=== PATIENT | male | born 1950 | race African-American/Black ===

== ENCOUNTER 2018-07-20 10:33 | Observation (INO) | payer MEDICARE ==
[2018-07-20 11:07] LABS: #Eosinphils 0.2 thou/uL (0.0-0.7); #Lymphocytes 1.3 thou/uL (1.20-3.40); #Monocytes 0.5 thou/uL (0.11-0.59); #Neutrophils 4.9 thou/uL (1.40-6.50); %Basophils 0.5 % (0.0-1.0); %Eosinophils 2.9 % (0.0-10.0); %Lymphocytes 18.5 % (21.0-51.0); %Monocytes 6.9 % (0.0-10.0); %Neutrophils 71.3 % (42.0-75.0); Hemoglobin 15.4 g/dL (14.0-18.0); Mean Corpuscular HGB CONC 32.6 g/dL (32.0-36.0); Mean Corpuscular Hemoglobin 31.2 pg (27.0-31.0); Mean Corpuscular Volume 95.6 fL (78.0-98.0); Platelet Count 145 thou/uL (130-400); Red Blood Cell (RBC) Count 4.93 mill/uL (4.70-6.10); White Blood Cell (WBC) Count 6.9 thou/uL (4.8-10.8)
--- NOTE | 2018-07-20 11:26 | CT ---
CT HEAD NONCONTRAST: INDICATIONS: Posttraumatic injury with pain. FINDINGS: The ventricular system is stable in size. There is mild chronic ischemic disease. No evidence of in tracranial hemorrhage, mass effect, or midline shift. There is scattered paranasal sinus mucosal thi ckening. No depressed calvarial fracture. There is a small lucency of the frontal bone, to the left of midline, grossly stable to the 01/21/2012 exam, favoring a benign vascular process. IMPRESSION: No evidence of intracranial hemorrhage or mass effect. POS: [facility]
[2018-07-20 11:33] LABS: ALT (SGPT) 9 U/L (8-55); AST (SGOT) 15 U/L (5-34); Albumin 3.6 g/dL (3.4-4.8); Alkaline Phosphatase 72 U/L (40-150); Anion Gap 23 mmol/L (10-20); BUN (Urea Nitrogen) 66 mg/dL (8.4-25.7); Bilirubin, Total 0.4 mg/dL (0.2-1.2); CK (CPK) 294 U/L (30-200); Calc. Creatinine Clearance 0 mL/min (70-130); Calcium 7.1 mg/dL (7.8-10.44); Carbon Dioxide 18 mmol/L (23-31); Chloride 98 mmol/L (98-107); Estimated GFR-MDRD 5; Glucose 112 mg/dL (80-115); Potassium 5.7 mmol/L (3.5-5.1); Protein, Total 9.6 g/dL (5.8-8.1); Sodium 133 mmol/L (136-145)
--- NOTE | 2018-07-20 11:49 | CT ---
CT CERVICAL SPINE WITHOUT CONTRAST: INDICATIONS: Fall last p.m. with injury to head. COMPARISON: Cervical spine CT from 03/26/2014. TECHNIQUE: Multiple axial tomograms are obtained through the cervical spine with multiplanar reconstruction. FINDINGS: The exam is degraded due to cervical spine hardware artifact. Sagittal images are especially degrade d. There are pedicle screws and rods transfixing the cervical spine bilaterally. Pedicle screws are see n at the C3, C4, C5, C6, C7, T1, and T2 levels. Rods are in place. Anterior plate and screws transfix C4, C5, and C6, with interbody fusion at these levels. There are interbody implants present. The hardware all appears unchanged in position when compared to the prior study. Posterior laminecto my changes are present throughout the cervical spine, to the C7 level. No acute fracture identified. IMPRESSION: 1. Limited examination due to artifact. 2. Postoperative changes are noted with extensive hardware in the cervical spine. 3. No acute fracture identified. POS: [facility]
--- NOTE | 2018-07-20 11:54 | CT ---
CT THORACIC SPINE: INDICATIONS: Fall with pain. FINDINGS: There is posterior metallic fusion, partially imaged at the upper thoracic spine, and partially visua lized ACDF changes at the lower cervical spine. No compression fracture or significant subluxation. Multilevel endplate degenerative change and multilevel endplate irregularities present, indicative o f Schmorl's node formation. No significant retropulsion of bone into the vertebral canal. Incidental note of an exophytic hypodensity from the partially visualized right kidney. Subtle lobul arity of the partially imaged left kidney also seen. Findings are incompletely evaluated. Incidental note of a dystrophic calcification adjacent to the posterior and medial aspect of the sple en. There is atherosclerosis. IMPRESSION: 1. No acute fracture or subluxation of the thoracic spine. There is multilevel degenerative change. 2. Incidental note of cystic structures of each kidney, incompletely evaluated. Consider followup w ith renal ultrasound. POS: [facility]
[2018-07-20] MEDS ORDERED: Senokot S 8.6-50 MG TAB PO PRN (14:25)
[2018-07-20] MEDS ORDERED: Acetaminophen 325 MG TAB PO PRN (14:25)
[2018-07-20] MEDS ORDERED: HumaLOG 300 UNITS/3 ML VIAL SC PRN (14:28)
[2018-07-20] MEDS ORDERED: Dextrose 50% Abboject 50 ML SYRINGE SLOW IVP PRN (14:28)
[2018-07-20] MEDS ORDERED: Dextrose 5% in Water 1,000 ML IV PRN (14:28)
--- NOTE | 2018-07-20 15:01 | HP ---
PRIMARY CARE PROVIDER: Dr. Yoselin Lopez. CHIEF COMPLAINT: Fall. HISTORY OF PRESENT ILLNESS: Mr. Alexander is a pleasant 68-year-old gentleman, who was seen at [facility] on July 20, 2018. He has end-stage renal disease and undergoes hemodialysis, Wednesday, Wednesday, and Wednesday. He reports that he was not feeling well two days ago, which is Wednesday. He did not go for dialysis. He also reports that he sleeps in a wheelchair in a seated position. He reports sliding out of the chair at times and falling to the ground. He had a fall last night as well. He reports falling on his face and states that he was too weak to get up. He was on the floor all night. His sister found him today morning and called 911. The patient currently denies any pain anywhere. He denies any nausea or vomiting. REVIEW OF SYSTEMS: All other systems reviewed and found to be negative. PAST MEDICAL HISTORY: End-stage renal disease, on hemodialysis, suspected chronic obstructive pulmonary disease, diabetes mellitus type 2 with end-stage renal disease, chronic back pain, myocardial infarction, cervical spondylosis with radiculopathy, hypertension. PAST SURGICAL HISTORY: Spinal surgery, cervical spine fixation, subtotal parathyroidectomy, status post left upper extremity AV fistula placement. ALLERGIES: CODEINE. CURRENT MEDICATIONS: These will need to be clarified, the patient does not recall the names of his current medications. FAMILY HISTORY: Significant for hypertension. SOCIAL HISTORY: The patient is a current smoker. 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 He denies alcohol use. PHYSICAL EXAMINATION: GENERAL: On examination, Mr. Alexander is awake and alert, not in acute distress. VITAL SIGNS: Blood pressure is 146/89, pulse 90, respiratory rate 16, and oxygen saturation 97% on room air. He is afebrile. EYES: No scleral icterus, no conjunctival pallor. ENT: Moist mucosal membranes. No oropharyngeal erythema or exudates. NECK: Supple, nontender, trachea is midline. RESPIRATORY: Accessory muscles of breathing are not active. Chest wall movements are symmetric bilaterally. LUNGS: Lung examination reveals few bibasilar crackles. CARDIOVASCULAR: S1 and S2 are heard, regular. Peripheral pulses palpable. No carotid bruit. No pericardial rub. ABDOMEN: Soft, nontender, bowel sounds heard, no hepatomegaly, no splenomegaly. NEUROLOGIC: Cranial nerves 2 through 12 intact, deep tendon reflexes 2+. MUSCULOSKELETAL: Power is 5/5 in all four extremities. SKIN: He has bilateral lower extremity edema. LYMPHATIC: No cervical lymphadenopathy. PSYCHIATRIC: Normal mood, normal affect, the patient is oriented to person, place, and time. LABORATORY DATA AND DIAGNOSTIC DATA: Mr. Alexander is labs and investigations were reviewed. I reviewed his electrocardiogram, which shows sinus tachycardia, no ST changes to suggest an acute coronary syndrome. I also reviewed a noncontrast CT scan of the brain, which did not show any evidence of intracranial bleed. He also had cervical spine CT, which did not show any acute fracture. He has postoperative changes with extensive hardware in the cervical spine. CT scan of the thoracic spine did not show any acute fracture or subluxation of the thoracic spine. He has multilevel degenerative change. Incidental note was made of cystic structures of each kidney. He has an unremarkable CBC, decreased sodium of 133, elevated potassium of 5.7, elevated anion gap of 23, elevated blood urea nitrogen of 66, elevated creatinine of 13.06, elevated CK of 294, and normal albumin. ASSESSMENT AND PLAN: Mr. Alexander is a pleasant 68-year-old gentleman, who was seen at [facility] on July 20, 2018. His problem list includes: 1. End-stage renal disease, on dialysis: The patient has a history of end-stage renal disease and was on hemodialysis Wednesday, Wednesday, and Wednesday. Unfortunately, he missed hemodialysis two days ago and has a significant biochemical abnormalities. He also appears to be in some degree of volume overload, judging by his chest crackles. He will be admitted to the hospital for further management including emergent hemodialysis. Nephrology Service has already been contacted by emergency room physician. 2. Fall: Mr. Alexander reports frequent falls. We will request physiotherapy evaluation. 3. Diabetes mellitus type 2: We will start Accu-Cheks and insulin sliding scale. 4. Hypertension: We will resume the patient's home medications once clarified, monitor vital signs, and titrate antihypertensives as needed. 5. Tobacco abuse: The patient has been counseled regarding tobacco cessation. We will start him on nicotine replacement therapy. 6. Coronary artery disease: Appears to be stable. Many thanks for allowing me to participate in your patient's care. Please feel free to contact me with any questions or concerns. LEVEL OF RISK: High. LEVEL OF COMPLEXITY: High. Job ID: [id number]
[2018-07-20] MEDS: Heparin 5,000 UNITS/ML VIAL SC SCH ×2 (15:30→20:04)
[2018-07-20 17:33] VITALS: BMI 41.3
[2018-07-21 05:06] LABS: #Eosinphils 0.2 thou/uL (0.0-0.7); #Lymphocytes 1.2 thou/uL (1.20-3.40); #Monocytes 0.4 thou/uL (0.11-0.59); #Neutrophils 4.4 thou/uL (1.40-6.50); %Basophils 0.5 % (0.0-1.0); %Eosinophils 3.7 % (0.0-10.0); %Monocytes 6.3 % (0.0-10.0); %Neutrophils 70.5 % (42.0-75.0); Hemoglobin 13.9 g/dL (14.0-18.0); Mean Corpuscular HGB CONC 32.9 g/dL (32.0-36.0); Mean Corpuscular Hemoglobin 31.3 pg (27.0-31.0); Mean Corpuscular Volume 95.2 fL (78.0-98.0); Mean Platelet Volume 9.3 fL (7.4-10.4); Platelet Count 136 thou/uL (130-400); RBC Distribution Width 12.8 % (11.5-14.5); Red Blood Cell (RBC) Count 4.44 mill/uL (4.70-6.10); White Blood Cell (WBC) Count 6.2 thou/uL (4.8-10.8)
[2018-07-21 05:35] LABS: Anion Gap 17 mmol/L (10-20); BUN (Urea Nitrogen) 30 mg/dL (8.4-25.7); Calc. Creatinine Clearance 15 mL/min (70-130); Calcium 7.2 mg/dL (7.8-10.44); Carbon Dioxide 24 mmol/L (23-31); Chloride 97 mmol/L (98-107); Estimated GFR-MDRD 8; Glucose 133 mg/dL (80-115); Potassium 4.3 mmol/L (3.5-5.1); Sodium 134 mmol/L (136-145)
--- NOTE | 2018-07-21 08:02 | RAD ---
CHEST 1 VIEW: HISTORY: Cough. COMPARISON: 11/20/2015. FINDINGS: Cardiac silhouette is magnified by projection. Pulmonary vasculature remains upper limits of normal. Mediastinum is midline with aortic calcification. No lobar consolidation or evidence of pneumothor ax. Left subclavian stent and postoperative changes of the cervicothoracic spine are again demonstra teofilo. IMPRESSION: 1. Mild pulmonary vascular congestion appears chronic. 2. Atherosclerosis. POS: [facility]
[2018-07-21] MEDS ORDERED: Nicotine 21 MG PATCH TD SCH (09:00)
[2018-07-21] MEDS: Heparin 5,000 UNITS/ML VIAL SC SCH ×2 (09:01→15:53)
[2018-07-21 12:17] VITALS: TEMP 98.2
[2018-07-21 15:38] VITALS: BP 125/60
--- NOTE | 2018-07-21 17:00 | DIS ---
DATE OF ADMISSION: 07/20/2018 DATE OF DISCHARGE: 07/21/2018 PRIMARY CARE PROVIDER: Yoselin Lopez MD DISCHARGE DIAGNOSES: 1. End-stage renal disease, on dialysis. 2. Missed dialysis session. 3. Probable volume overload. 4. Recurrent falls. CONDITION: Condition of the patient on the day of discharge: Stable. I assessed Mr. Alexander on the day of discharge. He denies any chest pain or shortness of breath. He reports feeling better. Vital signs are stable. S1 and S2 are heard, regular. Lungs are clear to auscultation bilaterally. HOSPITAL COURSE: Mr. Alexander is a pleasant 68-year-old gentleman, who was admitted to [facility] on July 20, 2018, for falls and missed dialysis session. Please refer to my history and physical note dated July 20, 2018, for further details. He underwent emergent hemodialysis by Nephrology Service. He improved clinically. He also has a history of recurrent falls. He was evaluated by Physical Therapy Service. He is being discharged home with home health with PT, OT, and Nursing. [facility] has been contacted for the same. DISCHARGE MEDICATIONS: 1. Amoxicillin 500 mg three times a day. 2. Aspirin 81 mg daily. 3. Tums 1000 mg at bedtime. 4. [place] p.r.n. 5. Metoprolol tartrate 12.5 mg 2 times a day. 6. Minoxidil 10 mg daily. 7. Lyrica 75 mg daily as needed. 8. Nicoderm CQ 21 mg daily. Please note that the above medications were as described by the patient to be his pre-admission home medications except for the nicotine patch. DISCHARGE DESTINATION: Home. Many thanks for allowing me to participate in your patient's care. Please feel free to contact me with any questions or concerns. Job ID: [id number]
--- NOTE | 2018-07-23 20:52 | EKG ---
Test Reason : FALL Blood Pressure : / mmHG Vent. Rate : 102 BPM Atrial Rate : 102 BPM P-R Int : 150 ms QRS Dur : 088 ms QT Int : 394 ms P-R-T Axes : 010 -41 063 degrees QTc Int : 513 ms Sinus tachycardia with occasional Premature ventricular complexes Left axis deviation Low voltage QRS Abnormal ECG Confirmed by CHRIS ANDERSON, OLVIN Hernandez ([id number]), medical transcription editor CAESAR LENTZ ([id number]) on 07/23/2018 8:52:38 PM Referred By: Confirmed By:OLVIN PEREZ MD
== END 2018-07-21 17:23 | disposition home or self-care (01) ==
LOC: ERS 10:33 → ERHOLD 12:13 → 2SW 17:09
PROVIDERS: ADMIT Internal Medicine; ATTEND Internal Medicine
DX: I12.0 Hypertensive chronic kidney disease with stage 5 chronic kidney disease or end stage renal disease (principal); E11.22 Type 2 diabetes mellitus with diabetic chronic kidney disease; N18.6 End stage renal disease; G89.29 Other chronic pain; M54.9 Dorsalgia, unspecified; I25.2 Old myocardial infarction; F17.210 Nicotine dependence, cigarettes, uncomplicated; F11.11 Opioid abuse, in remission; I25.10 Atherosclerotic heart disease of native coronary artery without angina pectoris; Z91.81 History of falling; Z99.2 Dependence on renal dialysis; Z88.5 Allergy status to narcotic agent; Z79.82 Long term (current) use of aspirin; Z79.899 Other long term (current) drug therapy; Z98.1 Arthrodesis status; W19.XXXA Unspecified fall, initial encounter
CPT/HCPCS: 70450; 71045; 72125; 72128; 80048; 80053; 82550; 82962 ×2; 83605; 85025 ×2; 93005; 94640; 97530; 99285; G0378; 36415; 36416; 96360; J1644; J7620

== ENCOUNTER 2019-05-08 12:32 | Inpatient (IN) | payer MEDICARE ==
--- NOTE | 2019-05-08 13:31 | RAD ---
Portable frontal chest radiograph: 05/08/2019 COMPARISON: 07/21/2018 HISTORY: Weakness FINDINGS: There is extensive postoperative hardware at the cervicothoracic junction. There is extensi ve vascular stent material in the supraclavicular region on the left. The cardiac silhouette is enlarged which may signify magnification and/or cardiomegaly. There is pulmonary vascular congestion, worsened. There is increased linear interstitial density in both lung bases, new. IMPRESSION: Pulmonary vascular congestion with increased linear density in both lung bases may signif y mild pulmonary edema or volume loss. PA and lateral imaging of the chest suggested.
[2019-05-08 13:33] LABS: INR-International Normal Ratio 1.2; PTT 35.9 SEC (22.9-36.1); Prothrombin Time 14.7 SEC (12.0-14.7)
[2019-05-08 13:34] LABS: Hemoglobin 12.6 g/dL (14.0-18.0); Mean Corpuscular HGB CONC 33.9 g/dL (32.0-36.0); Mean Corpuscular Hemoglobin 31.9 pg (27.0-31.0); Mean Platelet Volume 8.9 fL (7.4-10.4); Platelet Count 140 thou/uL (130-400); RBC Distribution Width 13.4 % (11.5-14.5); Red Blood Cell (RBC) Count 3.95 mill/uL (4.70-6.10); White Blood Cell (WBC) Count 16.1 thou/uL (4.8-10.8)
[2019-05-08] MEDS ORDERED: Acetaminophen 500 MG TAB ONE (13:35)
[2019-05-08 13:55] LABS: ALT (SGPT) 8 U/L (8-55); AST (SGOT) 15 U/L (5-34); Albumin 3.6 g/dL (3.4-4.8); Alkaline Phosphatase 77 U/L (40-110); Anion Gap 22 mmol/L (10-20); BUN (Urea Nitrogen) 54 mg/dL (8.4-25.7); Bilirubin, Total 0.5 mg/dL (0.2-1.2); CK (CPK) 177 U/L (30-200); Calc. Creatinine Clearance 0 mL/min (70-130); Calcium 7.7 mg/dL (7.8-10.44); Carbon Dioxide 17 mmol/L (23-31); Chloride 100 mmol/L (98-107); Estimated GFR-MDRD 7; Globulin 5.7 g/dL (2.4-3.5); Glucose 153 mg/dL (80-115); Potassium 5.5 mmol/L (3.5-5.1); Protein, Total 9.3 g/dL (5.8-8.1); Sodium 133 mmol/L (136-145)
[2019-05-08] MEDS ORDERED: Sodium Chloride 0.9% 100 ML ONE (14:05)
[2019-05-08] MEDS ORDERED: cefTRIAXone\\ROCEPHIN 2 GM VIAL ONE (14:05)
[2019-05-08] MEDS ORDERED: Azithromycin 500 MG VIAL ONE (14:05)
[2019-05-08 14:09] LABS: Band 13 % (5-11); Lymphocytes 2 % (21-51); Monocytes 1 % (0-10); Neutrophil 83 % (42-75); Reactive Lymphocytes 1 % (0-10)
[2019-05-08 14:10] LABS: MDiff Complete? YES; Polychromasia SLIGHT = 2-3 cells (100X) (0-2/hpf)
[2019-05-08] MEDS ORDERED: Dextrose 50% Abboject 50 ML SYRINGE SLOW IVP PRN (15:22)
[2019-05-08] MEDS ORDERED: Dextrose 5% in Water 1,000 ML IV PRN (15:22)
[2019-05-08 17:04] LABS: CKMB 1.8 ng/mL (0-6.6)
[2019-05-08 19:39] LABS: CO2 Tension 43.1 mmHg (35.0-45.0); Calcium, Ionized 0.99 mmol/L (1.12-1.30); Carboxyhemoglobin (COHb) 2.4 gm% (0.0-3.0); Hemoglobin (Hb) 12.7 g/dL (14.0-18.0); Potassium - ABG Lab 4.31 mmol/L (3.70-5.30)
[2019-05-08 19:40] LABS: ALV-art Gradient 30.855 (0-20); Puncture Site R RADIAL
[2019-05-08] MEDS: Famotidine 20 MG TAB PO SCH (20:45)
[2019-05-08] MEDS: Heparin 5,000 UNITS/ML VIAL SC SCH (20:45)
[2019-05-08] MEDS: Metoprolol Tartrate 25 MG TAB PO SCH (20:45)
[2019-05-08 20:58] LABS: CKMB 2.2 ng/mL (0-6.6)
--- NOTE | 2019-05-08 21:38 | HP ---
CHIEF COMPLAINT: Weakness. HISTORY OF PRESENT ILLNESS: This patient is a 68-year-old male with a history of end-stage renal disease, on dialysis. The patient was last admitted here in June 2018, at which time, he apparently had fallen out of his wheelchair, and was too weak to get up. Apparently that same scenario played out again today. Apparently, it was a witnessed slide out of his recliner onto the ground gently with his back resting up against the recliner. He was unable to get up because he was too weak and fire department was called in order to give lift assistance. They noted the patient to be febrile, tachycardic and generally weak. He was subsequently brought to the emergency department. He denies any cough or sputum production (the patient did cough some during my interview with him). He denies any abdominal pain, chest pain, diarrhea, or constipation. Says he has been eating. Says he was supposed to get dialysis today, but missed that. He actually denies any significant shortness of breath. REVIEW OF SYSTEMS: All other systems reviewed. All pertinent positives and negatives noted in the history of present illness. PAST MEDICAL HISTORY: End-stage renal disease, on hemodialysis, COPD, diabetes mellitus, chronic back pain, history of an WI, history of cervical spondylosis with radiculopathy and hypertension. PAST SURGICAL HISTORY: Cervical spinal fixation with rods and screws. History of a subtotal parathyroidectomy and left upper extremity AV fistula placement. ALLERGIES: CODEINE. CURRENT MEDICATIONS: 1. Levemir 20 units t.i.d. 2. Metoprolol 25 mg b.i.d. 3. Bellamy 5/325 q.6 hours p.r.n. pain. PHYSICAL EXAMINATION: VITAL SIGNS: Initially, BP 131/74, pulse 117, respirations 36, temperature is 101.8, O2 saturation 96% on room air. GENERAL APPEARANCE: The patient is age appropriate. He is sleeping. He does awaken with stimulus, but tends to go back to sleep fairly easily. He is otherwise conversant. HEENT: He has very muddy sclera, some opacity of the irises. He has no OP lesions. Very long tongue with generally compromised airway from large tongue and a thick neck. NECK: Supple and symmetric. HEART: Regular rate and rhythm without murmurs, gallops, or rubs. LUNGS: Very diminished throughout with minimal scattered rales. No rhonchi. No wheezes. ABDOMEN: Morbidly obese, soft, nontender, and nondistended. Positive bowel sounds. No masses. No organomegaly. EXTREMITIES: No cyanosis. He does have chronic stasis dermatitis with some superficial open lesions with some possible excoriations in these areas as well. NEUROLOGIC: The patient has normal cognition when awake. Normally functioning cranial nerves. Moves extremities spontaneously. Has no evidence of focal deficits. PSYCHIATRIC: Again, he is somnolent, but easily awaken and otherwise appropriate with normal affect and behavior. LABORATORY DATA: White count 16.1, hemoglobin 12.6, platelets 140, neutrophils 83%, bands 13%, lymphocytes 2%. INR 1.2. PTT 35.9. Sodium 133, potassium 5.5, chloride 100, CO2 is 27, BUN 54, creatinine is 9.75, glucose 153, calcium is 7.7. Lactic acid 1.9, bilirubin 0.5, AST 15, ALT 18, and alkaline phosphatase 77. Troponin 0.062. BNP is 344.3, protein 9.3, albumin 3.6. Chest x-ray, pulmonary vascular congestion with increased linear density in both lung bases, which may signify mild pulmonary edema with volume loss. EKG shows a sinus tachycardia with some left axis deviation. ED COURSE: The patient received 1 L of normal saline, ceftriaxone 2 g IV piggyback and azithromycin 500 mg IV piggyback as well as Tylenol 1 g. IMPRESSION AND PLAN: 1. Sepsis secondary to pneumonia. The patient has received a liter of fluids in the emergency department. He appears to have some volume overload on his chest x-ray. Therefore, further aggressive fluid resuscitation is likely contraindicated. 2. Pneumonia. He has received Rocephin and azithromycin for community-acquired pneumonia. We will continue with those while the patient is here in the hospital. We will give p.r.n. nebulizer treatments at this time. We will also check an ABG. His CO2 on his venous chemistries is not bad. He seems to be saturating okay, but he is a little bit obtunded. We want to make sure that there is nothing more going on with that. We will continue with supplemental oxygen as needed. 3. Ongoing tobacco abuse. Can provide nicotine patch if he should need one going forward. 4. End-stage renal disease, on dialysis. Dr. Pan indicated he would talk to Dr. Mota as the patient would need dialysis today especially after getting some fluid resuscitation given his potassium and the fact that it is his usual dialysis day. 5. Diabetes mellitus, Accu-Cheks sliding scale insulin. 6. Hypertension. Continue with metoprolol. 7. Indeterminate troponin, likely secondary to his end-stage renal disease. We will go ahead and check a couple more. Job ID: [id number]
[2019-05-09] MEDS: Metoprolol Tartrate 25 MG TAB PO SCH ×2 (05:51→20:05)
[2019-05-09 05:55] LABS: #Lymphocytes 0.6 thou/uL (1.20-3.40); #Monocytes 0.5 thou/uL (0.11-0.59); #Neutrophils 12.9 thou/uL (1.40-6.50); %Basophils 0.1 % (0.0-1.0); %Eosinophils 0.3 % (0.0-10.0); %Lymphocytes 4.5 % (21.0-51.0); %Monocytes 3.4 % (0.0-10.0); %Neutrophils 91.8 % (42.0-75.0); Hemoglobin 12.1 g/dL (14.0-18.0); Mean Corpuscular HGB CONC 33.3 g/dL (32.0-36.0); Mean Corpuscular Hemoglobin 32.2 pg (27.0-31.0); Mean Corpuscular Volume 96.9 fL (78.0-98.0); Mean Platelet Volume 8.2 fL (7.4-10.4); Platelet Count 124 thou/uL (130-400); RBC Distribution Width 13.6 % (11.5-14.5); Red Blood Cell (RBC) Count 3.75 mill/uL (4.70-6.10); White Blood Cell (WBC) Count 14.1 thou/uL (4.8-10.8)
[2019-05-09 06:11] LABS: Anion Gap 14 mmol/L (10-20); BUN (Urea Nitrogen) 29 mg/dL (8.4-25.7); Calc. Creatinine Clearance 20 mL/min (70-130); Calcium 7.5 mg/dL (7.8-10.44); Carbon Dioxide 26 mmol/L (23-31); Chloride 98 mmol/L (98-107); Estimated GFR-MDRD 11; Glucose 98 mg/dL (80-115); Potassium 4.6 mmol/L (3.5-5.1); Sodium 133 mmol/L (136-145)
[2019-05-09] MEDS: Famotidine 20 MG TAB PO SCH (09:09)
[2019-05-09] MEDS: Heparin 5,000 UNITS/ML VIAL SC SCH (09:21)
[2019-05-09] MEDS ORDERED: Heparin 10,000 UNITS/ 10 ML VIAL ONE (11:11)
[2019-05-09] MEDS ORDERED: cefTRIAXone\\ROCEPHIN 1 GM in Sodium Chloride 0.9% 100 ML IVPB SCH (14:00)
[2019-05-09] MEDS ORDERED: Vancomycin HCl 1 GM in Premix Bag 1 BAG IVPB SCH ×2 (14:15→14:45)
[2019-05-09] MEDS ORDERED: Vancomycin HCl 1.25 GM in Sodium Chloride 0.9% 250 ML 250 ML IVPB SCH (14:45)
[2019-05-09] MEDS ORDERED: Vancomycin HCl 750 MG in Sodium Chloride 0.9% 250 ML 250 ML IVPB SCH (14:45)
[2019-05-09] MEDS ORDERED: Vancomycin Sliding Scale 1 EACH FS ONE (14:45)
[2019-05-09] MEDS ORDERED: Vancomycin HCl 1.5 GM in Sodium Chloride 0.9% 250 ML 300 ML IVPB SCH (14:45)
[2019-05-09] MEDS ORDERED: HOLD VANCOMYCIN FOR LEVEL >20 FS SCH (14:45)
[2019-05-09] MEDS ORDERED: Vancomycin HCl 500 MG in Sodium Chloride 0.9% 100 ML IVPB SCH (15:00)
[2019-05-09] MEDS ORDERED: Cefepime 1 GM in Sodium Chloride 0.9% 100 ML IVPB SCH (15:00)
[2019-05-09] MEDS ORDERED: Azithromycin 500 MG in Sodium Chloride 0.9% 250 ML 250 ML IVPB SCH (15:00)
--- NOTE | 2019-05-09 15:50 | CT ---
CT CHEST WITHOUT CONTRAST CLINICAL INDICATION: Cough and pneumonia. Abnormal chest x-ray. Sepsis. COMPARISON: CTA chest on 11/23/2015. FINDINGS: Aorta: Limited evaluation due to lack of intravenous contrast. Vascular calcifications are seen in th e thoracic aorta. The thoracic aorta is normal in caliber. Lungs: There is no evidence of a pleural effusion. There is atelectasis present in the lower lung zon es bilaterally. No discrete pulmonary nodule or mass is identified. Mediastinum: Vascular calcifications are seen in the coronary arteries. Lack of intravenous contrast limits evaluation of the mediastinal structures, no definite enlarged lymph nodes are appreciated. The heart is at the upper limits of normal in size. Thyroid gland: Grossly normal nonenhanced CT appearance where visualized. Osseous structures: There are postsurgical changes of the cervicothoracic junction with bipedicular s crews and posterior rods transfixing these levels. Laminectomy defects are imaged involving the lower cervical spine. Degenerative changes are seen in the spine. There are lucencies seen in a few i nferior endplates of the lower thoracic spine which may be related to prominent Schmorl's nodes. Chest wall: There are vascular stents seen in the region of the cephalic and subclavian veins. Upper abdomen: Multiple hypodense and hyperdense renal cystic lesions are seen in each visualized kid nahed with prominent vascular calcifications in the abdominal aorta as well as involving the renal arteries and visualized mesenteric vessels. IMPRESSION: 1. No acute findings. 2. Additional incidental findings as described above.
[2019-05-09] MEDS ORDERED: Sodium Chloride 0.9% 250 ML IV SCH (16:30)
--- NOTE | 2019-05-09 17:49 | PRG ---
DATE OF SERVICE: 05/09/2019 SUBJECTIVE: A 68-year-old male with end-stage renal disease on hemodialysis, hypertension, and diabetes mellitus type 2, presented to the emergency room with generalized weakness. He was unable to get dialysis yesterday due to significant weakness. His temperature in the emergency room was 101.8 with respirations of 36, pulse rate of 117 with a blood pressure of 131/74. He received ceftriaxone with azithromycin for possible pneumonia. At this time, the patient feels the same. He denies any nausea, vomiting, diarrhea, abdominal discomfort, back pain, or focal neurologic deficit. No skin rash reported. REVIEW OF SYSTEMS: As discussed above. No cough, shortness of breath, or wheezing reported. PHYSICAL EXAMINATION: VITAL SIGNS: Temperature 100.1 with pulse rate of 120, respirations of 25, blood pressure 114/47 with O2 saturation 95% on room air. GENERAL: A 68-year-old male, in no apparent distress. Denies any pain. HEENT: Head, atraumatic and normocephalic. Sclerae anicteric. NECK: Supple. No JVD. No carotid bruit. LUNGS: Clear to auscultation bilaterally with scattered rales and rhonchi at bases. No accessory muscle use. HEART: S1 and S2 present, tachycardic. No rubs or gallops. ABDOMEN: Soft. Bowel sounds present. EXTREMITIES: Edema in bilateral lower extremity. No calf tenderness. NEUROLOGIC: Grossly nonfocal. PSYCHIATRIC: Alert, awake, and oriented x3. Normal affect. LABORATORY FINDINGS: WBC 16.1 yesterday and 14.1 today. He had 13% bandemia yesterday. Hemoglobin 12.1. ABGs in the emergency room showed pH of 7.4 with O2 saturation of 93.7. Troponin of 0.107. Sodium of 133, potassium 4.6, chloride 98, BUN 29, creatinine 6.33. Blood culture 1 of 2 is positive for Streptococcus. CT scan of the chest without contrast was negative for acute findings. IMPRESSION: 1. Severe sepsis with Streptococcus bacteremia. Source is unclear. CT chest was negative for pneumonia. 2. Volume overload due to missed hemodialysis/acute on chronic diastolic heart failure. 3. Type 2 myocardial infarction. 4. Chronic anemia secondary to renal insufficiency. 5. Hyperkalemia with metabolic acidosis secondary to missed hemodialysis. 6. Generalized weakness, multifactorial. 7. Diabetes mellitus type 2, diet controlled. 8. Chronic back pain. 9. Coronary artery disease, status post LA in the past. 10. Hypertension with hypertensive heart disease. 11. Thrombocytopenia. 12. Morbid obesity with a BMI of 41.8. 13. Hyponatremia. 14. Hypocalcemia. PLAN: We will discontinue azithromycin. We will start him on cefepime along with vancomycin. Infectious Disease consultation. Due to thrombocytopenia, we will hold subcu heparin. Physical Therapy and Occupational Therapy have been consulted. We will reduce metoprolol dose to 12.5 twice a day due to blood pressure on the lower side. Monitor vancomycin level. Recheck labs in a.m. Continue telemetry monitoring. We will obtain echocardiogram. Dialysis per Dr. Mota. Plan of care was discussed with the patient in detail. He stated understanding. Job ID: [id number]
[2019-05-09] MEDS: Artificial Tears 18 DROP/0.9 ML EA EYE SCH ×2 (19:12→20:04)
[2019-05-10 05:44] LABS: #Eosinphils 0.2 thou/uL (0.0-0.7); #Lymphocytes 0.9 thou/uL (1.20-3.40); #Monocytes 0.5 thou/uL (0.11-0.59); #Neutrophils 9.1 thou/uL (1.40-6.50); %Basophils 0.1 % (0.0-1.0); %Eosinophils 1.6 % (0.0-10.0); %Lymphocytes 8.2 % (21.0-51.0); %Monocytes 4.5 % (0.0-10.0); %Neutrophils 85.6 % (42.0-75.0); Hemoglobin 11.7 g/dL (14.0-18.0); Mean Corpuscular Hemoglobin 31.7 pg (27.0-31.0); Platelet Count 124 thou/uL (130-400); RBC Distribution Width 13.6 % (11.5-14.5); Red Blood Cell (RBC) Count 3.68 mill/uL (4.70-6.10); White Blood Cell (WBC) Count 10.7 thou/uL (4.8-10.8)
[2019-05-10 06:06] LABS: ALT (SGPT) Less than 7 U/L (8-55); AST (SGOT) 19 U/L (5-34); Albumin 3.2 g/dL (3.4-4.8); Alkaline Phosphatase 65 U/L (40-110); Anion Gap 17 mmol/L (10-20); BUN (Urea Nitrogen) 43 mg/dL (8.4-25.7); Bilirubin, Total 0.4 mg/dL (0.2-1.2); Calc. Creatinine Clearance 16 mL/min (70-130); Calcium 7.4 mg/dL (7.8-10.44); Carbon Dioxide 21 mmol/L (23-31); Chloride 98 mmol/L (98-107); Estimated GFR-MDRD 8; Globulin 5.5 g/dL (2.4-3.5); Glucose 108 mg/dL (80-115); Potassium 4.6 mmol/L (3.5-5.1); Protein, Total 8.7 g/dL (5.8-8.1); Sodium 131 mmol/L (136-145)
[2019-05-10] MEDS: Famotidine 20 MG TAB PO SCH (09:00)
[2019-05-10] MEDS: Aspirin 81 mg Enteric Coated Tablet PO SCH (09:00)
[2019-05-10] MEDS: Artificial Tears 18 DROP/0.9 ML EA EYE SCH ×3 (09:00→21:19)
[2019-05-10] MEDS: Metoprolol Tartrate 25 MG TAB PO SCH ×2 (09:00→20:42)
[2019-05-10 13:43] LABS: Vancomycin, Random 19.9 ug/mL (See Comment)
--- NOTE | 2019-05-10 13:56 | PQF ---
ANA EPNNY MALIK MD [id number] CLINICAL DOCUMENTATION IMPROVEMENT CLARIFICATION FORM: ICD-10 Updated PLEASE DO AN ADDENDUM TO THE PROGRESS NOTE WITH ANY DOCUMENTATION UPDATES OR ADDITIONS AND CARRY THROUGH TO DC SUMMARY. THANK YOU. DATE: 05/10/19 ATTN: Dr. Farias Please exercise your independent, professional judgment in responding to the clarification form. Clinical indicators are provided on the bottom of this form for your review Please check appropriate box(es): [ x ] Sepsis due to: Beta-hemolytic Streptococcus bacteremia [ ] Sepsis due to CAP(Community acquired pneumonia [ ] Sepsis due to pneumonia(please specify organism) [ ] Other diagnosis [ ] Unable to determine In addition, please specify: Present on Admission (POA): [ x ] Yes [ ] No [ ] Unable to determine For continuity of documentation, please document condition throughout progress notes and discharge summary. Thank You. CLINICAL INDICATORS - SIGNS / SYMPTOMS / LABS / RESULTS AND LOCATION IN 05/08 VS Pulse 120 Respiratory rate >20/min--> RR 25 per 05/08 VS "Metabolic acidosis" per 05/09 Ladha 05/09 Ladha: " thrombocytopenia" 05/09 lab: plt 124 WBC count 16.1 05/08 lab Positive blood cultures--> 05/08 microlab: Beta-hemolytic Streptococcus RISK FACTORS / RESULTS AND LOCATION IN Infection/Bacteremia--> 04/28 H&P: "sepsis secondary to pneumonia" TREATMENTS / RESULTS AND LOCATION IN 05/08 Telemetry orders Daily CBC 05/08 orders Blood cultures 05/08 orders ID Consult 05/09 per orders IV antibiotics - broad spectrum--> 05/08: Rocephin 2G IV, Azithromycin 500MG IV x1 to Cefepime 1gm (05/09); Vancomycin 2gm(05/09) to Cefepime 0.5 gm IV 05/10 IV Fluids--> ED: 1 L NS bolus 05/08 per orders (This form is maintained as a part of the permanent medical record) 2014 [employer] All Rights Reserved Samantha Regalado RN, BSN, CCDS [email or web address] [facility]
[2019-05-10] MEDS ORDERED: Cefepime 0.5 GM, Admixture Fee 1 EACH in Sodium Chloride 0.9% 100 ML IVPB SCH (15:00)
[2019-05-10] MEDS ORDERED: Nitroglycerin 0.4 MG TAB (25 Tab Bottle) PO PRN (19:06)
--- NOTE | 2019-05-10 19:21 | CON ---
DATE OF CONSULTATION: 05/10/2019 REASON FOR CONSULTATION: Bacteremia. HISTORY OF PRESENT ILLNESS: A 68-year-old who has a history of type 2 diabetes; end-stage renal disease, on hemodialysis with an AV fistula, was recently admitted actually a few months ago for a missed dialysis session and volume overload, and now, he comes in because of weakness, he had to miss his dialysis appointment on the day of admission because of feeling unwell. Initial findings included a temperature 101.8. He was tachypneic and tachycardic. Blood pressure 130/74. He had coarse breath sounds. There was some abdominal distention and chronic venous stasis changes in the lower extremities. Initial laboratory data; white cell count 16,000, hemoglobin 12.6, platelets 140, with 82% neutrophils. INR 1.2. Sodium 133, creatinine 9.75, carbon dioxide 17. Liver profile normal. Calcium 7.7, albumin 3.6, total protein 9.3. Previous total protein levels have been elevated all the way back to 2011. 1/2 sets of blood cultures has yielded beta-hemolytic Streptococcus. The patient has been treated with cefepime and vancomycin, and currently he is being dialyzed. He is awake. He is oriented. Denies headaches. 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 No neck pain. No back pain. No dyspnea or chest pain. No abdominal pain. He does not have any urine output. No diarrhea. The patient has noticed pain and swelling of the left groin region. Physical exam findings are discussed below. No neurological symptoms. No pain in lower extremities outside the left groin region. PAST MEDICAL HISTORY: Obesity, type 2 diabetes, end-stage renal disease, coronary artery disease with prior myocardial infarction, hypertension, stasis dermatitis in lower extremities. PAST SURGICAL HISTORY: Includes spinal cervical fusion, parathyroidectomy, AV fistula placement. ALLERGIES: CODEINE. MEDICATIONS: Medications have been discussed above. In addition to the antimicrobials. He is on, 1. Inhalers. 2. Aspirin. 3. Pepcid. 4. Metoprolol b.i.d. PHYSICAL EXAMINATION: VITAL SIGNS: T-max 100.1, he has been afebrile since. Blood pressure 119/64, pulse 96, respirations 18, O2 saturation 93. SKIN: This area of stasis dermatitis in both lower extremities. He also has an area of lymphedema in the left groin proximal left thigh which is tender to palpation. There are changes of peau d'orange. Peripheral IV access. No lymphadenopathy. HEENT: Ocular movements are conjugate. Dense cataract, right eye. Left intraocular media are patent. Pupils are equal, miotic. Oral cavity with no significant findings. NECK: Supple. LUNGS: Symmetric. Clear breath sounds. HEART: S1 and S2 without murmurs. No S3 or S4. ABDOMEN: Protuberant, but not tender. No ascites. No bladder distention. No organomegaly. EXTREMITIES: No joint inflammatory activity. There is an area of focal lymphedema with moderate tenderness on palpation, which is something new. His pulses are diminished in dorsalis pedis, 1+ in popliteals. Changes of stasis dermatitis in lower extremities, but no edema. He is able to move extremities on command. There is quite a bit of onychodystrophy/onychomycosis and pretty much all the toenails. He moves his extremities otherwise symmetric early. NEUROLOGIC: He is oriented. Follows commands. LABORATORY DATA: White cell count is down to 10.7, hemoglobin 11.7, platelets 124. Sodium 133, creatinine 9.75. IMAGING DATA: 1. There is CT of chest, which showed no acute findings. Cystic lesions in the kidneys noted. ASSESSMENT: 1. Type 2 diabetes. 2. End-stage renal disease, on hemodialysis. 3. Fever, general malaise, and beta-hemolytic streptococcal bacteremia. 4. Lymphedema, left groin, focal lymphedema with cellulitis. DISCUSSION: The most likely scenario is cellulitis at the left groin area of lymphedema. This is unusual because it is very limited to the proximal thigh. We will transition to Rocephin daily. Discontinue remainder antimicrobials. The type of organism is either group A, B, C or G Streptococcus, which are typical skin organisms. There is no evidence of intraabdominal or respiratory tract involvement and no evidence of bone or joint involvement at this point in time. We will image the pelvis and see if there are changes that would suggest an abscess formation in the left side. This to be done with contrast tomorrow. Job ID: [id number]
[2019-05-10] MEDS: cefTRIAXone\\ROCEPHIN 1 GM in Sodium Chloride 0.9% 100 ML IVPB SCH (19:29)
--- NOTE | 2019-05-10 19:45 | PDOC.HOSPP ---
- Subjective Encounter Date: 05/10/19 Encounter Time: 13:00 Subjective: Patient seen and examined during dialysis. No CP/SOB/cough/fever. Feels better. No N/V. No new complaints. No overnight events - Objective Vital Signs & Weight: Vital Signs (12 hours) Temp Pulse Resp BP Pulse Ox 05/10/19 18:50 99.1 F 106 H 22 H 120/56 L 95 05/10/19 12:00 97.9 F 96 18 119/64 93 L 05/10/19 10:46 97 20 05/10/19 07:55 98.7 F 118 H 13 115/53 L 97 Weight Weight 282 lb 13.649 oz I&O: 05/09/19 05/10/19 05/11/19 06:59 06:59 06:59 Intake Total 150 1880 Balance 150 1880 Result Diagrams: 05/10/19 05:08 05/10/19 05:08 Additional Labs: Accuchecks 05/10/19 05/10/19 05/09/19 10:31 05:59 20:11 POC Glucose 168 H 105 160 H EKG Reviewed by me: Yes (Tele SR) Hospitalist ROS - Review of Systems Respiratory: denies: cough, dry, shortness of breath, hemoptysis, SOB with excertion, pleuritic pain, sputum, wheezing, other Cardiovascular: denies: chest pain, palpitations, orthopnea, paroxysmal noc. dyspnea, edema, light headedness, other Gastrointestinal: denies: nausea, vomiting, abdominal pain, diarrhea, constipation, melena, hematochezia, other - Medication Medications: Active Medications Generic Name Dose Route Start Last Admin Trade Name Freq PRN Reason Stop Dose Admin Albuterol/Ipratropium 3 ml 05/09/19 14:30 05/10/19 18:44 Duoneb NEB Not Given [id number] JOSE LUIS Artificial Tears 0 drop 05/09/19 15:00 05/10/19 15:00 Tears Naturale EA EYE Not Given TID JOSE LUIS Aspirin 81 mg 05/10/19 09:00 05/10/19 09:00 Ecotrin PO 81 mg DAILY JOSE LUIS Administration Famotidine 20 mg 05/10/19 09:00 05/10/19 09:00 Pepcid PO 20 mg DAILY JOSE LUIS Administration Ceftriaxone Sodium 1 gm/ 100 mls @ 200 mls/hr 05/10/19 18:30 05/10/19 19:29 Sodium Chloride IVPB 100 mls Q24HR JOSE LUIS Administration - Exam General Appearance: NAD Heart: RRR, no gallops Respiratory: CTAB, no rales, no ronchi Gastrointestinal: soft, non-tender, normal bowel sounds Extremities: no cyanosis, 1+ LE edema Hosp A/P - Plan PT/OT, DVT proph w/heparin 1. Severe sepsis with Beta hemolytic Streptococcus bacteremia/Cellulitis. 2. Volume overload due to missed hemodialysis/acute on chronic diastolic heart failure. 3. Type 2 myocardial infarction. 4. Chronic anemia secondary to renal insufficiency. 5. Hyperkalemia with metabolic acidosis secondary to missed hemodialysis. 6. Generalized weakness, multifactorial. 7. Diabetes mellitus type 2, diet controlled. 8. Chronic back pain. 9. Coronary artery disease, status post [place] in the past. 10. Hypertension with hypertensive heart disease. 11. Thrombocytopenia. 12. Morbid obesity with a BMI of 41.8. 13. Hyponatremia. 14. Hypocalcemia. PLAN: Cefepime changed to Ceftriaxone CT pelvis pending Cont other meds s/p dialysis today AM labs Update @1900: New onset Afib - HR in 100s. Will increase Metoprolol to 25 BID. Consult Cardiology in AM. Echo pending.
[2019-05-10] MEDS: Heparin 5,000 UNITS/ML VIAL SC SCH (20:41)
[2019-05-11 05:23] LABS: #Eosinphils 0.2 thou/uL (0.0-0.7); #Lymphocytes 0.7 thou/uL (1.20-3.40); #Monocytes 0.3 thou/uL (0.11-0.59); #Neutrophils 6.6 thou/uL (1.40-6.50); %Basophils 0.2 % (0.0-1.0); %Lymphocytes 9.1 % (21.0-51.0); %Neutrophils 84.8 % (42.0-75.0); Hemoglobin 11.6 g/dL (14.0-18.0); Mean Corpuscular HGB CONC 33.7 g/dL (32.0-36.0); Mean Corpuscular Hemoglobin 32.1 pg (27.0-31.0); Mean Corpuscular Volume 95.3 fL (78.0-98.0); Mean Platelet Volume 8.5 fL (7.4-10.4); Platelet Count 141 thou/uL (130-400); RBC Distribution Width 13.4 % (11.5-14.5); Red Blood Cell (RBC) Count 3.62 mill/uL (4.70-6.10); White Blood Cell (WBC) Count 7.8 thou/uL (4.8-10.8)
[2019-05-11 05:50] LABS: ALT (SGPT) 11 U/L (8-55); AST (SGOT) 27 U/L (5-34); Albumin 3.1 g/dL (3.4-4.8); Alkaline Phosphatase 72 U/L (40-110); Anion Gap 16 mmol/L (10-20); BUN (Urea Nitrogen) 27 mg/dL (8.4-25.7); Bilirubin, Total 0.5 mg/dL (0.2-1.2); Calc. Creatinine Clearance 22 mL/min (70-130); Calcium 7.6 mg/dL (7.8-10.44); Carbon Dioxide 24 mmol/L (23-31); Chloride 100 mmol/L (98-107); Estimated GFR-MDRD 12; Globulin 5.6 g/dL (2.4-3.5); Glucose 130 mg/dL (80-115); Potassium 4.5 mmol/L (3.5-5.1); Protein, Total 8.7 g/dL (5.8-8.1); Sodium 135 mmol/L (136-145)
--- NOTE | 2019-05-11 09:55 | ULT ---
ULTRASOUND WITH DOPPLER DUPLEX VENOUS LOWER EXTREMITY BILATERAL: Date: 05/11/19 CPT: 28676 ICD-10-PCS: B54D INDICATION: Edema. TECHNIQUE: Color flow Doppler, spectral waveform analysis of pulsed Doppler, and bansal-scale imaging with ammy geraldo and augmentation, were used to evaluate the bilateral common femoral, femoral, popliteal, railroad yard worker ior tibial, and superficial femoral, veins; and the proximal portions of the profunda femoral and gre ater saphenous, veins. FINDINGS: There is lack of complete compressibility of the femoral vein in the right lower extremity, distally, although it is difficult to reliably visualize intraluminal contents due to decreased acoustic penet ration of this region. A mild degree of increased echogenicity does layer peripherally and therefore may be related to sequelae from chronic thrombus. There is also incomplete compressibility involving the left femoral vein. Incidental note of enlarged lymph nodes of the left inguinal region. IMPRESSION: 1. Bilateral partially occlusive thrombus involving the femoral veins. 2. Incidental note of left inguinal adenopathy. Correlate clinically. POS: OFF
[2019-05-11] MEDS ORDERED: Heparin 10,000 UNITS/ 10 ML VIAL SLOW IVP SCH (10:15)
[2019-05-11 10:59] LABS: Hemoglobin 11.3 g/dL (14.0-18.0); Platelet Count 143 thou/uL (130-400)
[2019-05-11] MEDS: Aspirin 325 mg Enteric Coated Tablet PO SCH (11:19)
[2019-05-11] MEDS: Aspirin 81 mg Enteric Coated Tablet PO SCH ×2 (11:20→11:22)
[2019-05-11] MEDS: Famotidine 20 MG TAB PO SCH (11:20)
[2019-05-11] MEDS: Metoprolol Tartrate 25 MG TAB PO SCH ×2 (11:20→20:33)
[2019-05-11] MEDS: Artificial Tears 18 DROP/0.9 ML EA EYE SCH ×3 (11:20→20:33)
[2019-05-11] MEDS: Heparin 5,000 UNITS/ML VIAL SC SCH (11:21)
[2019-05-11] MEDS: Heparin 25,000 units/D5W 500 ML IVPB SCH (11:41)
--- NOTE | 2019-05-11 15:41 | CT ---
CT PELVIS WITH CONTRAST: DATE: 05/11/2019. TIME: 9:00 AM. INDICATION: Bacteremia with tender mass in the left inguinal region with lymphedema. COMPARISON: CT lumbar spine dated January 05, 2012. FINDING: There is a mildly prominent lymph node with the left inguinal region measuring 2.1 cm. Additional mil dly prominent shotty appearing lymph nodes within the left inguinal region. There is a mildly prominent left external iliac lymph node measuring 1 cm. No definite drainable fluid collection or la rge soft tissue mass is evident. There is heterotopic ossification seen involving the iliopsoas musculature atrophy bilaterally. There are periarticular erosions involving both femurs. Endplate ero sive change involving L4-5 and L5-S1 appear similar to the comparison CT examination of the lumbar spine. No acute fracture is evident. No free fluid is evident within the pelvis. There are vascular c alcifications involving the vas deferens. There is a suggestion of some mild skin thickening reticulation overlying the left thigh proximally which may reflect adjacent left thigh cellulitis. R ecommend correlation with clinical exam. IMPRESSION: 1. Mildly prominent left inguinal lymphadenopathy. Possible left thigh cellulitis. Recommend correlat ion with clinical exam 2. Periarticular erosive change involving both hips is suspicious for underlying inflammatory arthrit is. There is degenerative change with endplate lucencies of the lower lumbar spine that appear similar to the prior examination. Findings may related to a renal osteodystrophy or possibly amyloid deposition. Transcribed Date/Time: 05/11/2019 3:58 PM
[2019-05-11 16:48] LABS: PTT 142.5 SEC (22.9-36.1)
--- NOTE | 2019-05-11 16:49 | PRG ---
DATE OF SERVICE: 05/11/2019 SUBJECTIVE: Mr. Alexander denies any chest pain. No shortness of breath or abdominal pain. Moderate pain in the left groin at the site of focal lymphedema with cellulitis. OBJECTIVE: VITAL SIGNS: His T-max is 98.6, blood pressure 170/74, pulse 101, respirations 26. GENERAL: Awake, alert. LUNGS: Symmetric, clear breath sounds. HEART: S1 and S2, regular rate. ABDOMEN: Soft: Left groin now with lymphedematous changes with tenderness, Peau-d'orange changes. LABORATORY DATA: White cell count down to 7.8, hemoglobin 11.6. Blood culture with Streptococcus dysgalactiae, which is group C Streptococcus. Pelvis CT showed findings consistent with cellulitis with a little area of lymphadenitis as well. Venogram was done with evidence of occlusive thrombus involving the femoral veins. ASSESSMENT AND DISCUSSION: Type 2 diabetes; end-stage renal disease, on hemodialysis; fever; beta-hemolytic strep bacteremia; lymphedema with cellulitis, left groin; now he has also deep vein thrombosis in the femoral veins, which is probably is chronic and bilateral. Continue Rocephin, eventual transition to Keflex, anticoagulation. Job ID: [id number]
--- NOTE | 2019-05-11 19:26 | CON ---
DATE OF CONSULTATION: 05/11/2019 REASON FOR CONSULTATION: AFib with RVR. HISTORY OF PRESENT ILLNESS: Mr. Alexander is a pleasant 68-year-old gentleman who comes to the hospital for weakness. He has end-stage renal disease and is on hemodialysis. He was feeling extremely weak to the point where he could not even sit on his wheelchair. He was brought in and found to be septic with cellulitis on his thigh as well. He was admitted, placed on IV antibiotics. On telemetry monitoring, an EKG showed AFib with RVR, so he was put in telemetry and Cardiology is being consulted for this. PAST MEDICAL HISTORY: 1. End-stage renal disease, on hemodialysis. 2. COPD. 3. Type 2 diabetes. 4. Chronic back pain. 5. History of [place] in the past. 6. Cervical spondylosis with radiculopathy. 7. Hypertension. PAST SURGICAL HISTORY: 1. Cervical spine fixation with rods and screws. 2. Subtotal parathyroidectomy. 3. Left upper extremity AV fistula placement. OUTPATIENT MEDICATIONS: Include; 1. Levemir 20 units t.i.d. 2. Metoprolol 25 mg b.i.d. 3. [place] p.r.n. for pain. ALLERGIES: CODEINE. FAMILY HISTORY: Noncontributory. REVIEW OF SYSTEMS: A 12-point review of systems was done and was all negative unless stated in the history of present illness. PHYSICAL EXAMINATION: VITAL SIGNS: Temperature 98.8, pulse 98, respiratory rate 19, saturating 92% on room air, blood pressure 155/73. GENERAL: Awake, alert, oriented x3, in no distress. HEENT: Normocephalic and atraumatic. NECK: Supple. LUNGS: Clear. CARDIOVASCULAR: S1 and S2. No S3 or S4. There is a grade 3/6 systolic murmur, likely referred sounds from fistula. ABDOMEN: Soft. Positive bowel sounds. EXTREMITIES: No edema. Left upper extremity fistula. SKIN: Warm and dry. LABORATORY DATA: Laboratory work was reviewed. White count was 16 on admission, down to 7, hemoglobin 11.6, hematocrit of 34, and platelet count 141. ABG was reviewed. Chemistries were reviewed. BUN and creatinine are high. GFR of 12. Normal electrolytes. Calcium was 7.6. CRP was 15. BNP on admission at 344. Troponin was 0.06, 0.10, and 0.15, indeterminate range. Albumin of 3.6. EKGs were reviewed. Telemetry was reviewed. ASSESSMENT: 1. Atrial fibrillation with rapid ventricular rate. Back in sinus rhythm. Likely, paroxysmal atrial fibrillation. 2. Lower extremity deep vein thrombosis. 3. End-stage renal disease, on hemodialysis. 4. Cellulitis with bacteremia. PLAN: 1. Full anticoagulation for both his DVTs as well as his risk of stroke from his atrial fibrillation. 2. Agree with beta patrick just for now. Most likely, his heart was ramped up given his acute infection. 3. Continue other medications. 4. Continue antibiotics per Primary Team. Thank you for letting us to participate in the care of your patient. We will follow. Job ID: [id number]
[2019-05-11] MEDS: cefTRIAXone\\ROCEPHIN 1 GM in Sodium Chloride 0.9% 100 ML IVPB SCH (19:37)
--- NOTE | 2019-05-11 20:59 | PDOC.HOSPP ---
- Subjective Encounter Date: 05/11/19 Encounter Time: 13:30 Subjective: Patient seen and examined for Sepsis. No new complaints. No fever. No new complaints. No overnight events - Objective Vital Signs & Weight: Vital Signs (12 hours) Temp Pulse Resp BP Pulse Ox 05/11/19 18:29 96 16 94 L 05/11/19 17:03 98.8 F 98 19 155/73 H 92 L 05/11/19 12:00 98.2 F 101 H 26 H 171/74 H 05/11/19 10:39 108 H 20 95 Weight Admit Weight 282 lb 13.649 oz Weight 282 lb 13.649 oz I&O: 05/10/19 05/11/19 05/12/19 06:59 06:59 06:59 Intake Total 1880 1160 Output Total 2500 Balance 1880 -1340 Result Diagrams: 05/11/19 10:53 05/11/19 04:55 Additional Labs: Accuchecks 05/11/19 05/11/19 05/11/19 16:35 10:45 05:52 POC Glucose 132 H 115 H 116 H 05/10/19 20:36 POC Glucose 151 H Radiology Reviewed by me: Yes (Doppler - DVT, CT pelvis - cellulitis) EKG Reviewed by me: Yes (Tele SR) Hospitalist ROS - Review of Systems Respiratory: denies: cough, dry, shortness of breath, hemoptysis, SOB with excertion, pleuritic pain, sputum, wheezing, other Cardiovascular: denies: chest pain, palpitations, orthopnea, paroxysmal noc. dyspnea, edema, light headedness, other - Medication Medications: Active Medications Generic Name Dose Route Start Last Admin Trade Name Freq PRN Reason Stop Dose Admin Albuterol/Ipratropium 3 ml 05/09/19 14:30 05/11/19 18:29 Duoneb NEB 3 ml [id number] JOSE LUIS Administration Artificial Tears 0 drop 05/09/19 15:00 05/11/19 20:33 Tears Naturale EA EYE Not Given TID JOSE LUIS Aspirin 81 mg 05/10/19 09:00 05/11/19 11:22 Ecotrin PO Not Given DAILY JOSE LUIS Aspirin 325 mg 05/11/19 09:00 05/11/19 11:19 Ecotrin PO 325 mg DAILY JOSE LUIS Administration Famotidine 20 mg 05/10/19 09:00 05/11/19 11:20 Pepcid PO 20 mg DAILY JOSE LUIS Administration Ceftriaxone Sodium 1 gm/ 100 mls @ 200 mls/hr 05/10/19 18:30 05/11/19 19:37 Sodium Chloride IVPB 100 mls Q24HR JOSE LUIS Administration Heparin Sodium/Dextrose 500 mls @ 0 mls/hr 05/11/19 10:15 05/11/19 11:41 Heparin 25,000 Units/D5w 500 Ml IVPB 500 mls INF JOSE LUIS Administration Protocol Per Protocol Metoprolol Tartrate 25 mg 05/10/19 21:00 05/11/19 20:33 Lopressor PO 25 mg BID JOSE LUIS Administration - Exam General Appearance: NAD Heart: RRR, no gallops, no rubs, normal peripheral pulses Respiratory: CTAB, no wheezes, no rales, normal chest expansion, rhonchi Gastrointestinal: soft, non-tender, non-distended, normal bowel sounds Extremities: no cyanosis, no clubbing Neurological: no new deficit Psychiatric: normal affect, A&O x 3 Hosp A/P - Plan DVT proph w/heparin 1. Severe sepsis with Beta hemolytic Streptococcus bacteremia/Cellulitis. 2. Volume overload due to missed hemodialysis/acute on chronic diastolic heart failure. 3. Par Afib - new onset 4. Chronic anemia secondary to renal insufficiency. 5. B/L LE DVT - prob chronic 6. Generalized weakness, multifactorial. 7. Diabetes mellitus type 2, diet controlled. 8. Chronic back pain. 9. Coronary artery disease, status post [place] in the past. 10. Hypertension with hypertensive heart disease. 11. Thrombocytopenia. 12. Morbid obesity with a BMI of 41.8. 13. Hyponatremia. 14. Hypocalcemia. 15. Type 2 myocardial infarction. 16. Hyperkalemia with metabolic acidosis secondary to missed hemodialysis. 17. Swallow dys PLAN: Start Heparin drip - Patient understands the risk associated with anticoag Start Warfarin later today Cont Ceftriaxone CT pelvis - Cellulitis Plan d/w Dr Mota - Dr Mota agreed to follow Warfarin as outpt Cont Metoprolol AM labs Cont other meds
[2019-05-11] MEDS ORDERED: Warfarin Sodium 5 MG TAB PO SCH (21:15)
[2019-05-12] MEDS: Temazepam 15 MG CAP PO PRN (03:45)
[2019-05-12 04:23] LABS: Hemoglobin 12.3 g/dL (14.0-18.0); Platelet Count 150 thou/uL (130-400)
[2019-05-12] MEDS: Heparin 25,000 units/D5W 500 ML IVPB SCH ×2 (04:23→22:38)
[2019-05-12 04:28] LABS: INR-International Normal Ratio 1.2
[2019-05-12 04:31] LABS: PTT 119.9 SEC (22.9-36.1)
[2019-05-12] MEDS: Aspirin 81 mg Enteric Coated Tablet PO SCH ×2 (10:14→13:09)
[2019-05-12] MEDS ORDERED: Heparin 1,000 UNITS/ML VIAL ONE (11:11)
[2019-05-12] MEDS: Metoprolol Tartrate 25 MG TAB PO SCH ×2 (12:27→21:30)
[2019-05-12] MEDS: Artificial Tears 18 DROP/0.9 ML EA EYE SCH ×3 (12:27→21:30)
[2019-05-12] MEDS: Famotidine 20 MG TAB PO SCH (13:07)
[2019-05-12] MEDS: Aspirin 325 mg Enteric Coated Tablet PO SCH (13:27)
--- NOTE | 2019-05-12 13:38 | PDOC.CPN ---
- Subjective Date: 05/12/19 Time: 13:37 Interval history: He is dong well. Tolerated dialysis earlier today well. - Review of Systems General: denies: fever/chills, weight/appetite/sleep changes, night sweats, fatigue Respiratory: denies: cough, congestion, shortness of breath, exercise intolerance Cardiovascular: denies: chest pain, palpitation, edema, paroxysmal nocturnal dyspnea, orthopnea Gastrointestinal: denies: nausea, vomiting, diarrhea, constipation, abd pain, GI bleeding Musculoskeletal: denies: pain, tenderness, stiffness, swelling, arthritis/ arthralgias Neurological: denies: numbness, syncope, seizure, weakness - Objective Allergies/Adverse Reactions: Allergies Allergy/AdvReac Type Severity Reaction Status Date / Time codeine Allergy Intermediate Verified 05/09/19 07:26 Visit Medications: Current Medications Acetaminophen (Tylenol) 650 mg PO Q4H PRN PRN Reason: Headache/Fever/Mild Pain (1-3) Albuterol/Ipratropium (Duoneb) 3 ml NEB [id number] PRN PRN Reason: SOB &/or Wheezing Albuterol/Ipratropium (Duoneb) 3 ml NEB [id number] [facility] Last Admin: 05/12/19 09:53 Dose: Not Given Artificial Tears (Tears Naturale) 0 drop EA EYE TID [facility] Last Admin: 05/12/19 12:27 Dose: Not Given Aspirin (Ecotrin) 81 mg PO DAILY [facility] Last Admin: 05/12/19 13:09 Dose: 81 mg Dextrose/Water (Dextrose 50%) 25 gm SLOW IVP PRN PRN PRN Reason: Hypoglycemia Famotidine (Pepcid) 20 mg PO DAILY [facility] Last Admin: 05/12/19 13:07 Dose: 20 mg Glucagon (Glucagon) 1 mg IM PRN PRN PRN Reason: Hypoglycemia Heparin Sodium (Porcine) (Heparin 1,000 Units/Ml (10 Ml)) 0 units SLOW IVP ASDIR [facility]; Protocol Dextrose/Water (D5w) 1,000 mls @ 0 mls/hr IV .Q0M PRN PRN Reason: Hypoglycemia Ceftriaxone Sodium 1 gm/ (Sodium Chloride) 100 mls @ 200 mls/hr IVPB Q24HR [facility] Last Admin: 05/11/19 19:37 Dose: 100 mls Heparin Sodium/Dextrose (Heparin 25,000 Units/D5w 500 Ml) 500 mls @ 0 mls/hr IVPB INF JOSE LUIS; Protocol Last Admin: 05/12/19 04:23 Dose: 500 mls Insulin Human Lispro (Humalog) 0 units SC .MILD SLIDING SCALE PRN PRN Reason: Mild Correctional Scale Metoprolol Tartrate (Lopressor) 25 mg PO BID [facility] Last Admin: 05/12/19 12:27 Dose: Not Given Miscellaneous Medication (Pharmacy To Dose) 1 each IVPB PRN PRN PRN Reason: Pharmacy to dose Miscellaneous Medication (Pharmacy To Dose) 1 each PO .WARFARIN [facility] Nitroglycerin (Nitrostat) 0.4 mg PO Q5MIN PRN PRN Reason: Chest Pain Hold Vancomycin For (Level >20) 0 each FS .AT DIALYSIS [facility] Sodium Chloride (Flush - Normal Saline) 10 ml IVF PRN PRN PRN Reason: Saline Flush Temazepam (Restoril) 15 mg PO HS PRN PRN Reason: Insomnia Last Admin: 05/12/19 03:45 Dose: 15 mg Warfarin Sodium (Coumadin) 5 mg PO 1700 [facility] Vital Signs & Weight: Vital Signs Temp Pulse Resp BP Pulse Ox 05/12/19 06:42 99 05/12/19 06:40 99 16 99 05/12/19 05:01 94 L 05/12/19 04:00 98.8 F 126 H 22 H 131/75 92 L Admit Weight 282 lb 13.649 oz Weight 282 lb 13.649 oz - Physical Exam General: alert & oriented x3 HEENT: mucus membranes moist Neck: supple neck Cardiac: regular rate and rhythm Lungs: normal breath sounds Neuro: grossly intact Abdomen: active bowel sounds Skin: clear Musculoskeletal: no pain - Labs Result Diagrams: 05/12/19 03:42 05/11/19 04:55 Troponin/CKMB CK-MB (CK-2) 2.2 ng/mL (0-6.6) 05/08/19 20:06 Troponin I 0.153 ng/mL (< 0.028) H 05/08/19 20:06 - Telemetry Sinus rhythms and dysrhythmias: sinus rhythm - Assessment/Plan Assessment/Plan: 1. Afib RVR, back in sinus 2. DVT 3. ESRD on HD 4. Cellulitis with bacteremia PLAN: - Continue BB and Full anticoagulation for DVT and stroke prophylaxis. - Agree with switch to Warfarin bridge.
[2019-05-12] MEDS: Warfarin Sodium 5 MG TAB PO SCH (16:52)
[2019-05-12] MEDS: cefTRIAXone\\ROCEPHIN 1 GM in Sodium Chloride 0.9% 100 ML IVPB SCH (17:25)
--- NOTE | 2019-05-12 23:49 | PDOC.HOSPP ---
- Subjective Encounter Date: 05/12/19 Encounter Time: 09:45 Subjective: Patient seen and examined during dialysis. No CP or SOB. No fever. Feeling better. No bleeding. No new complaints. No overnight events - Objective Vital Signs & Weight: Vital Signs (12 hours) Temp Pulse Pulse Pulse Resp BP Pulse Ox 05/12/19 21:44 100 16 98 05/12/19 18:25 99 20 95 05/12/19 16:00 160/75 H 05/12/19 14:19 94 100 05/12/19 13:55 104 H 20 88 L 05/12/19 12:35 98.9 F 103 H 20 150/60 H 94 L Weight Admit Weight 282 lb 13.649 oz Weight 282 lb 13.649 oz I&O: 05/11/19 05/12/19 05/13/19 06:59 06:59 06:59 Intake Total 6281 342 6579 Output Total 2500 Balance -[phone] Result Diagrams: 05/12/19 03:42 05/11/19 04:55 Additional Labs: Accuchecks 05/12/19 05/12/19 05/12/19 16:40 12:50 05:57 POC Glucose 152 H 104 129 H 05/11/19 20:23 POC Glucose 146 H EKG Reviewed by me: Yes (Tele SR) Hospitalist ROS - Review of Systems Respiratory: denies: cough, dry, shortness of breath, hemoptysis, SOB with excertion, pleuritic pain, sputum, wheezing, other Cardiovascular: denies: chest pain, palpitations, orthopnea, paroxysmal noc. dyspnea, edema, light headedness, other - Medication Medications: Active Medications Generic Name Dose Route Start Last Admin Trade Name Freq PRN Reason Stop Dose Admin Albuterol/Ipratropium 3 ml 05/09/19 14:30 05/12/19 21:44 Duoneb NEB 3 ml [id number] JOSE LUIS Administration Artificial Tears 0 drop 05/09/19 15:00 05/12/19 21:30 Tears Naturale EA EYE Not Given TID JOSE LUIS Aspirin 81 mg 05/10/19 09:00 05/12/19 13:09 Ecotrin PO 81 mg DAILY JOSE LUIS Administration Famotidine 20 mg 05/10/19 09:00 05/12/19 13:07 Pepcid PO 20 mg DAILY JOSE LUIS Administration Ceftriaxone Sodium 1 gm/ 100 mls @ 200 mls/hr 05/10/19 18:30 05/12/19 17:25 Sodium Chloride IVPB 100 mls Q24HR JOSE LUIS Administration Heparin Sodium/Dextrose 500 mls @ 0 mls/hr 05/11/19 10:15 05/12/19 22:38 Heparin 25,000 Units/D5w 500 Ml IVPB 500 mls INF JOSE LUIS Administration Protocol Per Protocol Metoprolol Tartrate 25 mg 05/10/19 21:00 05/12/19 21:30 Lopressor PO 25 mg BID JOSE LUIS Administration Temazepam 15 mg 05/12/19 01:23 05/12/19 03:45 Restoril PO 15 mg HS PRN Administration Insomnia Warfarin Sodium 5 mg 05/12/19 17:00 05/12/19 16:52 Coumadin PO 5 mg 1700 JOSE LUIS Administration - Exam General Appearance: NAD Neck: supple, no JVD Heart: RRR, no gallops Respiratory: CTAB, no rales, no ronchi Gastrointestinal: soft, non-tender, normal bowel sounds Hosp A/P - Plan DVT proph w/SCDs 1. Severe sepsis with Beta hemolytic Streptococcus bacteremia/Cellulitis. 2. Volume overload due to missed hemodialysis/acute on chronic diastolic heart failure. 3. Par Afib - new onset 4. Chronic anemia secondary to renal insufficiency. 5. B/L LE DVT - prob chronic 6. Generalized weakness, multifactorial. 7. Diabetes mellitus type 2, diet controlled. 8. Chronic back pain. 9. Coronary artery disease, status post [place] in the past. 10. Hypertension with hypertensive heart disease. 11. Thrombocytopenia. 12. Morbid obesity with a BMI of 41.8. 13. Hyponatremia. 14. Hypocalcemia. 15. Type 2 myocardial infarction. 16. Hyperkalemia with metabolic acidosis secondary to missed hemodialysis. 17. Swallow dys PLAN: Cont Heparin drip with Warfarin DC Heparin drip when INR is therapeutic Cont Ceftriaxone for Cellulitis/bacteremia Dr Nando Mota agreed to follow Warfarin as outpt Cont Metoprolol 25 mg BID AM labs Cont other meds
[2019-05-13 05:02] LABS: INR-International Normal Ratio 1.3; Prothrombin Time 16.2 SEC (12.0-14.7)
[2019-05-13 05:03] LABS: PTT 95.3 SEC (22.9-36.1)
[2019-05-13 05:12] LABS: Anion Gap 15 mmol/L (10-20); BUN (Urea Nitrogen) 20 mg/dL (8.4-25.7); Calc. Creatinine Clearance 23 mL/min (70-130); Calcium 7.4 mg/dL (7.8-10.44); Carbon Dioxide 29 mmol/L (23-31); Chloride 97 mmol/L (98-107); Estimated GFR-MDRD 13; Glucose 107 mg/dL (80-115); Potassium 3.9 mmol/L (3.5-5.1); Sodium 137 mmol/L (136-145)
[2019-05-13] MEDS: Famotidine 20 MG TAB PO SCH (08:59)
[2019-05-13] MEDS: Aspirin 81 mg Enteric Coated Tablet PO SCH (08:59)
[2019-05-13] MEDS: Metoprolol Tartrate 25 MG TAB PO SCH ×2 (08:59→20:08)
[2019-05-13] MEDS: Artificial Tears 18 DROP/0.9 ML EA EYE SCH ×3 (11:17→20:08)
--- NOTE | 2019-05-13 11:48 | PRG ---
DATE OF SERVICE: 05/13/2019 SUBJECTIVE: The patient is seen and examined at bedside. He feels significantly better. He has some complaints about lower abdomen. His appetite is fair. He is able to ambulate with a walker. OBJECTIVE: VITAL SIGNS: Blood pressure is 144/64, pulse is 96, temperature is 99.1, respirations 16, O2 saturation is 96% on room air. HEENT: His head is atraumatic and normocephalic. Eyes are PERRLA. Sclerae are nonicteric. Conjunctivae are pinkish. Oral mucosa is moist. NECK: Supple. LUNGS: Clear. HEART: S1 and S2 normal. No S3. No S4. ABDOMEN: Obese, soft, nontender. EXTREMITIES: 1+ peripheral edema similar bilaterally on both lower extremities. Left groin area, skin looks good. There is no erythema. NEUROLOGIC: He follows my commands. He moves his all 4 extremities. There are no any motor or sensory deficits. LABORATORY DATA: Showed PT of 16.2, INR 1.3, APTT 95.3. Sodium of 137, potassium 3.9, chloride 97, CO2 of 29, BUN 20, creatinine of 5.46, glucose 115, calcium 7.4. IMPRESSION: 1. Severe sepsis with beta-hemolytic Streptococcus bacteremia/cellulitis. 2. Paroxysmal atrial fibrillation, now in sinus rhythm, started on warfarin and continued to be on heparin at this point. 3. Chronic anemia secondary to renal insufficiency. 4. Bilateral lower extremity deep vein thrombosis, most likely chronic. 5. Diabetes mellitus, type 2. 6. Coronary artery disease, status post [place] in the past. 7. History of thrombocytopenia. 8. Hypertension. 9. End-stage renal disease, on hemodialysis 3 times a week. PLAN: Plan is to continue his 5 mg of warfarin daily. INR is up to 1.3. We will continue heparin drip. We will continue his IV Rocephin for his beta-hemolytic strep infection. We will continue his beta patrick and aspirin. We are awaiting for rehabilitation center to approve him. If it happens over the weekend, he will be transferred there to complete his INR adjustments with warfarin and heparin, and get physical therapy for his generalized deconditioning. Job ID: [id number]
[2019-05-13] MEDS: Warfarin Sodium 5 MG TAB PO SCH (15:46)
[2019-05-13] MEDS: Acetaminophen 325 MG TAB PO PRN ×2 (15:46→20:08)
[2019-05-13] MEDS: cefTRIAXone\\ROCEPHIN 1 GM in Sodium Chloride 0.9% 100 ML IVPB SCH (18:19)
[2019-05-13] MEDS: HYDROcodone/Acetaminophen 10/325 mg Tablet PO PRN (21:51)
[2019-05-14] MEDS: Temazepam 15 MG CAP PO PRN (01:12)
[2019-05-14 04:33] LABS: Platelet Count 167 thou/uL (130-400)
[2019-05-14 04:41] LABS: INR-International Normal Ratio 1.7; Prothrombin Time 19.5 SEC (12.0-14.7)
[2019-05-14 04:54] LABS: PTT 207.3 SEC (22.9-36.1)
[2019-05-14 06:46] LABS: INR-International Normal Ratio 1.6; PTT 54.6 SEC (22.9-36.1); Prothrombin Time 19.4 SEC (12.0-14.7)
[2019-05-14] MEDS: Aspirin 81 mg Enteric Coated Tablet PO SCH (08:56)
[2019-05-14] MEDS: Famotidine 20 MG TAB PO SCH (08:56)
[2019-05-14] MEDS: Artificial Tears 18 DROP/0.9 ML EA EYE SCH ×3 (08:56→21:18)
[2019-05-14] MEDS: Metoprolol Tartrate 25 MG TAB PO SCH ×2 (08:56→21:18)
[2019-05-14] MEDS: Heparin 25,000 units/D5W 500 ML IVPB SCH (08:57)
--- NOTE | 2019-05-14 10:58 | PRG ---
DATE OF SERVICE: 05/14/2019 SUBJECTIVE: The patient is seen and examined at the bedside. His is present in the room during my visit. He wants to go home. She noticed that he is on and off confused, but this fluctuates. His appetite is fair. OBJECTIVE: VITAL SIGNS: Blood pressure is 166/83, pulse is 83, temperature is 98.1, respirations 18, O2 saturation is 96% on 1.5 L by nasal cannula. HEENT: His head is atraumatic and normocephalic. Conjunctivae are pinkish. Oral mucosa is moist. NECK: Obese and supple. LUNGS: Breath sounds diminished at both bases. HEART: S1 and S2 normal. No S3. No S4. ABDOMEN: Soft, nontender, and obese. EXTREMITIES: 1+ peripheral edema similar bilateral on both lower extremities. NEUROLOGIC: He follows my commands. He knows where he is. He knows the year, but he does not know the time and the day. He is able to move his all 4 extremities. There is no any motor deficits. LABORATORY DATA: Labs showed hemoglobin of 10.0, hematocrit 29.8, and platelet count 167. INR 1.6, PT of 19.4, and APTT 54.6. Glycemia is ranging from 139 to 149. IMPRESSION: 1. Severe sepsis with beta-hemolytic Streptococcus bacteremia/cellulitis, improved. 2. Paroxysmal atrial fibrillation, now in sinus rhythm, started on warfarin and on heparin drip. INR is 1.6 today. We will continue Coumadin 5 mg daily. 3. Chronic anemia secondary to renal insufficiency. 4. Bilateral lower extremity deep vein thrombosis, most likely chronic. He is on heparin and warfarin at this point. 5. Diabetes mellitus type 2, relatively well controlled. 6. Coronary artery disease, status post myocardial infarction in the past. 7. History of thrombocytopenia. 8. Hypertension. 9. End-stage renal disease, on hemodialysis 3 times a week. PLAN: Plan is to continue his 5 mg of warfarin daily. His INR is 1.6 today. We will continue his heparin drip until INR is above 2. We will continue his IV Rocephin for his beta-hemolytic strep infection. He will continue on rest of the regimen. We will get a counter caser to arrange [facility] facility for PT and OT. Job ID: [id number]
[2019-05-14] MEDS: Acetaminophen 325 MG TAB PO PRN ×2 (13:14→21:23)
[2019-05-14 15:31] LABS: PTT 123.7 SEC (22.9-36.1)
[2019-05-14] MEDS: Warfarin Sodium 5 MG TAB PO SCH (17:58)
[2019-05-14] MEDS: cefTRIAXone\\ROCEPHIN 1 GM in Sodium Chloride 0.9% 100 ML IVPB SCH (17:58)
[2019-05-14] MEDS ORDERED: Mag-Al 1200 mg/1200 mg/30 ML UDCUP PO PRN (23:34)
[2019-05-14] MEDS ORDERED: Bisacodyl 5 MG TAB PO PRN (23:34)
[2019-05-15] MEDS ORDERED: Ketorolac Tromethamine 30 MG/ML VIAL IVP SCH (00:45)
[2019-05-15 06:25] LABS: INR-International Normal Ratio 2.8; Prothrombin Time 29.3 SEC (12.0-14.7)
[2019-05-15 11:41] LABS: Prothrombin Time 30.8 SEC (12.0-14.7)
[2019-05-15] MEDS: Aspirin 81 mg Enteric Coated Tablet PO SCH (13:47)
[2019-05-15] MEDS: Famotidine 20 MG TAB PO SCH (13:48)
[2019-05-15] MEDS: Metoprolol Tartrate 25 MG TAB PO SCH ×2 (13:48→21:09)
[2019-05-15] MEDS: Artificial Tears 18 DROP/0.9 ML EA EYE SCH ×3 (13:48→22:07)
[2019-05-15] MEDS: Polyethylene Glycol 3350 17 GM Packet PO SCH ×2 (13:49→21:09)
[2019-05-15] MEDS: Ketorolac Tromethamine 30 MG/ML VIAL IVP PRN ×2 (15:44→22:06)
--- NOTE | 2019-05-15 17:59 | PDOC.CPN ---
- Subjective Date: 05/15/19 Time: 17:57 Interval history: No new issues. No chest pain. Tolerating Dialysis. - Review of Systems General: denies: fever/chills, weight/appetite/sleep changes, night sweats, fatigue Respiratory: denies: cough, congestion, shortness of breath, exercise intolerance Cardiovascular: denies: chest pain, palpitation, edema, paroxysmal nocturnal dyspnea, orthopnea Gastrointestinal: denies: nausea, vomiting, diarrhea, constipation, abd pain, GI bleeding Musculoskeletal: denies: pain, tenderness, stiffness, swelling, arthritis/ arthralgias Neurological: denies: numbness, syncope, seizure, weakness - Objective Allergies/Adverse Reactions: Allergies Allergy/AdvReac Type Severity Reaction Status Date / Time codeine Allergy Intermediate Verified 05/09/19 07:26 Visit Medications: Current Medications Acetaminophen (Tylenol) 650 mg PO Q4H PRN PRN Reason: Headache/Fever/Mild Pain (1-3) Last Admin: 05/14/19 21:23 Dose: 650 mg Hydrocodone Bitart/Acetaminophen ([place] 10/325) 1 tab PO Q8H PRN PRN Reason: Moderate Pain (4-6) Last Admin: 05/13/19 21:51 Dose: 1 tab Al Hydroxide/Mg Hydroxide (Maalox) 30 ml PO Q6H PRN PRN Reason: GI Cramping Last Admin: 05/15/19 00:46 Dose: 30 ml Albuterol/Ipratropium (Duoneb) 3 ml NEB [id number] PRN PRN Reason: SOB &/or Wheezing Albuterol/Ipratropium (Duoneb) 3 ml NEB [id number] [facility] Last Admin: 05/15/19 14:38 Dose: 3 ml Artificial Tears (Tears Naturale) 0 drop EA EYE TID [facility] Last Admin: 05/15/19 14:26 Dose: Not Given Aspirin (Ecotrin) 81 mg PO DAILY [facility] Last Admin: 05/15/19 13:47 Dose: 81 mg Bisacodyl (Dulcolax) 10 mg PO DAILYPRN PRN PRN Reason: Constipation Last Admin: 05/15/19 00:47 Dose: 10 mg Dextrose/Water (Dextrose 50%) 25 gm SLOW IVP PRN PRN PRN Reason: Hypoglycemia Famotidine (Pepcid) 20 mg PO DAILY [facility] Last Admin: 05/15/19 13:48 Dose: 20 mg Glucagon (Glucagon) 1 mg IM PRN PRN PRN Reason: Hypoglycemia Dextrose/Water (D5w) 1,000 mls @ 0 mls/hr IV .Q0M PRN PRN Reason: Hypoglycemia Ceftriaxone Sodium 1 gm/ (Sodium Chloride) 100 mls @ 200 mls/hr IVPB Q24HR [facility] Last Admin: 05/14/19 17:58 Dose: 100 mls Insulin Human Lispro (Humalog) 0 units SC .MILD SLIDING SCALE PRN PRN Reason: Mild Correctional Scale Ketorolac Tromethamine (Toradol) 15 mg IVP Q6H PRN PRN Reason: Pain Stop: 05/20/19 06:46 Last Admin: 05/15/19 15:44 Dose: 15 mg Metoprolol Tartrate (Lopressor) 25 mg PO BID [facility] Last Admin: 05/15/19 13:48 Dose: 25 mg Miscellaneous Medication (Pharmacy To Dose) 1 each IVPB PRN PRN PRN Reason: Pharmacy to dose Miscellaneous Medication (Pharmacy To Dose) 1 each PO .WARFARIN [facility] Nitroglycerin (Nitrostat) 0.4 mg PO Q5MIN PRN PRN Reason: Chest Pain Hold Vancomycin For (Level >20) 0 each FS .AT DIALYSIS [facility] Polyethylene Glycol (Miralax) 17 gm PO BID [facility] Last Admin: 05/15/19 13:49 Dose: 17 gm Sodium Chloride (Flush - Normal Saline) 10 ml IVF PRN PRN PRN Reason: Saline Flush Temazepam (Restoril) 15 mg PO HS PRN PRN Reason: Insomnia Last Admin: 05/14/19 01:12 Dose: 15 mg Warfarin Sodium (Coumadin) 3 mg PO 1700 [facility] Vital Signs & Weight: Vital Signs Temp Pulse Pulse Resp BP BP BP 05/15/19 16:08 97.9 F 111 H 21 H 141/81 H 05/15/19 15:46 111 H 141/81 H 145/69 H 05/15/19 14:38 100 20 05/15/19 11:20 97.6 F 103 H 18 101/53 L 05/15/19 07:20 97.7 F 88 16 149/65 H 05/15/19 07:02 80 20 Pulse Ox 11/18/19 16:08 96 05/15/19 15:46 05/15/19 14:38 05/15/19 11:20 100 05/15/19 07:20 96 05/15/19 07:02 Admit Weight 282 lb 13.649 oz Weight 281 lb 12.012 oz - Physical Exam General: alert & oriented x3 HEENT: mucus membranes moist Neck: supple neck Cardiac: regular rate and rhythm, no murmur Lungs: clear to auscultation Neuro: grossly intact Abdomen: active bowel sounds, soft, non-tender Extremities: no edema Skin: clear Musculoskeletal: no pain - Labs Result Diagrams: 05/14/19 04:20 05/13/19 04:33 Troponin/CKMB CK-MB (CK-2) 2.2 ng/mL (0-6.6) 05/08/19 20:06 Troponin I 0.153 ng/mL (< 0.028) H 05/08/19 20:06 - Telemetry Sinus rhythms and dysrhythmias: sinus rhythm - Assessment/Plan Assessment/Plan: 1. Afib RVR, back in sinus 2. DVT 3. ESRD on HD 4. Cellulitis with bacteremia PLAN: - Coumadin therapeutic now. - Refer to coumadin clinic for OINR's. - Continue BB at current dose. - May transfer to medical floor. - Will sign off. Please call with any questions. - Follow up in the office in 4-6 weeks.
[2019-05-15] MEDS: cefTRIAXone\\ROCEPHIN 1 GM in Sodium Chloride 0.9% 100 ML IVPB SCH (18:15)
[2019-05-15] MEDS: Warfarin Sodium 3 MG TAB PO SCH (18:15)
--- NOTE | 2019-05-15 18:52 | PRG ---
DATE OF SERVICE: 05/15/2019 SUBJECTIVE: The patient seen at bedside, says he feels not in distress. Complains of mild pain in the left groin area. Denies any chest pain. States shortness of breath is better. Denies nausea, vomiting, or diarrhea. However, complains of mild generalized weakness. OBJECTIVE: VITAL SIGNS: Temperature 97.9, pulse 101, respirations 20, oxygen saturation 98%, and blood pressure 141/81. GENERAL: The patient is lying in bed comfortably, not in distress. Conjunctivae normal. Oral mucosa moist. NECK: Supple. No JVD. No lymphadenopathy. CHEST: Normal vesicular breathing. HEART: Sounds normal. ABDOMEN: Soft. Left groin swelling noted. EXTREMITIES: Mild edema of feet positive. LABORATORY DATA: Blood glucose 156. INR 3.0. IMPRESSION: 1. Sepsis with beta-hemolytic Streptococcus bacteremia and cellulitis. Continue ceftriaxone. Will switch to oral medications upon discharge. 2. Paroxysmal atrial fibrillation with atrial fibrillation with rapid ventricular response. Continue beta patrick. Continue to monitor heart rate. Cardiology on board. 3. Bilateral lower extremity deep venous thrombosis. INR is therapeutic. Discontinue heparin. Continue Coumadin. 4. Diabetes mellitus. Currently stable. 5. Coronary artery disease status post myocardial infarction in the past. Currently denies any chest pain. 6. History of thrombocytopenia. 7. End-stage renal disease. Continue hemodialysis. 8. Hypertension. Continue to monitor blood pressure. 9. DVT/GI prophylaxis. PLAN: Discussed with the patient and nursing staff. Job ID: [id number]
[2019-05-16 04:34] LABS: #Eosinphils 0.1 thou/uL (0.0-0.7); #Lymphocytes 0.8 thou/uL (1.20-3.40); #Monocytes 0.5 thou/uL (0.11-0.59); #Neutrophils 5.6 thou/uL (1.40-6.50); %Basophils 0.1 % (0.0-1.0); %Eosinophils 1.2 % (0.0-10.0); %Lymphocytes 10.9 % (21.0-51.0); %Monocytes 7.5 % (0.0-10.0); %Neutrophils 80.3 % (42.0-75.0); Hemoglobin 7.4 g/dL (14.0-18.0); Mean Corpuscular HGB CONC 33.4 g/dL (32.0-36.0); Mean Corpuscular Hemoglobin 31.6 pg (27.0-31.0); Mean Corpuscular Volume 94.6 fL (78.0-98.0); Mean Platelet Volume 7.5 fL (7.4-10.4); Platelet Count 233 thou/uL (130-400); Red Blood Cell (RBC) Count 2.35 mill/uL (4.70-6.10)
[2019-05-16 04:42] LABS: INR-International Normal Ratio 3.4; PTT 60.2 SEC (22.9-36.1); Prothrombin Time 34.4 SEC (12.0-14.7)
[2019-05-16 04:59] LABS: Anion Gap 17 mmol/L (10-20); BUN (Urea Nitrogen) 21 mg/dL (8.4-25.7); Calc. Creatinine Clearance 22 mL/min (70-130); Calcium 7.2 mg/dL (7.8-10.44); Carbon Dioxide 25 mmol/L (23-31); Chloride 97 mmol/L (98-107); Estimated GFR-MDRD 12; Glucose 138 mg/dL (80-115); Potassium 4.4 mmol/L (3.5-5.1); Sodium 135 mmol/L (136-145)
[2019-05-16] MEDS: Acetaminophen 325 MG TAB PO PRN (05:08)
[2019-05-16] MEDS: Ketorolac Tromethamine 30 MG/ML VIAL IVP PRN ×3 (05:08→21:02)
[2019-05-16 09:32] LABS: Iron 66 ug/dL (65-175); Iron Binding Capacity, Total 173 mcg/dL (261-462)
[2019-05-16 09:59] LABS: Ferritin 1031.76 ng/mL (22-322)
[2019-05-16] MEDS: Artificial Tears 18 DROP/0.9 ML EA EYE SCH ×3 (13:45→21:03)
[2019-05-16] MEDS: Aspirin 81 mg Enteric Coated Tablet PO SCH (14:27)
[2019-05-16] MEDS: Metoprolol Tartrate 25 MG TAB PO SCH ×2 (14:27→22:05)
[2019-05-16] MEDS: Famotidine 20 MG TAB PO SCH (14:27)
[2019-05-16] MEDS: Polyethylene Glycol 3350 17 GM Packet PO SCH ×2 (14:28→22:05)
--- NOTE | 2019-05-16 14:52 | PRG ---
DATE OF SERVICE: 05/16/2019 SUBJECTIVE: The patient seen at bedside and complains of left groin area pain. Also complains of mild shortness of breath. Denies left flank pain. Denies any black color stool or bleeding per rectum. Did not have any bowel movement today. Denies any chest pain, headache, or dizziness, but complains of weakness and not feeling good. OBJECTIVE: VITAL SIGNS: Blood pressure 126/77, temperature 97.4, pulse 96, respirations 16, and oxygen saturation 95%. GENERAL: Morbidly obese male, lying in bed comfortably, not in distress. HEENT: Conjunctivae normal. Oral mucosa moist. CHEST: Decreased air entry in bilateral lung redman. HEART: Sounds normal. ABDOMEN: Mildly distended. Bowel sounds audible. Left groin swelling noted. EXTREMITIES: Minimal edema of feet noted. LABORATORY DATA: CBC unremarkable except for hemoglobin 7.4 and platelet 233. INR 3.4. BMP unremarkable except for creatinine 5.71. Blood glucose 151, iron 66, ferritin 1031.6, vitamin B12 of 828, and folate 3.20. Stool occult blood pending. IMPRESSION: 1. Sepsis with beta-hemolytic Streptococcus bacteremia and cellulitis. Continue ceftriaxone. 2. Leukocytosis, improved. We will switch to oral cephalexin on discharge. The patient still has pain and swelling in left groin area. Continue to monitor clinically. 3. Acute on chronic anemia, unclear cause. The patient has a drop in hemoglobin 7.4 today. Anemia profile suggestive of low folic acid level. We will depress it, pending stool for occult blood. If positive, we will get GI evaluation. The patient denies any active bleeding. 4. Paroxysmal atrial fibrillation with rapid ventricular response. Continue beta-blockers. Cardiology evaluation recommended. Recommended no further intervention per cardia. 5. Bilateral lower extremity deep vein thrombosis. INR is 3.4. Hold Coumadin today. The patient may need to start low-dose Coumadin tomorrow, possible 2 mg. 6. Coronary artery disease, status post myocardial infarction in the past. Currently denies any chest pain. 7. History of thrombocytopenia. 8. End-stage renal disease. Continue hemodialysis. 9. Hypertension. Continue monitoring blood pressure. 10. Deep venous thrombosis and gastrointestinal prophylaxis. PLAN: Discussed with the patient and nursing staff. Job ID: [id number]
[2019-05-16] MEDS: cefTRIAXone\\ROCEPHIN 1 GM in Sodium Chloride 0.9% 100 ML IVPB SCH (18:41)
[2019-05-17] MEDS: Ketorolac Tromethamine 30 MG/ML VIAL IVP PRN ×3 (03:01→20:08)
[2019-05-17 04:58] LABS: #Eosinphils 0.1 thou/uL (0.0-0.7); #Lymphocytes 1.2 thou/uL (1.20-3.40); #Monocytes 0.7 thou/uL (0.11-0.59); #Neutrophils 7.4 thou/uL (1.40-6.50); %Basophils 0.5 % (0.0-1.0); %Eosinophils 0.9 % (0.0-10.0); %Lymphocytes 12.5 % (21.0-51.0); %Monocytes 7.5 % (0.0-10.0); %Neutrophils 78.6 % (42.0-75.0); Hemoglobin 6.5 g/dL (14.0-18.0); Mean Corpuscular HGB CONC 33.3 g/dL (32.0-36.0); Mean Corpuscular Hemoglobin 32.1 pg (27.0-31.0); Mean Corpuscular Volume 96.3 fL (78.0-98.0); Mean Platelet Volume 7.5 fL (7.4-10.4); Platelet Count 270 thou/uL (130-400); RBC Distribution Width 13.4 % (11.5-14.5); Red Blood Cell (RBC) Count 2.01 mill/uL (4.70-6.10); White Blood Cell (WBC) Count 9.4 thou/uL (4.8-10.8)
[2019-05-17 05:02] LABS: INR-International Normal Ratio 3.3; Prothrombin Time 33.3 SEC (12.0-14.7)
[2019-05-17 05:22] LABS: Anion Gap 19 mmol/L (10-20); BUN (Urea Nitrogen) 27 mg/dL (8.4-25.7); Calc. Creatinine Clearance 18 mL/min (70-130); Calcium 6.9 mg/dL (7.8-10.44); Carbon Dioxide 25 mmol/L (23-31); Chloride 96 mmol/L (98-107); Estimated GFR-MDRD 9; Glucose 118 mg/dL (80-115); Potassium 4.1 mmol/L (3.5-5.1); Sodium 136 mmol/L (136-145)
[2019-05-17] MEDS ORDERED: Heparin 10,000 UNITS/ 10 ML VIAL ONE (11:22)
[2019-05-17] MEDS: Folic Acid 0.5 MG in Admixture Fee 1 EACH SC SCH (12:25)
[2019-05-17] MEDS: Artificial Tears 18 DROP/0.9 ML EA EYE SCH ×3 (12:25→20:09)
[2019-05-17] MEDS: Polyethylene Glycol 3350 17 GM Packet PO SCH ×2 (15:07→20:08)
[2019-05-17] MEDS: Metoprolol Tartrate 25 MG TAB PO SCH ×2 (15:07→20:09)
[2019-05-17] MEDS: HYDROcodone/Acetaminophen 10/325 mg Tablet PO PRN (15:41)
[2019-05-17] MEDS: Aspirin 81 mg Enteric Coated Tablet PO SCH (15:42)
[2019-05-17] MEDS: Famotidine 20 MG TAB PO SCH (15:42)
[2019-05-17] MEDS: cefTRIAXone\\ROCEPHIN 1 GM in Sodium Chloride 0.9% 100 ML IVPB SCH (17:26)
[2019-05-17] MEDS: Warfarin Sodium 3 MG TAB PO SCH (17:27)
[2019-05-17] MEDS: HumaLOG 300 UNITS/3 ML VIAL SC PRN (17:27)
--- NOTE | 2019-05-17 18:38 | PDOC.HOSPP ---
- Subjective Encounter Date: 05/17/19 Encounter Time: 15:00 Subjective: CC: groin pain Subjective: complains of continued pain in groin area where cellulitis was, denies fevers, chills, chest pain, shortness of breath. - Objective Vital Signs & Weight: Vital Signs (12 hours) Temp Pulse Pulse Resp BP BP Pulse Ox 05/17/19 15:50 97.6 F 109 H 18 161/71 H 97 05/17/19 13:27 92 20 94 L 05/17/19 12:19 97.5 F L 104 H 16 139/61 96 05/17/19 10:50 97.4 F L 99 18 131/50 L 05/17/19 10:30 97.4 F L 98 18 142/58 H 05/17/19 10:15 97.4 F L 106 H 18 107/48 L 05/17/19 10:10 97.4 F L 107 H 18 107/48 L 05/17/19 09:45 97.6 F 102 H 18 120/46 L 05/17/19 09:30 97.6 F 102 H 22 H 111/45 L 05/17/19 08:10 95 05/17/19 07:11 98 20 95 05/17/19 07:10 98.5 F 98 22 H 161/70 H 95 Weight Admit Weight 282 lb 13.649 oz Weight 270 lb 2 oz I&O: 05/16/19 05/17/19 05/18/19 06:59 06:59 06:59 Intake Total 480 0 900 Output Total 0 3250 Balance 480 0 -2350 Result Diagrams: 05/18/19 04:14 05/17/19 03:37 Additional Labs: Accuchecks 05/17/19 05/17/19 05/17/19 16:28 12:22 05:32 POC Glucose 177 H 88 134 H 05/16/19 20:23 POC Glucose 142 H Hospitalist ROS - Medication Medications: Active Medications Generic Name Dose Route Start Last Admin Trade Name Freq PRN Reason Stop Dose Admin Acetaminophen 650 mg 05/08/19 15:12 05/16/19 05:08 Tylenol PO 650 mg Q4H PRN Administration Headache/Fever/Mild Pain (1-3) Hydrocodone Bitart/Acetaminophen 1 tab 05/13/19 21:46 05/17/19 15:41 [place] 10/325 PO 1 tab Q8H PRN Administration Moderate Pain (4-6) Al Hydroxide/Mg Hydroxide 30 ml 05/14/19 23:34 05/15/19 00:46 Maalox PO 30 ml Q6H PRN Administration GI Cramping Albuterol/Ipratropium 3 ml 05/09/19 14:30 05/17/19 13:27 Duoneb NEB 3 ml [id number] JOSE LUIS Administration Artificial Tears 0 drop 05/09/19 15:00 05/17/19 15:42 Tears Naturale EA EYE 20 drop TID JOSE LUIS Administration Aspirin 81 mg 05/10/19 09:00 05/17/19 15:42 Ecotrin PO 81 mg DAILY JOSE LUIS Administration Bisacodyl 10 mg 05/14/19 23:34 05/15/19 00:47 Dulcolax PO 10 mg DAILYPRN PRN Administration Constipation Famotidine 20 mg 05/10/19 09:00 05/17/19 15:42 Pepcid PO 20 mg DAILY JOSE LUIS Administration Ceftriaxone Sodium 1 gm/ 100 mls @ 200 mls/hr 05/10/19 18:30 05/17/19 17:26 Sodium Chloride IVPB 100 mls Q24HR JOSE LUIS Administration Folic Acid 0.5 mg/ 0.1 mls @ 0 mls/hr 05/17/19 09:00 05/17/19 12:25 Miscellaneous Medication SC 0.1 mls DAILY JOSE LUIS Administration Insulin Human Lispro 0 units 05/08/19 15:22 05/17/19 17:27 Humalog SC 2 unit .MILD SLIDING SCALE PRN Administration Mild Correctional Scale Ketorolac Tromethamine 15 mg 05/15/19 06:45 05/17/19 12:23 Toradol IVP 05/20/19 06:46 15 mg Q6H PRN Administration Pain Metoprolol Tartrate 25 mg 05/10/19 21:00 05/17/19 15:07 Lopressor PO Not Given BID JOSE LUIS Polyethylene Glycol 17 gm 05/15/19 09:00 05/17/19 15:07 Miralax PO Not Given BID JOSE LUIS Temazepam 15 mg 05/12/19 01:23 05/14/19 01:12 Restoril PO 15 mg HS PRN Administration Insomnia Warfarin Sodium 3 mg 05/15/19 17:00 05/17/19 17:27 Coumadin PO 3 mg 1700 JOSE LUIS Administration - Exam General Appearance: NAD, awake alert Eye: PERRL, anicteric sclera ENT: normocephalic atraumatic, moist mucosa Neck: supple, no JVD Heart: RRR, no murmur, no gallops Respiratory: CTAB, no wheezes, no rales, no ronchi Gastrointestinal: soft, non-tender, non-distended, normal bowel sounds. negative: tender to palpation (L groin inspected where patinet reports pain, no tenderness/edema/erythema/induration) Gastrointestinal - other findings: L groin inspected where patinet reports pain , no tenderness/edema Extremities: no cyanosis, no clubbing, no edema Skin: no lesions, no rashes Neurological: cranial nerve grossly intact, normal sensation to touch, no weakness, no focal deficits Musculoskeletal: normal tone, normal strength Psychiatric: normal affect, normal behavior, A&O x 3 Hosp A/P - Plan Pateint is a 68 year old male being treated for: # sepsis due to beta hemolytic streptococcus species w/ cellulitis - deescalate to ancef, keflex on d/c # leukocytosis - improved, due to sepsis # acute on chronic anemia - s/p 2u leukoreduced pRBC today, monitor for improvement, consult GI in AM, no bleeding clinically # paroxysmal atrial fibrillation - appreciate cardiology assistance, continue beta blockade # LLE DVT - INR 3.0 today, continue to hold coumadin # coagulopathy - supratherapeutic INR, possible due to coumadin and low vitamin K in hospital, hold coumadin, trend INR # CAD, previous RI - continue current therapy, appreciate cardiology evaluation # history of thrombocytopenia - trend CBC, monitor for bleeding # ESRD - continue HD per nephrology # DVT/GI ppx Disposition - anticipate d/c to rehab/SNF, anemia may provide an impediment to discharge
[2019-05-18] MEDS: HYDROcodone/Acetaminophen 10/325 mg Tablet PO PRN ×2 (00:09→08:37)
[2019-05-18] MEDS: Ketorolac Tromethamine 30 MG/ML VIAL IVP PRN ×2 (02:09→09:47)
[2019-05-18 04:45] LABS: Hemoglobin 8.9 g/dL (14.0-18.0); Platelet Count 284 thou/uL (130-400)
[2019-05-18 04:51] LABS: Prothrombin Time 30.9 SEC (12.0-14.7)
[2019-05-18] MEDS: Artificial Tears 18 DROP/0.9 ML EA EYE SCH ×2 (08:33→16:56)
[2019-05-18] MEDS: Folic Acid 0.5 MG in Admixture Fee 1 EACH SC SCH (08:34)
[2019-05-18] MEDS: Aspirin 81 mg Enteric Coated Tablet PO SCH (08:34)
[2019-05-18] MEDS: Metoprolol Tartrate 25 MG TAB PO SCH ×2 (08:34→20:49)
[2019-05-18] MEDS: Famotidine 20 MG TAB PO SCH (08:34)
[2019-05-18] MEDS: Polyethylene Glycol 3350 17 GM Packet PO SCH ×2 (08:35→20:49)
--- NOTE | 2019-05-18 10:04 | PDOC.HOSPP ---
- Subjective Encounter Date: 05/18/19 Encounter Time: 08:00 Subjective: Chief complaint: groin pain and rash Subjective: patient in bed, loopy and asking random questions (about pets, etc) . Denies bleeding, no chest pain or shortness of breath. updated family at bedside. They report patient is always like this when he has to go on pain medications. discussed with nursing, patient has been getting norco 10s as often as possible as he is complaining on every evaluation about residual rash pain - Objective Vital Signs & Weight: Vital Signs (12 hours) Temp Pulse Resp BP Pulse Ox 05/18/19 07:40 97.5 F L 93 18 151/61 H 97 05/18/19 07:08 91 20 98 05/18/19 03:40 97.2 F L 90 16 138/62 96 05/17/19 22:18 90 20 94 L Weight Admit Weight 282 lb 13.649 oz Weight 263 lb 5 oz I&O: 05/17/19 05/18/19 05/19/19 06:59 06:59 06:59 Intake Total 0 1860 Output Total 0 3250 Balance 0 -1390 Result Diagrams: 05/18/19 04:14 05/18/19 10:50 Additional Labs: Accuchecks 05/18/19 05/17/19 05/17/19 05:47 20:32 16:28 POC Glucose 135 H 155 H 177 H 05/17/19 12:22 POC Glucose 88 Hospitalist ROS - Medication Medications: Active Medications Generic Name Dose Route Start Last Admin Trade Name Freq PRN Reason Stop Dose Admin Acetaminophen 650 mg 05/08/19 15:12 05/16/19 05:08 Tylenol PO 650 mg Q4H PRN Administration Headache/Fever/Mild Pain (1-3) Hydrocodone Bitart/Acetaminophen 1 tab 05/13/19 21:46 05/18/19 08:37 [place] 10/325 PO 1 tab Q8H PRN Administration Moderate Pain (4-6) Al Hydroxide/Mg Hydroxide 30 ml 05/14/19 23:34 05/15/19 00:46 Maalox PO 30 ml Q6H PRN Administration GI Cramping Albuterol/Ipratropium 3 ml 05/09/19 14:30 05/18/19 07:08 Duoneb NEB 3 ml [id number] JOSE LUIS Administration Artificial Tears 0 drop 05/09/19 15:00 05/18/19 08:33 Tears Naturale EA EYE 20 drop TID JOSE LUIS Administration Aspirin 81 mg 05/10/19 09:00 05/18/19 08:34 Ecotrin PO 81 mg DAILY JOSE LUIS Administration Bisacodyl 10 mg 05/14/19 23:34 05/15/19 00:47 Dulcolax PO 10 mg DAILYPRN PRN Administration Constipation Famotidine 20 mg 05/10/19 09:00 05/18/19 08:34 Pepcid PO 20 mg DAILY JOSE LUIS Administration Folic Acid 0.5 mg/ 0.1 mls @ 0 mls/hr 05/17/19 09:00 05/18/19 08:34 Miscellaneous Medication SC 0.1 mls DAILY JOSE LUIS Administration Insulin Human Lispro 0 units 05/08/19 15:22 05/17/19 17:27 Humalog SC 2 unit .MILD SLIDING SCALE PRN Administration Mild Correctional Scale Ketorolac Tromethamine 15 mg 05/15/19 06:45 05/18/19 09:47 Toradol IVP 05/20/19 06:46 15 mg Q6H PRN Administration Pain Metoprolol Tartrate 25 mg 05/10/19 21:00 05/18/19 08:34 Lopressor PO 25 mg BID JOSE LUIS Administration Polyethylene Glycol 17 gm 05/15/19 09:00 05/18/19 08:35 Miralax PO 17 gm BID JOSE LUIS Administration Temazepam 15 mg 05/12/19 01:23 05/14/19 01:12 Restoril PO 15 mg HS PRN Administration Insomnia Warfarin Sodium 3 mg 05/15/19 17:00 05/17/19 17:27 Coumadin PO 3 mg 1700 JOSE LUIS Administration - Exam General Appearance: NAD General - other findings: confused Eye: PERRL, anicteric sclera ENT: normocephalic atraumatic, moist mucosa Neck: supple, symmetric, no JVD Heart: RRR, no murmur, no gallops Respiratory: CTAB, no wheezes, no rales Gastrointestinal: soft, non-tender, non-distended, normal bowel sounds Extremities: no cyanosis, no clubbing, no edema Skin: no lesions, no rashes Neurological: no focal deficits Neurological - other findings: altered mental satus, no focal deficits Musculoskeletal: normal tone, normal strength Psychiatric - other findings: altered mental status Hosp A/P - Plan Pateint is a 68 year old male being treated for: # sepsis due to beta hemolytic streptococcus species w/ cellulitis - deescalate to luis coello on d/c # leukocytosis - improved, due to sepsis # acute on chronic anemia - s/p 2u leukoreduced pRBC on 17 of may, monitor for improvement, no bleeding clinically - appreciate GI evaluation, continue to trend INR off of coumadin and EGD/ colonoscopy when under 1.5 # altered mental status secondary to toxic encephalopathy/medication overuse - worsening, likely due to pain medications, lower to norco 10 q8h PRN, per family this is not the first time this has happened # paroxysmal atrial fibrillation - appreciate cardiology assistance, continue beta blockade # LLE DVT - appreciate pharmacy assistance with coumadin dosing # coagulopathy - supratherapeutic INR, possible due to coumadin and low vitamin K in hospital, hold coumadin, trend INR # CAD, previous [place] - continue current therapy, appreciate cardiology evaluation # history of thrombocytopenia - trend CBC, monitor for bleeding # ESRD - continue HD per nephrology # DVT/GI ppx Disposition - anticipate d/c to rehab/SNF once GI evalutaion complete and anemia stable
[2019-05-18 11:12] LABS: Anion Gap 16 mmol/L (10-20); BUN (Urea Nitrogen) 17 mg/dL (8.4-25.7); Calc. Creatinine Clearance 21 mL/min (70-130); Calcium 7.2 mg/dL (7.8-10.44); Carbon Dioxide 25 mmol/L (23-31); Chloride 100 mmol/L (98-107); Estimated GFR-MDRD 12; Glucose 120 mg/dL (80-115); Potassium 4.5 mmol/L (3.5-5.1); Sodium 136 mmol/L (136-145)
[2019-05-18] MEDS: HYDROcodone/Acetaminophen 5/325 mg Tablet PO PRN (14:54)
[2019-05-18] MEDS: CEFAZOLIN 2 GM in Premix Bag 1 BAG IVPB SCH ×3 (15:32→23:10)
[2019-05-18] MEDS: HumaLOG 300 UNITS/3 ML VIAL SC PRN (17:18)
--- NOTE | 2019-05-18 18:01 | CON ---
DATE OF CONSULTATION: 05/18/2019 REQUESTING PHYSICIAN: Chin Graves MD REASON FOR CONSULTATION: Anemia. HISTORY OF PRESENT ILLNESS: Mason Alexander is a 68-year-old man. He was previously seen by my GI colleague, Dr. Minesh Borjas for screening colonoscopy back in 2009, which was a normal exam. He has a history significant for end-stage renal disease, on dialysis; as well as prior myocardial infarction and ongoing tobacco abuse. He was admitted to the hospital 10 days ago after presenting with weakness and a fall, being found to be septic, initially treated for pneumonia, but being found to have cellulitis of the left groin with streptococcal bacteremia. He has been receiving IV antibiotics. During his hospitalization, he was also found to be in atrial fibrillation with RVR. He was also found to have what appears to be chronic bilateral femoral vein DVTs, so he was started on Coumadin. As his INR increased over the past week, he developed acute decline in hemoglobin level. Looking back, on the , hemoglobin was 12.3 with INR 1.2. On , his hemoglobin was down to 10 with INR 1.6. By the , hemoglobin had declined to 7.4 with INR 3.4, and then yesterday, hemoglobin declined further to 6.5 with INR 3.3. Coumadin has now been held. He received 2 units of RBC transfusion. Hemoglobin is back up to 8.9 with INR 3.0. Notably through all of this, the patient has not had any apparent melena or hematochezia, no hematemesis, no overt blood loss from anywhere. He states that he has kind of a poor appetite, but otherwise he denies any abdominal pain, nausea, vomiting, melena, or hematochezia. FOBT was checked and was actually negative. Folic acid level is low at 3.2 with unrevealing iron studies and normal B12. We are consulted due to the development of acute anemia. REVIEW OF SYSTEMS: Full review of systems including constitutional, head, eyes, ears, nose, throat, GI, , cardiovascular, respiratory, musculoskeletal, neurologic systems is negative except as noted in the HPI. PAST MEDICAL HISTORY: End-stage renal disease, on dialysis; diabetes; myocardial infarction; degenerative joint disease; hypertension; cervical spine surgery; and tobacco abuse. ALLERGIES: CODEINE. OUTPATIENT MEDICATIONS: 1. [place]. 2. Metoprolol. 3. Levemir. INPATIENT MEDICATIONS: 1. Tylenol p.r.n. 2. [place]. 3. Maalox. 4. Aspirin 81 mg daily. 5. Dulcolax p.r.n. 6. IV cefazolin. 7. Pepcid 20 mg p.o. daily. 8. Folic acid 500 mcg daily. 9. Insulin sliding scale. 10. Metoprolol. 11. MiraLAX 17 g b.i.d. 12. Warfarin, discontinued yesterday. FAMILY HISTORY: Noncontributory. SOCIAL HISTORY: He does smoke. PHYSICAL EXAMINATION: VITAL SIGNS: Temperature 97.0, pulse 89, blood pressure 131/72, and 92% oxygen saturation on room air. GENERAL: In no acute distress. HEART: Regular rate and rhythm. LUNGS: Clear to auscultation bilaterally. ABDOMEN: Obese, but nondistended. Bowel sounds present. Soft. Mild tenderness to palpation in the left lower quadrant, but no guarding or rebound tenderness. EXTREMITIES: Trace pretibial edema bilaterally. SKIN: Cellulitis of the left thigh. No other rashes were palpable. EYES: No scleral icterus. Extraocular movements intact. He is blind in the right eye. ENT: Mucous membranes moist. No oral lesions. LYMPH: No submandibular or supraclavicular lymphadenopathy. THYROID: Nontender to palpation. LABORATORY STUDIES: Hemoglobin 8.9. INR 3.0. Platelets 284, WBC 9.4. Sodium 136, potassium 4.5, BUN 17, creatinine 5.74, glucose 120. Folic acid 3.2. Vitamin B12 was 888, ferritin 1031, iron 66, TIBC 173. CRP 15.57. LFTs all normal with total bilirubin 0.5, alkaline phosphatase 72, AST 27, ALT 11, albumin 3.1. FOBT negative. ASSESSMENT AND PLAN: 1. Acute anemia. 2. Supratherapeutic INR. 3. Folic acid deficiency. The patient has developed an acute anemia with 6 point decline in hemoglobin over the course of a week, in the context of starting anticoagulation with warfarin. The association of acute anemia with the onset of anticoagulation is certainly concerning for blood loss anemia. On the other hand, the patient had no reported overt bleeding from anywhere and in fact, FOBT was negative. Occult gastrointestinal bleeding lesion does remain a possibility. It would be reasonable to perform EGD and colonoscopy for further investigation. We would need to wait until the INR is down at the level of 1.5 or less before considering this procedure. I understand warfarin has been held, but reversal agents could be used if not contraindicated from a cardiac or vascular perspective. In the meantime, consider the possibility of intraabdominal or retroperitoneal bleeding, though the patient really is not giving any other symptoms concerning for this. Continue diet for now. We will follow along and wait for INR to drift down to appropriate levels. Can plan for EGD and colonoscopy at that time. Job ID: [id number]
[2019-05-18] MEDS: Artificial Tear Sol 15 ML BOT EA EYE SCH (20:49)
[2019-05-19] MEDS: CEFAZOLIN 2 GM in Premix Bag 1 BAG IVPB SCH (00:14)
[2019-05-19] MEDS: HYDROcodone/Acetaminophen 5/325 mg Tablet PO PRN (02:48)
[2019-05-19] MEDS ORDERED: CEFAZOLIN 2 GM in Premix Bag 1 BAG IVPB SCH (08:00)
[2019-05-19] MEDS: Artificial Tear Sol 15 ML BOT EA EYE SCH ×3 (09:10→21:11)
[2019-05-19] MEDS: Famotidine 20 MG TAB PO SCH (09:10)
[2019-05-19] MEDS: Polyethylene Glycol 3350 17 GM Packet PO SCH ×2 (09:11→21:12)
[2019-05-19] MEDS: Metoprolol Tartrate 25 MG TAB PO SCH ×2 (09:11→21:11)
[2019-05-19 09:45] LABS: #Eosinphils 0.4 thou/uL (0.0-0.7); #Monocytes 0.5 thou/uL (0.11-0.59); #Neutrophils 7.2 thou/uL (1.40-6.50); %Basophils 0.3 % (0.0-1.0); %Eosinophils 4.1 % (0.0-10.0); %Lymphocytes 10.6 % (21.0-51.0); %Monocytes 5.8 % (0.0-10.0); %Neutrophils 79.3 % (42.0-75.0); Hemoglobin 8.7 g/dL (14.0-18.0); Mean Corpuscular HGB CONC 32.6 g/dL (32.0-36.0); Mean Corpuscular Hemoglobin 30.9 pg (27.0-31.0); Mean Corpuscular Volume 94.7 fL (78.0-98.0); Mean Platelet Volume 6.8 fL (7.4-10.4); Platelet Count 287 thou/uL (130-400); RBC Distribution Width 14.7 % (11.5-14.5); Red Blood Cell (RBC) Count 2.81 mill/uL (4.70-6.10); White Blood Cell (WBC) Count 9.1 thou/uL (4.8-10.8)
[2019-05-19 09:55] LABS: INR-International Normal Ratio 2.5; Prothrombin Time 26.5 SEC (12.0-14.7)
[2019-05-19 10:01] LABS: Anion Gap 10 mmol/L (10-20); BUN (Urea Nitrogen) 21 mg/dL (8.4-25.7); Calc. Creatinine Clearance 21 mL/min (70-130); Calcium 7.2 mg/dL (7.8-10.44); Carbon Dioxide 31 mmol/L (23-31); Chloride 100 mmol/L (98-107); Estimated GFR-MDRD 12; Glucose 119 mg/dL (80-115); Potassium 3.7 mmol/L (3.5-5.1); Sodium 137 mmol/L (136-145)
--- NOTE | 2019-05-19 12:03 | PRG ---
DATE OF SERVICE: 05/19/2019 SUBJECTIVE: Mr. Alexander is doing pretty well. He has good appetite, tolerating his diet. He has had no bowel movement since yesterday. Hemoglobin is stable. INR is down to 2.5. He is currently getting dialysis. OBJECTIVE: VITAL SIGNS: Temperature 98.1, pulse 85, blood pressure 164/75, and 95% oxygen saturation on room air. GENERAL: In no acute distress. HEART: Regular rate and rhythm. LUNGS: Clear to auscultation bilaterally. ABDOMEN: Obese, but nondistended. Bowel sounds present. Nontender to palpation. EXTREMITIES: No peripheral edema. LABORATORY STUDIES: Hemoglobin stable at 8.7, WBC 9.1, platelets 287. INR down to 2.5. Sodium 137, potassium 3.7, BUN 21, creatinine 5.80. ASSESSMENT AND PLAN: Anemia, acute over the past week in the context of new anticoagulation with warfarin, without any evidence of overt bleeding. We will stick with the plan to perform EGD/colonoscopy later this admission, once his INR is down to less than 1.5. For now, continue with his normal diet. Please call anytime with questions or concerns. Job ID: [id number]
--- NOTE | 2019-05-19 14:24 | PDOC.HOSPP ---
- Subjective Encounter Date: 05/19/19 Encounter Time: 14:23 Subjective: Chief complaint: groin pain Subjective: seen in HD, complains of groin pain stable from yesterday, AOx2-3, no acute distress. Pending endoscopy once inr 1.5, GI following with us. No melena or red blood per mouth or anus noted by nursing or patient. - Objective Vital Signs & Weight: Vital Signs (12 hours) Temp Pulse Resp BP Pulse Ox 05/19/19 04:00 98.1 F 85 18 164/75 H 95 Weight Admit Weight 282 lb 13.649 oz Weight 263 lb 5 oz I&O: 05/18/19 05/19/19 05/20/19 06:59 06:59 06:59 Intake Total 1860 400 Output Total 3250 360 Balance -1390 40 Result Diagrams: 05/19/19 09:00 05/19/19 09:00 Additional Labs: Accuchecks 05/19/19 05/18/19 05/18/19 04:05 19:31 16:16 POC Glucose 149 H 147 H 176 H Hospitalist ROS - Medication Medications: Active Medications Generic Name Dose Route Start Last Admin Trade Name Freq PRN Reason Stop Dose Admin Acetaminophen 650 mg 05/08/19 15:12 05/16/19 05:08 Tylenol PO 650 mg Q4H PRN Administration Headache/Fever/Mild Pain (1-3) Al Hydroxide/Mg Hydroxide 30 ml 05/14/19 23:34 05/15/19 00:46 Maalox PO 30 ml Q6H PRN Administration GI Cramping Artificial Tears 0 drop 05/18/19 21:00 05/19/19 09:10 Liquitears 15ml Bottle EA EYE Not Given TID JOSE LUIS Aspirin 81 mg 05/10/19 09:00 05/18/19 08:34 Ecotrin PO 81 mg DAILY JOSE LUIS Administration Bisacodyl 10 mg 05/14/19 23:34 05/15/19 00:47 Dulcolax PO 10 mg DAILYPRN PRN Administration Constipation Famotidine 20 mg 05/10/19 09:00 05/19/19 09:10 Pepcid PO Not Given DAILY JOSE LUIS Folic Acid 0.5 mg/ 0.1 mls @ 0 mls/hr 05/17/19 09:00 05/18/19 08:34 Miscellaneous Medication SC 0.1 mls DAILY JOSE LUIS Administration Insulin Human Lispro 0 units 05/08/19 15:22 05/18/19 17:18 Humalog SC 2 unit .MILD SLIDING SCALE PRN Administration Mild Correctional Scale Metoprolol Tartrate 25 mg 05/10/19 21:00 05/19/19 09:11 Lopressor PO Not Given BID JOSE LUIS Polyethylene Glycol 17 gm 05/15/19 09:00 05/19/19 09:11 Miralax PO Not Given BID JOSE LUIS - Exam General Appearance: NAD, awake alert Eye: PERRL, anicteric sclera ENT: normocephalic atraumatic, moist mucosa Neck: supple, symmetric, no JVD Heart: RRR, no murmur, no gallops, no rubs Respiratory: CTAB, no wheezes, no rales, no ronchi Gastrointestinal: soft, non-tender, non-distended, normal bowel sounds Extremities: no cyanosis, no clubbing, no edema Skin: no lesions, no rashes Neurological: cranial nerve grossly intact, normal sensation to touch, no weakness, no focal deficits Musculoskeletal: normal tone, normal strength Psychiatric - other findings: remains a bit confused Hosp A/P - Plan Pateint is a 68 year old male being treated for: # sepsis due to beta hemolytic streptococcus species w/ cellulitis - deescalate to keflex # leukocytosis - improved, due to sepsis # acute on chronic anemia - s/p 2u leukoreduced pRBC on 17 of may, monitor for improvement, no bleeding clinically - appreciate GI evaluation, continue to trend INR off of coumadin and EGD/ colonoscopy when under 1.5 or per GI recommendations # altered mental status secondary to toxic encephalopathy/medication overuse - stable or slightly better today, will reduce norco further from q6 to q8 hours prn, will send for liver enzymes, phosphorus and ammonia tomorrow, no known new infections # paroxysmal atrial fibrillation - appreciate cardiology assistance, continue beta blockade # LLE DVT - appreciate pharmacy assistance with coumadin dosing # coagulopathy - supratherapeutic INR, possible due to coumadin and low vitamin K in hospital, hold coumadin, trend INR # CAD, previous [place] - continue current therapy, appreciate cardiology evaluation # history of thrombocytopenia - trend CBC, monitor for bleeding # ESRD - continue HD per nephrology # DVT/GI ppx Disposition - anticipate d/c to rehab/SNF once GI evalutaion complete and anemia stable
[2019-05-19] MEDS: Cephalexin 250 MG CAP PO SCH ×2 (17:49→21:11)
[2019-05-19] MEDS: Folic Acid 0.5 MG in Admixture Fee 1 EACH SC SCH (18:22)
[2019-05-20] MEDS: Acetaminophen 325 MG TAB PO PRN ×3 (01:23→20:14)
[2019-05-20 04:35] LABS: Hemoglobin 9.5 g/dL (14.0-18.0); Platelet Count 297 thou/uL (130-400)
[2019-05-20 04:38] LABS: #Eosinphils 0.4 thou/uL (0.0-0.7); #Lymphocytes 1.2 thou/uL (1.20-3.40); #Monocytes 0.8 thou/uL (0.11-0.59); #Neutrophils 6.6 thou/uL (1.40-6.50); %Basophils 0.1 % (0.0-1.0); %Eosinophils 4.4 % (0.0-10.0); %Lymphocytes 13.6 % (21.0-51.0); %Monocytes 8.4 % (0.0-10.0); %Neutrophils 73.6 % (42.0-75.0); Hemoglobin 9.5 g/dL (14.0-18.0); Mean Corpuscular HGB CONC 32.2 g/dL (32.0-36.0); Mean Corpuscular Hemoglobin 30.8 pg (27.0-31.0); Mean Corpuscular Volume 95.4 fL (78.0-98.0); Mean Platelet Volume 6.6 fL (7.4-10.4); Platelet Count 301 thou/uL (130-400); RBC Distribution Width 14.8 % (11.5-14.5); Red Blood Cell (RBC) Count 3.09 mill/uL (4.70-6.10)
[2019-05-20 04:54] LABS: INR-International Normal Ratio 2.2; Prothrombin Time 24.1 SEC (12.0-14.7)
[2019-05-20 04:55] LABS: ALT (SGPT) 12 U/L (8-55); AST (SGOT) 57 U/L (5-34); Albumin 3.1 g/dL (3.4-4.8); Alkaline Phosphatase 66 U/L (40-110); Bilirubin, Direct 0.4 mg/dL (0.1-0.3); Bilirubin, Total 0.8 mg/dL (0.2-1.2); Protein, Total 8.6 g/dL (5.8-8.1)
[2019-05-20 04:57] LABS: Anion Gap 13 mmol/L (10-20); BUN (Urea Nitrogen) 16 mg/dL (8.4-25.7); Calc. Creatinine Clearance 24 mL/min (70-130); Calcium 7.5 mg/dL (7.8-10.44); Carbon Dioxide 27 mmol/L (23-31); Chloride 98 mmol/L (98-107); Estimated GFR-MDRD 14; Glucose 141 mg/dL (80-115); Potassium 4.2 mmol/L (3.5-5.1); Sodium 134 mmol/L (136-145)
[2019-05-20] MEDS: Cephalexin 250 MG CAP PO SCH ×4 (08:41→20:14)
[2019-05-20] MEDS: Famotidine 20 MG TAB PO SCH (08:41)
[2019-05-20] MEDS: Metoprolol Tartrate 25 MG TAB PO SCH ×2 (08:41→20:14)
[2019-05-20] MEDS: Folic Acid 0.5 MG in Admixture Fee 1 EACH SC SCH (08:42)
[2019-05-20] MEDS: Polyethylene Glycol 3350 17 GM Packet PO SCH ×2 (08:42→20:14)
[2019-05-20] MEDS: Artificial Tear Sol 15 ML BOT EA EYE SCH ×3 (08:43→20:13)
[2019-05-20] MEDS ORDERED: Lorazepam 2 MG/ML VIAL SLOW IVP PRN (10:10)
[2019-05-20] MEDS ORDERED: Lorazepam 1 MG TAB PO PRN (10:26)
[2019-05-20] MEDS: HYDROcodone/Acetaminophen 5/325 mg Tablet PO PRN ×2 (10:32→15:33)
--- NOTE | 2019-05-20 11:35 | CT ---
Exam: CT brain PROVIDED CLINICAL HISTORY: Altered mental status COMPARISON: 07/20/2018 FINDINGS: The ventricular system is normal in size and morphology. No evidence for intracranial hemorrhage or mass effect. There is a somewhat masslike area of density alteration within the right superior-lateral orbital fat with associated calcification, that may reflect a lacrimal gland mass. T he extracranial soft tissues and osseous structures appear otherwise unremarkable. IMPRESSION: 1. No evidence for intracranial hemorrhage or mass effect. 2. Right orbital mass, incompletely characterized. Correlation with nonemergent orbital MRI is recomm ended.
--- NOTE | 2019-05-20 19:09 | PRG ---
DATE OF SERVICE: 05/20/2019 SUBJECTIVE: This is a 68-year-old male with chronic kidney disease, recent GI bleeding. He has been on warfarin and this has been discontinued. He has had a PT and INR today. The INR is still high at 2.2. The plan is to have an EGD done if the INR drops to around less than 2 or 1.5. The patient has had no stool. Denies abdominal pain, nausea, or vomiting. Apparently, he was confused or combative recently and had a CT scan of the head. This was done today. The CAT scan showed a right orbital mass. There is no intracranial bleed or any mass effect. At the present time, he is awake and comfortable, alert, and communicative. He denies any chest pain, any nausea, vomiting, or abdominal pain. He has had no stool today. LABORATORY DATA: From today, the blood count remains around 9.5 hemoglobin, hematocrit 29.4, WBC 9,000. PT is high at 24.1, INR is 2.2. PHYSICAL EXAMINATION: GENERAL: He is obese, appears comfortable. VITAL SIGNS: Afebrile, pulse is 83, blood pressure 149/82. CARDIOVASCULAR: Within normal limits. LUNGS: Within normal limits. ABDOMEN: Soft. No organomegaly. No tenderness. No masses. PLAN: Repeat PT and INR, and hopefully an EGD can be performed today if it is less than 2. Job ID: [id number]
--- NOTE | 2019-05-20 22:27 | PDOC.HOSPP ---
- Subjective Encounter Date: 05/20/19 Encounter Time: 14:00 Subjective: Patient still on the confused side, per nursing was agitated earlier. No chest pain or shortness of breath. Wants more pain medication for L groin pain which is stable. - CT head ordered for persistent confusion, orbital mass observed, can not get contrast MRI due to ESRD and per radiology noncontrast MRI would not provide much information. Attempted to contact Dr Carpenter of ENT but was unsuccessful. - Objective Vital Signs & Weight: Vital Signs (12 hours) Temp Pulse Resp BP Pulse Ox 05/20/19 20:00 98.3 F 83 19 128/65 96 Weight Admit Weight 282 lb 13.649 oz Weight 253 lb 9 oz I&O: 05/19/19 05/20/19 05/21/19 06:59 06:59 06:59 Intake Total 400 240 Output Total 360 3000 Balance 40 -8700 Result Diagrams: 05/20/19 04:17 05/20/19 04:17 Additional Labs: Accuchecks 05/20/19 05/20/19 05/20/19 19:51 16:04 04:32 POC Glucose 189 H 144 H 144 H 05/19/19 19:47 POC Glucose 131 H Hospitalist ROS - Medication Medications: Active Medications Generic Name Dose Route Start Last Admin Trade Name Freq PRN Reason Stop Dose Admin Acetaminophen 650 mg 05/08/19 15:12 05/20/19 20:14 Tylenol PO 650 mg Q4H PRN Administration Headache/Fever/Mild Pain (1-3) Hydrocodone Bitart/Acetaminophen 1 tab 05/19/19 14:22 05/20/19 15:33 [place] 5/325 PO 1 tab Q8H PRN Administration Severe Pain (7-10) Al Hydroxide/Mg Hydroxide 30 ml 05/14/19 23:34 05/15/19 00:46 Maalox PO 30 ml Q6H PRN Administration GI Cramping Artificial Tears 0 drop 05/18/19 21:00 05/20/19 20:13 Liquitears 15ml Bottle EA EYE 1 drop TID JOSE LUIS Administration Aspirin 81 mg 05/10/19 09:00 05/18/19 08:34 Ecotrin PO 81 mg DAILY JOSE LUIS Administration Bisacodyl 10 mg 05/14/19 23:34 05/15/19 00:47 Dulcolax PO 10 mg DAILYPRN PRN Administration Constipation Cephalexin 250 mg 05/19/19 17:00 05/20/19 20:14 Keflex PO 250 mg QID JOSE LUIS Administration Famotidine 20 mg 05/10/19 09:00 05/20/19 08:41 Pepcid PO 20 mg DAILY JOSE LUIS Administration Folic Acid 0.5 mg/ 0.1 mls @ 0 mls/hr 05/17/19 09:00 05/20/19 08:42 Miscellaneous Medication SC 0.1 mls DAILY JOSE LUIS Administration Insulin Human Lispro 0 units 05/08/19 15:22 05/18/19 17:18 Humalog SC 2 unit .MILD SLIDING SCALE PRN Administration Mild Correctional Scale Metoprolol Tartrate 25 mg 05/10/19 21:00 05/20/19 20:14 Lopressor PO 25 mg BID JOSE LUIS Administration Polyethylene Glycol 17 gm 05/15/19 09:00 05/20/19 20:14 Miralax PO Not Given BID JOSE LUIS - Exam General Appearance: NAD, awake alert Eye: PERRL, anicteric sclera ENT: normocephalic atraumatic, no oropharyngeal lesions, moist mucosa Neck: supple, symmetric, no JVD, no thyromegaly, no lymphadenopathy, no carotid bruit Heart: RRR, no murmur, no gallops, no rubs, normal peripheral pulses Respiratory: CTAB, no wheezes, no rales, no ronchi, normal chest expansion, no tachypnea, normal percussion Gastrointestinal: soft, non-tender, non-distended, normal bowel sounds, no palpable masses, no hepatomegaly, no splenomegaly, no bruit Extremities: no cyanosis, no clubbing, no edema Skin: normal turgor, no lesions, no rashes Neurological: cranial nerve grossly intact, normal sensation to touch, no weakness, no focal deficits, no new deficit Musculoskeletal: normal tone, normal strength, no muscle wasting Psychiatric: normal affect, normal behavior, A&O x 3 Hosp A/P - Plan Pateint is a 68 year old male being treated for: # sepsis due to beta hemolytic streptococcus species w/ cellulitis - deescalated to keflex # leukocytosis - improved, due to sepsis # acute on chronic anemia - s/p 2u leukoreduced pRBC on 17 of may, monitor for improvement, no bleeding clinically - appreciate GI evaluation, continue to trend INR off of coumadin and EGD/ colonoscopy when under 1.5 or per GI recommendations # orbital mass on head CT - CT head ordered for persistent confusion, orbital mass observed, can not get contrast MRI due to ESRD and per radiology noncontrast MRI would not provide much information. Attempted to contact Dr Carpenter of ENT to discuss CT but was unsuccessful. - will place ENT consult # altered mental status secondary to toxic encephalopathy/medication overuse - stable or slightly better today, will reduce norco further from q6 to q8 hours prn, will send for liver enzymes, phosphorus and ammonia tomorrow, no known new infections # paroxysmal atrial fibrillation - appreciate cardiology assistance, continue beta blockade # LLE DVT - appreciate pharmacy assistance with coumadin dosing # coagulopathy - supratherapeutic INR, possible due to coumadin and low vitamin K in hospital, hold coumadin, trend INR # CAD, previous [place] - continue current therapy, appreciate cardiology evaluation # history of thrombocytopenia - trend CBC, monitor for bleeding # ESRD - continue HD per nephrology # DVT/GI ppx Disposition - anticipate d/c to rehab/SNF once GI evalutaion complete and anemia stable
[2019-05-21] MEDS: Metoprolol Tartrate 25 MG TAB PO SCH ×2 (06:00→20:27)
[2019-05-21] MEDS: Cephalexin 250 MG CAP PO SCH ×4 (08:17→20:27)
[2019-05-21] MEDS: Folic Acid 0.5 MG in Admixture Fee 1 EACH SC SCH (08:17)
[2019-05-21] MEDS: HYDROcodone/Acetaminophen 5/325 mg Tablet PO PRN (08:18)
[2019-05-21] MEDS: Artificial Tear Sol 15 ML BOT EA EYE SCH ×3 (08:24→20:26)
[2019-05-21] MEDS: Polyethylene Glycol 3350 17 GM Packet PO SCH ×2 (08:26→20:27)
[2019-05-21] MEDS: Famotidine 20 MG TAB PO SCH (08:26)
[2019-05-21 09:26] LABS: #Eosinphils 0.4 thou/uL (0.0-0.7); #Lymphocytes 1.2 thou/uL (1.20-3.40); #Monocytes 0.6 thou/uL (0.11-0.59); #Neutrophils 6.4 thou/uL (1.40-6.50); %Basophils 0.1 % (0.0-1.0); %Eosinophils 4.8 % (0.0-10.0); %Lymphocytes 13.4 % (21.0-51.0); %Monocytes 7.2 % (0.0-10.0); %Neutrophils 74.5 % (42.0-75.0); Hemoglobin 9.7 g/dL (14.0-18.0); Mean Corpuscular HGB CONC 33.2 g/dL (32.0-36.0); Mean Corpuscular Hemoglobin 31.6 pg (27.0-31.0); Mean Corpuscular Volume 95.2 fL (78.0-98.0); Mean Platelet Volume 6.4 fL (7.4-10.4); Platelet Count 297 thou/uL (130-400); RBC Distribution Width 14.3 % (11.5-14.5); Red Blood Cell (RBC) Count 3.07 mill/uL (4.70-6.10); White Blood Cell (WBC) Count 8.6 thou/uL (4.8-10.8)
[2019-05-21 09:33] LABS: INR-International Normal Ratio 1.8
[2019-05-21 09:40] LABS: Anion Gap 13 mmol/L (10-20); BUN (Urea Nitrogen) 30 mg/dL (8.4-25.7); Calc. Creatinine Clearance 16 mL/min (70-130); Calcium 7.1 mg/dL (7.8-10.44); Carbon Dioxide 27 mmol/L (23-31); Chloride 97 mmol/L (98-107); Estimated GFR-MDRD 9; Glucose 119 mg/dL (80-115); Magnesium 2.1 mg/dL (1.6-2.6); Potassium 4.3 mmol/L (3.5-5.1); Sodium 133 mmol/L (136-145)
[2019-05-21] MEDS ORDERED: PROPOFOL 200 MG/20 ML VIAL ONE (09:40)
[2019-05-21] MEDS ORDERED: Lidocaine 1% PF 5 ML VIAL ONE (09:40)
[2019-05-21] MEDS ORDERED: EPINEPHrine 1 MG/10 ML Abboject SYRINGE ONE (09:40)
[2019-05-21 09:41] LABS: ALT (SGPT) Less than 7 U/L (8-55); AST (SGOT) 51 U/L (5-34); Albumin 3.1 g/dL (3.4-4.8); Alkaline Phosphatase 67 U/L (40-110); Bilirubin, Direct 0.4 mg/dL (0.1-0.3); Bilirubin, Total 0.7 mg/dL (0.2-1.2); Phosphorus 3.5 mg/dL (2.3-4.7); Protein, Total 8.9 g/dL (5.8-8.1)
[2019-05-21] MEDS ORDERED: Ondansetron HCl/PF 4 MG/2 ML Vial IVP PRN (11:51)
[2019-05-21] MEDS ORDERED: Midazolam HCl 2 mg/2 ml Vial ONE (12:35)
--- NOTE | 2019-05-21 14:34 | OP ---
DATE OF PROCEDURE: 05/21/2019 PROCEDURES PERFORMED: 1. Esophagogastroduodenoscopy with injection of epinephrine 1:10,000 solution. 2. Esophagogastroduodenoscopy with hemoclip placement. PREOPERATIVE DIAGNOSIS: Gastrointestinal bleeding. POSTOPERATIVE DIAGNOSES: 1. Esophagitis, distal esophagus, grade 2. No ulceration or erosions seen. 2. Normal stomach. 3. Ulcer in the duodenal bulb with a visible vessel with oozing of blood. 4. Another small ulcer around the duodenal sweep with no bleeding. DESCRIPTION OF PROCEDURE: The patient was placed on his left lateral position and was given sedation by Anesthesia Department. Again Pentax video gastroscope under direct vision passed down the oropharynx past the GE junction into the stomach and subsequently into his duodenum. The esophageal mucosa appears normal throughout. However, in the distal esophagus, he had mucosal edema, friability, and erythema. The findings are indicative of esophagitis grade 2. The fundus, cardia, gastric body, gastric antrum; no lesion seen. The scope was advanced into the duodenal bulb. The patient's ulceration with a visible vessel with oozing of blood. He was on warfarin and previously PT was prolonged . The area was injected with epinephrine 1:10,000 solution about a total of 90 mL. Following that, there were 2 hemoclips placed. The scope was withdrawn back and biopsy was obtained from the gastric antrum. The stomach was decompressed and scope was removed. RECOMMENDATION: 1. Clear liquid diet for today. 2. Follow up H and H. 3. Advance diet to renal diet tomorrow hopefully if he has no recurrence of bleeding. Job ID: [id number]
--- NOTE | 2019-05-21 15:31 | PDOC.HOSPP ---
- Subjective Subjective: Seen and examined. Back from EGD, with intervention required - see full report for details. Patient denies pain. Breathing well. No confusion and his mentation is at his baseline. All questions answered in detail. Patient with no acute complaints. - Objective Vital Signs & Weight: Vital Signs (12 hours) Temp Pulse Resp BP Pulse Ox 05/21/19 13:42 86 18 158/68 H 98 05/21/19 07:51 97.9 F 80 16 166/73 H 98 05/21/19 07:20 96 Weight Admit Weight 282 lb 13.649 oz Weight 255 lb 2 oz I&O: 05/20/19 05/21/19 05/22/19 06:59 06:59 06:59 Intake Total 240 360 Output Total 3000 Balance -2760 360 Result Diagrams: 05/21/19 09:12 05/21/19 09:12 Additional Labs: Accuchecks 05/21/19 05/21/19 05/20/19 11:22 04:42 19:51 POC Glucose 118 H 127 H 189 H 05/20/19 16:04 POC Glucose 144 H Radiology Reviewed by me: Yes Hospitalist ROS - Review of Systems All other systems reviewed; all pertinent +/- noted in HPI/Subj - Medication Medications: Active Medications Generic Name Dose Route Start Last Admin Trade Name Freq PRN Reason Stop Dose Admin Acetaminophen 650 mg 05/08/19 15:12 05/20/19 20:14 Tylenol PO 650 mg Q4H PRN Administration Headache/Fever/Mild Pain (1-3) Hydrocodone Bitart/Acetaminophen 1 tab 05/19/19 14:22 05/21/19 08:18 [place] 5/325 PO 1 tab Q8H PRN Administration Severe Pain (7-10) Al Hydroxide/Mg Hydroxide 30 ml 05/14/19 23:34 05/15/19 00:46 Maalox PO 30 ml Q6H PRN Administration GI Cramping Artificial Tears 0 drop 05/18/19 21:00 05/21/19 15:18 Liquitears 15ml Bottle EA EYE 1 drop TID JOSE LUIS Administration Aspirin 81 mg 05/10/19 09:00 05/18/19 08:34 Ecotrin PO 81 mg DAILY JOSE LUIS Administration Bisacodyl 10 mg 05/14/19 23:34 05/15/19 00:47 Dulcolax PO 10 mg DAILYPRN PRN Administration Constipation Cephalexin 250 mg 05/19/19 17:00 05/21/19 15:26 Keflex PO Not Given QID JOSE LUIS Famotidine 20 mg 05/10/19 09:00 05/21/19 08:26 Pepcid PO Not Given DAILY JOSE LUIS Folic Acid 0.5 mg/ 0.1 mls @ 0 mls/hr 05/17/19 09:00 05/21/19 08:17 Miscellaneous Medication SC 0.1 mls DAILY JOSE LUIS Administration Insulin Human Lispro 0 units 05/08/19 15:22 05/18/19 17:18 Humalog SC 2 unit .MILD SLIDING SCALE PRN Administration Mild Correctional Scale Metoprolol Tartrate 25 mg 05/10/19 21:00 05/21/19 06:00 Lopressor PO 25 mg BID JOSE LUIS Administration Polyethylene Glycol 17 gm 05/15/19 09:00 05/21/19 08:26 Miralax PO Not Given BID JOSE LUIS - Exam General Appearance: NAD Eye: anicteric sclera ENT: normocephalic atraumatic, moist mucosa Neck: supple, symmetric, no lymphadenopathy Heart: no murmur, no gallops, no rubs Respiratory: CTAB, no wheezes, no rales, no ronchi Gastrointestinal: soft, non-tender, no guarding, no rigidity Extremities: no edema Skin: no lesions, no rashes Neurological: cranial nerve grossly intact, normal sensation to touch Musculoskeletal: generalized weakness Psychiatric: normal affect, normal behavior, oriented to person, oriented to place Hosp A/P (1) GI bleeding Code(s): K92.2 - GASTROINTESTINAL HEMORRHAGE, UNSPECIFIED Status: Acute (2) Diabetes 1.5, managed as type 2 Code(s): E13.9 - OTHER SPECIFIED DIABETES MELLITUS WITHOUT COMPLICATIONS Status: Chronic (3) ESRD (end stage renal disease) on dialysis Code(s): N18.6 - END STAGE RENAL DISEASE; Z99.2 - DEPENDENCE ON RENAL DIALYSIS Status: Chronic (4) Hypertension Code(s): I10 - ESSENTIAL (PRIMARY) HYPERTENSION Status: Chronic (5) Tobacco abuse Code(s): Z72.0 - TOBACCO USE Status: Chronic - Plan Plan: medical unit gastroenterology consultation, recommendations appreciated nephrology consultation, recommendations appreciated status post EGD with hemo clip placement times two - please see full report for details transfuse two units of packed red blood cells for hemoglobin less than 7.0 No anticoagulation, NSAID, Anti-platelet with GI bleeding hemodialysis per nephrology blood pressure control blood sugar control continue other home medications as able DVT prophylaxis
--- NOTE | 2019-05-21 20:09 | PRG ---
DATE OF SERVICE: 05/21/2019 POST-PROCEDURE VISIT TIME OF VISIT: 7:30 p.m. SUBJECTIVE: This is a 68-year-old male with chronic kidney disease, had an episode of bleeding couple of days ago. He was on warfarin and an EGD could not be done. He has been pretty stable. No abdominal pain. No nausea or vomiting. Has no rectal bleeding. He underwent EGD today and was found to have bleeding ulcer in the duodenum. He underwent injection of epinephrine and also a hemoclipping. He was kept on clear liquid diet Risk of bleeding because of large blood vessel. Has done well after he came back from endoscopy room. He has had no abdominal pain, no nausea, no vomiting. He has normal stool. RECOMMENDATIONS: 1. Continue PPI. 2. If he does well, advance to a renal diet tomorrow. Job ID: [id number]
[2019-05-21] MEDS: Acetaminophen 325 MG TAB PO PRN (20:27)
[2019-05-22] MEDS: Acetaminophen 325 MG TAB PO PRN ×3 (01:35→20:57)
[2019-05-22 07:13] LABS: Hemoglobin 9.5 g/dL (14.0-18.0); Platelet Count 272 thou/uL (130-400)
[2019-05-22 07:44] LABS: ALT (SGPT) Less than 7 U/L (8-55); AST (SGOT) 49 U/L (5-34); Alkaline Phosphatase 66 U/L (40-110); Bilirubin, Direct 0.4 mg/dL (0.1-0.3); Bilirubin, Total 0.7 mg/dL (0.2-1.2); Magnesium 2.1 mg/dL (1.6-2.6); Phosphorus 4.6 mg/dL (2.3-4.7); Protein, Total 8.4 g/dL (5.8-8.1)
[2019-05-22] MEDS: Cephalexin 250 MG CAP PO SCH ×4 (10:31→20:55)
[2019-05-22] MEDS: Metoprolol Tartrate 25 MG TAB PO SCH ×2 (10:31→20:56)
[2019-05-22] MEDS: Polyethylene Glycol 3350 17 GM Packet PO SCH ×2 (10:31→20:57)
[2019-05-22] MEDS: Artificial Tear Sol 15 ML BOT EA EYE SCH ×3 (10:32→20:58)
--- NOTE | 2019-05-22 12:52 | PDOC.HOSPP ---
- Subjective Encounter Date: 05/22/19 Encounter Time: 12:35 Subjective: f/u for GI bleed due to duodenal ulcer in context of chronic Coumadin tx. s/p EGD with Epi injection/Hemoclip. Completed HD this am. No new complaints. - Objective Vital Signs & Weight: Vital Signs (12 hours) Temp Pulse Resp BP Pulse Ox 05/22/19 08:00 97.6 F 95 20 136/79 94 L Weight Admit Weight 282 lb 13.649 oz Weight 258 lb 3 oz I&O: 05/21/19 05/22/19 05/23/19 06:59 06:59 06:59 Intake Total 360 1720 Balance 360 1720 Result Diagrams: 05/22/19 06:15 05/21/19 09:12 Additional Labs: Accuchecks 05/22/19 05/21/19 05/21/19 05:01 20:03 16:21 POC Glucose 116 H 114 H 122 H Laboratory Tests 05/16/19 05/17/19 05/18/19 04:24 03:37 04:14 Hgb INR 3.4 3.3 3.0 05/18/19 05/19/19 05/19/19 04:14 09:00 09:00 Hgb 8.9 L 8.7 L INR 2.5 05/20/19 05/20/19 05/20/19 04:17 04:17 04:17 Hgb 9.5 L 9.5 L INR 2.2 05/21/19 05/21/19 09:12 09:12 Hgb 9.7 L INR 1.8 Hospitalist ROS - Medication Medications: Active Medications Generic Name Dose Route Start Last Admin Trade Name Freq PRN Reason Stop Dose Admin Acetaminophen 650 mg 05/08/19 15:12 05/22/19 01:35 Tylenol PO 650 mg Q4H PRN Administration Headache/Fever/Mild Pain (1-3) Hydrocodone Bitart/Acetaminophen 1 tab 05/19/19 14:22 05/21/19 08:18 [place] 5/325 PO 1 tab Q8H PRN Administration Severe Pain (7-10) Al Hydroxide/Mg Hydroxide 30 ml 05/14/19 23:34 05/15/19 00:46 Maalox PO 30 ml Q6H PRN Administration GI Cramping Artificial Tears 0 drop 05/18/19 21:00 05/22/19 10:32 Liquitears 15ml Bottle EA EYE Not Given TID JOSE LUIS Bisacodyl 10 mg 05/14/19 23:34 05/15/19 00:47 Dulcolax PO 10 mg DAILYPRN PRN Administration Constipation Cephalexin 250 mg 05/19/19 17:00 05/22/19 10:31 Keflex PO Not Given QID JOSE LUIS Famotidine 20 mg 05/10/19 09:00 05/21/19 08:26 Pepcid PO Not Given DAILY [facility] Folic Acid 0.5 mg/ 0.1 mls @ 0 mls/hr 05/17/19 09:00 05/21/19 08:17 Miscellaneous Medication SC 0.1 mls DAILY JOSE LUIS Administration Insulin Human Lispro 0 units 05/08/19 15:22 05/18/19 17:18 Humalog SC 2 unit .MILD SLIDING SCALE PRN Administration Mild Correctional Scale Metoprolol Tartrate 25 mg 05/10/19 21:00 05/22/19 10:31 Lopressor PO Not Given BID [facility] Polyethylene Glycol 17 gm 05/15/19 09:00 05/22/19 10:31 Miralax PO Not Given BID JOSE LUIS - Exam General Appearance: NAD, awake alert Eye: PERRL, anicteric sclera ENT: normocephalic atraumatic, no oropharyngeal lesions Neck: supple, symmetric, no JVD, no thyromegaly Heart: RRR, no gallops, no rubs Respiratory: CTAB, no wheezes, no rales, no ronchi Gastrointestinal: soft, non-tender, non-distended, normal bowel sounds, no palpable masses Extremities: no cyanosis, no clubbing Skin: normal turgor, no lesions Neurological: cranial nerve grossly intact, no new deficit Musculoskeletal: normal tone, generalized weakness Psychiatric: normal affect, A&O x 3 Hosp A/P (1) GI bleeding Code(s): K92.2 - GASTROINTESTINAL HEMORRHAGE, UNSPECIFIED Status: Acute Plan: Secondary to duodenal ulcer, s/p 2u PRBC's, H/H stable currently (2) Duodenal ulcer Status: Acute Plan: s/p Epinephrine injection x 2 and hemoclips, hold anticoagulation/NSAIDs (3) Chronic anticoagulation Code(s): Z79.01 - CORRECTIONAL GUARD (CURRENT) USE OF ANTICOAGULANTS Status: Chronic Plan: D/C currently secondary to duodenal ulcer with bleeding (4) Pneumonia Code(s): J18.9 - PNEUMONIA, UNSPECIFIED ORGANISM Status: Acute Qualifiers: Pneumonia type: due to unspecified organism Laterality: right Lung location: lower lobe of lung Qualified Code(s): J18.9 - Pneumonia, unspecified organism Plan: Suspected, resolving (5) ESRD (end stage renal disease) on dialysis Code(s): N18.6 - END STAGE RENAL DISEASE; Z99.2 - DEPENDENCE ON RENAL DIALYSIS Status: Chronic Plan: HD per Renal service, no volume overload currently (6) Hypertension Code(s): I10 - ESSENTIAL (PRIMARY) HYPERTENSION Status: Chronic Qualifiers: Hypertension type: essential hypertension Qualified Code(s): I10 - Essential (primary) hypertension Plan: Continue current BP regimen, serial monitoring (7) Tobacco abuse Code(s): Z72.0 - TOBACCO USE Status: Chronic Plan: Smoking cessation resources - Plan continue antibiotics, PT/OT, medical social worker Stable currently Continue HD per Renal service PT/OT for mobilization Rehab screening pending Hold anticoagulation/NSAIDs due to duodenal ulcer AM lab: BMP, H/H
[2019-05-22] MEDS: Famotidine 20 MG TAB PO SCH (12:57)
[2019-05-22] MEDS: Folic Acid 0.5 MG in Admixture Fee 1 EACH SC SCH (12:58)
--- NOTE | 2019-05-22 13:12 | PRG ---
DATE OF SERVICE: 05/22/2019 SUBJECTIVE: Mr. Alexander is doing fine. No nausea or vomiting. Tolerating his liquid diet. A bit of left-sided abdominal discomfort, which comes and goes. OBJECTIVE: VITAL SIGNS: Temperature 97.6, pulse 95, blood pressure 136/79, and 94% oxygen saturation on room air. GENERAL: No acute distress. HEART: Regular rate and rhythm. LUNGS: Clear to auscultation bilaterally. ABDOMEN: Soft, nontender to palpation. EXTREMITIES: No peripheral edema. LABORATORY STUDIES: Hemoglobin stable at 9.5, WBC 8.6, platelets 272. INR 1.8. LFTs all normal. ASSESSMENT AND PLAN: 1. Duodenal ulcer with visible vessel, now status post EGD with epinephrine injection and hemoclip placement performed yesterday by Dr. Palomino. 2. Anemia, stable. The patient has no evidence of recurrent bleeding since his upper endoscopy yesterday, hemoclip was placed. The patient needs to be started on Protonix 40 mg twice daily, and continue this for at least the next 2 months. Can advance his diet. We will plan to have him follow up in the GI clinic in about a month. GI will sign off, but please call back anytime with questions or concerns. Use caution with anticoagulation going forward. If he needs to be on anticoagulation agent, monitor hemoglobin and hematocrit at least on a weekly basis. Please call back anytime with questions or concerns. Job ID: [id number]
[2019-05-22] MEDS ORDERED: Heparin 10,000 UNITS/ 10 ML VIAL ONE (13:20)
[2019-05-22] MEDS: HumaLOG 300 UNITS/3 ML VIAL SC PRN (16:42)
[2019-05-23] MEDS: Acetaminophen 325 MG TAB PO PRN ×3 (00:35→12:29)
[2019-05-23] MEDS: Famotidine 20 MG TAB PO SCH (08:39)
[2019-05-23] MEDS: Cephalexin 250 MG CAP PO SCH ×2 (08:39→12:21)
[2019-05-23] MEDS: Metoprolol Tartrate 25 MG TAB PO SCH (08:40)
[2019-05-23] MEDS: Polyethylene Glycol 3350 17 GM Packet PO SCH (08:40)
[2019-05-23] MEDS: Artificial Tear Sol 15 ML BOT EA EYE SCH ×2 (08:43→15:16)
[2019-05-23] MEDS: Folic Acid 0.5 MG in Admixture Fee 1 EACH SC SCH (12:21)
[2019-05-23] MEDS: HumaLOG 300 UNITS/3 ML VIAL SC PRN (12:26)
[2019-05-23 13:14] VITALS: BMI 38.4
[2019-05-23 15:15] VITALS: BP 114/60; TEMP 98.2
--- NOTE | 2019-05-23 21:30 | DIS ---
DATE OF ADMISSION: 05/08/2019 DATE OF DISCHARGE: 05/23/2019 REASON FOR HOSPITALIZATION: Sepsis and new onset atrial fibrillation. PROCEDURES PERFORMED AND TREATMENTS RENDERED: The patient was admitted to medical unit with maximum medical therapy. The patient was admitted on 05/08/2019-please see full history and physical in addition to progress notes and consultation notes for full details. The patient was admitted with generalized weakness, was found to have sepsis with a possible pulmonary source. The patient was started on appropriate antibiotics. The patient is an end-stage renal patient, who follows up with Dr. Mota in the outpatient clinic and Dr. Mota was consulted for continuation of hemodialysis while inpatient hospital course was underway. The patient was evaluated by Infectious Disease specialist, Dr. King, on 05/10/2019-please see full consultation and progress notes for details. The patient with bacteremia, had further adjustment of antibiotics appropriately per Infectious Disease specialist. The patient with cellulitis of the left groin area and lymphedema, which responded to maximum medical therapy and antibiotics that were selected by Infectious Disease specialist. The patient had CT scan of the pelvis to rule out an abscess in this area-please see full radiographic image report for details-there is mild prominent left inguinal lymphadenopathy and possible left thigh cellulitis, which clinical recommendation was recommended. This did correspond to the patient's cellulitis in the region though it was effective in ruling out abscess formation. The patient was found to develop atrial fibrillation with rapid ventricular response and Cardiology was consulted on 05/11/2019-please see full consultation and progress notes for details. The patient was started on anticoagulation in addition to rhythm control agents. The patient's atrial fibrillation was paroxysmal and he did have episodes, where he went back into sinus rhythm. The patient also started on beta-patrick therapy for rate control. Unfortunately, with the addition of oral anticoagulation, the patient developed gastrointestinal bleeding. The patient was seen and evaluated by Gastroenterology on 05/18/2019-please see full consultation, progress notes, and operative reports for full details. The patient was recommended endoscopy, which was performed on 05/21/[address] Palomino-please see full operative report for details. Endoscopy with EGD did have positive upper GI bleeding and the patient required local injection of epinephrine in addition to hemoclip placement, x2 hemoclips. Please see full operative report for details. The patient was monitored postoperatively and no further episodes of bleeding were observed. The patient was recommended safe for discharge by all specialists on 05/23/2019. The patient profoundly weakened from his baseline and was recommended rehabilitation unit placement. The patient was accepted in rehabilitation facility on 05/23/2019. The patient is recommended to take all medications as directed, to be re-evaluated by admitting physician at rehabilitation facility. The patient explicitly informed to avoid any oral anticoagulation including anti-platelet therapy, aspirin, or NSAID as these are known to worsen bleeding of the intestinal tract. The patient recommended Protonix 40 mg twice per day for the next 2 months minimum until he is seen by Gastroenterology in the clinic and told otherwise to decrease this medication. The patient is recommended to follow up with Cardiology in the next 1 to 2 weeks. The patient recommend to follow up with primary care physician in 1 to 2 weeks after discharge from rehabilitation facility. The patient is recommended to return to acute care hospital immediately if signs or symptoms return, worsen, or any other new symptoms occur. The patient is recommended to follow up with Nephrology for continuation of hemodialysis while he is in the rehabilitation facility. 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 Greater than 40 minutes spent coordinating care and discharge process for this patient. Job ID: [id number]
== END 2019-05-23 16:00 | DRG 871 ==
LOC: ERS 12:32 → ERHOLD 14:40 → 2NO 18:03 → T4-B 05-18 14:33
PROVIDERS: ADMIT Internal Medicine; ATTEND Internal Medicine
PROC: 5A1D70Z Performance of Urinary Filtration, Intermittent, Less than 6 Hours Per Day (ICD-10-PCS; 2019-05-15)
PROC: 30233N1 Transfusion of Nonautologous Red Blood Cells into Peripheral Vein, Percutaneous Approach (ICD-10-PCS; 2019-05-17)
PROC: 0W3P8ZZ Control Bleeding in Gastrointestinal Tract, Via Natural or Artificial Opening Endoscopic (ICD-10-PCS; principal; 2019-05-21)
DX: A40.8 Other streptococcal sepsis (principal); N18.6 End stage renal disease; J18.9 Pneumonia, unspecified organism; I21.A1 Myocardial infarction type 2; I50.33 Acute on chronic diastolic (congestive) heart failure; G92 Toxic encephalopathy; K26.4 Chronic or unspecified duodenal ulcer with hemorrhage; J44.0 Chronic obstructive pulmonary disease with (acute) lower respiratory infection; I13.2 Hypertensive heart and chronic kidney disease with heart failure and with stage 5 chronic kidney disease, or end stage renal disease; Z68.41 Body mass index [BMI] 40.0-44.9, adult; E87.1 Hypo-osmolality and hyponatremia; E87.2 Acidosis; I82.513 Chronic embolism and thrombosis of femoral vein, bilateral; D68.32 Hemorrhagic disorder due to extrinsic circulating anticoagulants; L03.314 Cellulitis of groin; I25.2 Old myocardial infarction; E11.22 Type 2 diabetes mellitus with diabetic chronic kidney disease; F17.210 Nicotine dependence, cigarettes, uncomplicated; M47.22 Other spondylosis with radiculopathy, cervical region; R65.20 Severe sepsis without septic shock; D63.1 Anemia in chronic kidney disease; I25.10 Atherosclerotic heart disease of native coronary artery without angina pectoris; D69.6 Thrombocytopenia, unspecified; E66.01 Morbid (severe) obesity due to excess calories; E83.51 Hypocalcemia; E87.5 Hyperkalemia; I48.0 Paroxysmal atrial fibrillation; E53.8 Deficiency of other specified B group vitamins; T40.605A Adverse effect of unspecified narcotics, initial encounter; T45.515A Adverse effect of anticoagulants, initial encounter; K20.9 Esophagitis, unspecified; Z99.2 Dependence on renal dialysis; Z88.5 Allergy status to narcotic agent; Z98.1 Arthrodesis status; Z79.4 Long term (current) use of insulin; Z79.899 Other long term (current) drug therapy; I89.0 Lymphedema, not elsewhere classified
CPT/HCPCS: 36415; 36416; 36430; 70450; 71045; 71250; 72193; 80048; 80053; 80076; 80202; 82140; 82274; 82550; 82553; 82607; 82728; 82746; 82805; 83540; 83550; 83605; 83735; 83880; 84100; 84484; 85014; 85018; 85025; 85049; 85610; 85730; 86140; 86850; 86900; 86901; 87040; 87077; 87149; 87186; 88305; 88312; 90935; 93005; 93306; 93970; 94640; 94760; 96361; 96365; 96367; G0257; J0171; J0456; J0690; J0692; J0696; J1644; J1885; J2001; J2250; J2704; J3370; J3490; J7050; J7620; P9016

== ENCOUNTER 2019-06-11 14:39 | Inpatient (IN) | payer MEDICARE ==
[~2019-06-11 14:39] MED LIST: Iopamidol-370 76% 500 ML 1 ML ONE
[2019-06-11 15:29] LABS: INR-International Normal Ratio 1.7; PTT 35.2 SEC (22.9-36.1); Prothrombin Time 19.6 SEC (12.0-14.7)
[2019-06-11 16:05] LABS: CKMB 4.6 ng/mL (0-6.6)
[2019-06-11 16:08] LABS: ALT (SGPT) 12 U/L (8-55); AST (SGOT) 33 U/L (5-34); Albumin 3.1 g/dL (3.4-4.8); Alkaline Phosphatase 99 U/L (40-110); Anion Gap 20 mmol/L (10-20); BUN (Urea Nitrogen) 32 mg/dL (8.4-25.7); Bilirubin, Total 0.6 mg/dL (0.2-1.2); Calc. Creatinine Clearance 0 mL/min (70-130); Calcium 7.3 mg/dL (7.8-10.44); Carbon Dioxide 23 mmol/L (23-31); Chloride 96 mmol/L (98-107); Estimated GFR-MDRD 9; Globulin 5.7 g/dL (2.4-3.5); Glucose 144 mg/dL (80-115); Lipase 30 U/L (8-78); Magnesium 1.9 mg/dL (1.6-2.6); Potassium 4.9 mmol/L (3.5-5.1); Protein, Total 8.8 g/dL (5.8-8.1); Sodium 134 mmol/L (136-145)
--- NOTE | 2019-06-11 16:13 | RAD ---
Exam: Chest one view portable: HISTORY: Hypertension, shortness of breath COMPARISON: 05/08/2019 FINDINGS: Poor inspiration. Extensive fixation of the cervical and upper thoracic spine. Multiple left-sided ve nous vascular stents. Borderline cardiomegaly. No confluent pneumonia, overt edema or pleural effusion. IMPRESSION: No significant acute intrathoracic disease.
--- NOTE | 2019-06-11 16:17 | CT ---
CTA Angio Chest W WO Con 06/11/2019 3:14 PM Indication: History of DVT and hypotension Technique: Multiple CTA images were obtained of the thorax with IV contrast. 3-D rendering: MIP armida nstructed images were created and reviewed. Comparison: CT of the thorax dated May 09, [address] PE examination dated November 23, 2015 Findings: Pulmonary arteries: No central or segmental pulmonary embolus is evident. Heart and Aorta: Normal appearing. Mediastinum:There is a stable mildly prominent subcarinal lymph node measuring 1.6 cm. This is been s table since 2016. Heart size is normal. The origins of the great vessels of the neck are normal appearing. There is endovascular stent seen within the left subclavian vein and in the region of the left cephalic vein. Lungs:There are areas of scattered subsegmental volume loss. No confluent airspace opacity is evident . Pleural space: Clear. Upper Abdomen: There is partial visualization of the exophytic hyperdense and hypodense lesions invo lving the kidneys, incompletely characterized. No acute abnormality is seen. Osseous Structures: No acute osseous abnormality. There is partial visualization of posterior latera l spinal instrumentation spanning T1-T3 that is stable to the prior exam. There is partial visualization of ACDF plate involving C6-C7. Soft tissues:No abnormality. Other findings:None. Impression: No central or segmental pulmonary embolus.
[2019-06-11 16:57] LABS: #Eosinphils 0.4 thou/uL (0.0-0.7); #Lymphocytes 1.4 thou/uL (1.20-3.40); #Monocytes 0.6 thou/uL (0.11-0.59); #Neutrophils 4.6 thou/uL (1.40-6.50); %Basophils 0.1 % (0.0-1.0); %Eosinophils 6.1 % (0.0-10.0); %Lymphocytes 19.6 % (21.0-51.0); %Monocytes 8.2 % (0.0-10.0); Hemoglobin 10.3 g/dL (14.0-18.0); Mean Corpuscular HGB CONC 33.3 g/dL (32.0-36.0); Mean Corpuscular Volume 99.1 fL (78.0-98.0); Mean Platelet Volume 8.2 fL (7.4-10.4); Platelet Count 175 thou/uL (130-400); RBC Distribution Width 14.2 % (11.5-14.5); Red Blood Cell (RBC) Count 3.13 mill/uL (4.70-6.10)
[2019-06-11 17:12] LABS: Troponin I 0.086 ng/mL (< 0.028)
[2019-06-11] MEDS ORDERED: Cefepime 1 GM VIAL ONE (17:20)
[2019-06-11] MEDS ORDERED: Pantoprazole 40 MG VIAL ONE (17:32)
[2019-06-11] MEDS ORDERED: Dextrose 50% Abboject 50 ML SYRINGE SLOW IVP PRN (18:45)
[2019-06-11] MEDS ORDERED: HumaLOG 300 UNITS/3 ML VIAL SC PRN (18:45)
[2019-06-11] MEDS ORDERED: Dextrose 5% in Water 1,000 ML IV PRN (18:45)
[2019-06-11 18:58] LABS: Lactic Acid 2.1 mmol/L (0.5-2.2)
[2019-06-11] MEDS ORDERED: Piperacillin/Tazobactam 0.75 GM in Sodium Chloride 0.9% 100 ML IVPB SCH (19:30)
--- NOTE | 2019-06-11 19:54 | CT ---
CT of the orbits with IV contrast INDICATION: Concern for ocular abscess COMPARISON: Prior CT of the brain dated May 20, 2019, July 20, 2018 and January 21, 2012. FINDINGS: There is a 1.3 x 1.4 cm curvilinear hyperdensity seen along the right posterior superior la teral aspect of the right globe, subjacent to the right lacrimal gland that was present on comparison CTs of brain dated 05/20/2019 and July 20, 2018. This was not present on the comparison CT dated January 21, 2012. There is an additional 3.8 cm radiodensity seen involving the right superolateral aspect of the right sclera on image 22 series 5. Smaller additional radiodensity measur ing 1.9 mm seen involving the right inferior lateral scleral on image 16 of series 5. The postseptal fat is well-maintained. The visualized extraocular muscles and optic nerve appear within n ormal limits. The cachil dehe lenses are in place. The globes appear intact. Just intracranial contents appear within normal limits. Paranasal sinuses are clear. IMPRESSION: Stable curvilinear extraocular hyperdensity situated along the right superior posterior l ateral aspect of the right globe suspicious for an ophthalmologic prosthesis. This possibly could be related to the right lacrimal gland or possibly to the right globe for retinal detachment. This pr osthetic component has been placed since June 2018. This was not present in December of 2011. Recommend correlation patient's surgical history. Additional radiodensities are seen within the right aspect of the sclera, also suspicious for prior surgery. No acute infection is grossly evident involving the orbits. Findings discussed with Dr. Herrera at 7:45 PM on June 11, 2019.
--- NOTE | 2019-06-11 20:31 | HP ---
CHIEF COMPLAINT: Generalized weakness and fall. HISTORY OF PRESENT ILLNESS: The patient is a 68-year-old male who presents to the hospital after multiple complaints of fall and not feeling well. The patient is a dialysis patient, goes dialysis Wednesday, Wednesday, and Wednesday. Had dialysis on Wednesday. The patient states that today he did not eat very much. He just had a cup of coffee and also had a soda pop and kept falling at home. The patient is actually wheelchair bound and has minimal activity. He also complained of some generalized weakness. At this time, his sister called EMS and he was found to have a blood pressure in the 80s/40s. At this time, he was brought into the hospital for further evaluation. The patient denies any fevers or chills, any nausea, vomiting, or diarrhea. He denies any chest tightness either. The patient states that he has been compliant with his medications. Upon reviewing his chart, his last discharge was on 05/23/2019, and at this time, he was found to have some bacteremia and also was seen by Infectious Disease. The patient also developed atrial fibrillation and at this time, Cardiology was consulted. He also was evaluated by GI and underwent an EGD, which indicated upper GI bleed and the patient had undergone a local injection with epinephrine and also had hemoclips x2. At this time, I believe that is why his anticoagulation for atrial fibrillation was not started. PAST MEDICAL HISTORY: 1. He has a history of end-stage renal disease, on dialysis Wednesday, Wednesday, Wednesday. He has had a history of GI bleed. 2. He has had atrial fibrillation, paroxysmal. 3. Obesity. 4. Diabetes. 5. Chronic back pain. 6. MO. 7. Hypertension. PAST SURGICAL HISTORY: He has had spine surgery. He has had subtotal parathyroidectomy. He also had an AV fistula in his left arm. ALLERGIES: HE IS ALLERGIC TO CODEINE. MEDICATIONS: He is on: 1. Levemir. 2. Metoprolol. 3. Crockett and aspirin. I do not see any Protonix on his medication, however this I believe is not very accurate. REVIEW OF SYSTEMS: All negative except for the ones mentioned above in the HPI. FAMILY HISTORY: No history of heart disease, however, has a disease of hypertension. 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 He is currently a smoker, about a few cigarettes a day and denies any alcohol use. PHYSICAL EXAMINATION: VITAL SIGNS: Temperature 99.0, blood pressure 96/49, pulse of 108, 64 MAP, 96% on room air. GENERAL: He is awake, alert, and oriented x3. Does not appear in any distress. HEENT: Normocephalic, atraumatic. No lymphadenopathy noted. Pupils equally reactive to light. CV: S1 and S2 present. Irregularly irregular. LUNGS: Clear to auscultation. No rhonchi or wheezes noted. ABDOMEN: Obese. Bowel sounds are present x2. EXTREMITIES: He has significant lower extremity dryness with +1 extremity edema. SKIN: Lower extremity is very, very dry. He does have a small scab in his 3rd toe. Also, he has some small scabs in his abdomen area. NEUROLOGICAL: No focal deficits noted. RECTAL: Rectal tone is stable. The patient was complaining of rectal pain and appeared to be just stool when I did a rectal exam on him. LABORATORY RESULTS: His lactic acid is 2.1. His WBCs of 7.0, hemoglobin of 10.3, hematocrit of 31.0. Troponins 0.086. He has no left shift. He did have a CTA to rule out PE, which was negative for PE. His sodium was 134, potassium of 4.9, BUN of 32, creatinine 7.14, magnesium of 1.9. Initially, lactic acid was 3.5. ASSESSMENT AND PLAN: The patient is a very pleasant 68-year-old male who presents to the hospital with generalized weakness. 1. Sepsis, unclear etiology at this point. He does not really have elevated white count, however he is very hypotensive and he is tachycardic. He has elevated lactic acid, which could be from hypotension. He has had a GI bleed in the past. I will hydrate him. He has received a total of 1 L of IV fluids. I will start him on some gentle hydration at 50 mL/hour. He seems to be responding well to fluids. Also, I will start him on broad-spectrum antibiotics with Zosyn and vancomycin with pharmacy dosing for his renal function. Also, I will check an H and H every 6 hours to make sure that his hemoglobin does not start dropping. We will put him on Protonix twice a day. His chest x-ray was negative. He has no cough. He has no diarrhea. He does not make any urine. He initially was complaining of rectal pain. I did a rectal exam. I do not see any cuts, lesions, or bruises. His stool appeared to be brown. I also looked at his testicle area to see if he had any redness or erythema, nothing was noted and he had no pain upon palpation of his abdomen to state there is any kind of intraabdominal infection. 2. Elevated lactic acidosis, could be from the hypotension. I will hold off on his blood pressure medications and continue some gentle hydration. 3. End-stage renal disease, on dialysis. We will get Nephrology to see him. However, the patient's blood pressure is too low for even dialysis. His last dialysis was on Wednesday and he stated that they removed 2 L. 4. Deep venous thrombosis prophylaxis. We will put the patient on SCDs and also we will continue to monitor this patient. We will hold off on any Lovenox or heparin; however, his platelets are still stable. 5. Elevated troponins. No significant EKG changes. He does not have any chest pain. I will continue to monitor. Job ID: [id number]
[2019-06-11] MEDS ORDERED: Midodrine HCl 5 MG TAB PO SCH (21:00)
[2019-06-11] MEDS ORDERED: Vancomycin HCl 750 MG in Sodium Chloride 0.9% 250 ML 250 ML IVPB SCH (21:00)
[2019-06-11 21:22] LABS: Hemoglobin 10.8 g/dL (14.0-18.0)
[2019-06-11] MEDS: Sodium Chloride 0.9% 1,000 ML IV SCH (21:23)
[2019-06-11] MEDS ORDERED: Sodium Chloride 0.9% (PF) 10 ML VIAL FS PRN (22:09)
[2019-06-11] MEDS ORDERED: DOPamine 400 MG/D5W 250 ML 250 ML IVPB SCH (22:30)
[2019-06-11 22:37] LABS: Troponin I 0.091 ng/mL (< 0.028)
[2019-06-11] MEDS: Piperacillin/Tazobactam 2.25 GM in Sodium Chloride 0.9% 100 ML IVPB SCH (23:11)
[2019-06-11] MEDS: Pantoprazole 40 MG VIAL IVP SCH (23:12)
[2019-06-11] MEDS: Midodrine HCl 5 MG TAB PO SCH (23:12)
[2019-06-12 01:49] LABS: Hemoglobin 9.8 g/dL (14.0-18.0)
[2019-06-12 04:05] LABS: Anion Gap 16 mmol/L (10-20); BUN (Urea Nitrogen) 34 mg/dL (8.4-25.7); Calc. Creatinine Clearance 15 mL/min (70-130); Calcium 6.6 mg/dL (7.8-10.44); Carbon Dioxide 23 mmol/L (23-31); Chloride 98 mmol/L (98-107); Estimated GFR-MDRD 8; Glucose 126 mg/dL (80-115); Potassium 4.7 mmol/L (3.5-5.1); Sodium 132 mmol/L (136-145)
[2019-06-12 04:48] LABS: #Eosinphils 0.4 thou/uL (0.0-0.7); #Lymphocytes 1.3 thou/uL (1.20-3.40); #Monocytes 0.5 thou/uL (0.11-0.59); #Neutrophils 4.1 thou/uL (1.40-6.50); %Basophils 0.1 % (0.0-1.0); %Eosinophils 6.8 % (0.0-10.0); %Lymphocytes 20.9 % (21.0-51.0); %Monocytes 7.2 % (0.0-10.0); %Neutrophils 65.1 % (42.0-75.0); Hemoglobin 9.9 g/dL (14.0-18.0); Mean Corpuscular HGB CONC 34.3 g/dL (32.0-36.0); Mean Corpuscular Hemoglobin 34.1 pg (27.0-31.0); Mean Corpuscular Volume 99.4 fL (78.0-98.0); Mean Platelet Volume 8.1 fL (7.4-10.4); Platelet Count 174 thou/uL (130-400); RBC Distribution Width 14.2 % (11.5-14.5); Red Blood Cell (RBC) Count 2.91 mill/uL (4.70-6.10); White Blood Cell (WBC) Count 6.4 thou/uL (4.8-10.8)
[2019-06-12] MEDS: Midodrine HCl 5 MG TAB PO SCH ×3 (06:27→21:13)
[2019-06-12 08:41] LABS: Vancomycin, Random 12.3 ug/mL (See Comment)
[2019-06-12] MEDS ORDERED: HOLD VANCOMYCIN FOR LEVEL >20 FS SCH (09:00)
[2019-06-12] MEDS ORDERED: Vancomycin HCl 1.5 GM in Sodium Chloride 0.9% 250 ML 300 ML IVPB SCH (09:00)
[2019-06-12] MEDS ORDERED: Vancomycin HCl 1 GM in Premix Bag 1 BAG IVPB SCH (09:00)
[2019-06-12] MEDS ORDERED: Vancomycin HCl 1.25 GM in Sodium Chloride 0.9% 250 ML 250 ML IVPB SCH (09:00)
[2019-06-12] MEDS ORDERED: Vancomycin HCl 750 MG in Sodium Chloride 0.9% 250 ML 250 ML IVPB SCH (09:00)
[2019-06-12] MEDS: Piperacillin/Tazobactam 2.25 GM in Sodium Chloride 0.9% 100 ML IVPB SCH ×2 (09:06→21:13)
[2019-06-12] MEDS: Pantoprazole 40 MG VIAL IVP SCH ×2 (09:07→21:12)
[2019-06-12] MEDS: Acetaminophen 325 MG TAB PO PRN (11:06)
[2019-06-12 12:12] LABS: Hemoglobin 9.9 g/dL (14.0-18.0)
[2019-06-12] MEDS: traMADol HCl 50 MG TAB PO PRN (15:21)
--- NOTE | 2019-06-12 15:28 | PDOC.HOSPP ---
- Subjective Encounter Date: 06/12/19 Encounter Time: 15:25 Subjective: f/u for hypotension, AMS, fall and suspected sepsis. Blood cx neg x 2 and tx with Zosyn/Vanc. Initiated on Midodrine but BP remains low. - Objective Vital Signs & Weight: Vital Signs (12 hours) Temp Pulse Ox 06/12/19 11:13 99.0 F 06/12/19 07:50 94 L 06/12/19 07:17 99.4 F 06/12/19 06:28 96 06/12/19 04:00 100.0 F H Weight Weight 264 lb 1.82 oz Most Recent Monitor Data Heart Rate from ECG 88 NIBP 132/56 NIBP BP-Mean 81 Respiration from ECG 18 SpO2 97 Result Diagrams: 06/12/19 11:59 06/12/19 03:39 Additional Labs: Accuchecks 06/12/19 06/12/19 06/11/19 10:38 05:39 21:37 POC Glucose 94 115 H 147 H 06/11/19 20:08 POC Glucose 127 H Microbiology 06/11/19 15:44 Venous blood - Right Hand Blood Culture - Preliminary Specimen has been received and culture in progress. No Growth to date. 06/11/19 15:23 Venous blood - Right Hand Blood Culture - Preliminary Specimen has been received and culture in progress. No Growth to date. Laboratory Tests 05/16/19 05/17/19 05/18/19 04:24 03:37 04:14 Hgb INR 3.4 3.3 3.0 Lactic Acid Troponin I B-Natriuretic Peptide Random Vancomycin 05/18/19 05/19/19 05/19/19 04:14 09:00 09:00 Hgb 8.9 L 8.7 L INR 2.5 Lactic Acid Troponin I B-Natriuretic Peptide Random Vancomycin 05/20/19 05/20/19 05/20/19 04:17 04:17 04:17 Hgb 9.5 L 9.5 L INR 2.2 Lactic Acid Troponin I B-Natriuretic Peptide Random Vancomycin 05/21/19 05/21/19 06/11/19 09:12 09:12 15:10 Hgb 9.7 L INR 1.8 Lactic Acid Troponin I 0.089 H B-Natriuretic Peptide Random Vancomycin 06/11/19 06/11/19 06/11/19 15:10 15:23 16:44 Hgb 10.3 L INR Lactic Acid 3.5 H Troponin I B-Natriuretic Peptide 86.5 Random Vancomycin 06/11/19 06/11/19 06/11/19 16:45 17:51 21:05 Hgb INR Lactic Acid 2.1 Troponin I 0.086 H 0.070 H B-Natriuretic Peptide Random Vancomycin 06/11/19 06/11/19 06/12/19 21:06 21:56 01:38 Hgb 10.8 L 9.8 L INR Lactic Acid Troponin I 0.091 H B-Natriuretic Peptide Random Vancomycin 06/12/19 06/12/19 03:39 08:18 Hgb 9.9 L INR Lactic Acid Troponin I B-Natriuretic Peptide Random Vancomycin 12.3 Radiology Reviewed by me: Yes (CTA chest - no PE) EKG Reviewed by me: Yes (Tele - SR) Hospitalist ROS - Medication Medications: Active Medications Generic Name Dose Route Start Last Admin Trade Name Freq PRN Reason Stop Dose Admin Acetaminophen 650 mg 06/11/19 18:43 06/12/19 11:06 Tylenol PO 650 mg Q4H PRN Administration Headache/Fever/Mild Pain (1-3) Piperacillin Sod/Tazobactam 100 mls @ 200 mls/hr 06/11/19 21:00 06/12/19 09: 06 Sod 2.25 gm/ Sodium Chloride IVPB 100 mls Q12HR JOSE LUIS Administration Sodium Chloride 1,000 mls @ 50 mls/hr 06/11/19 19:30 06/11/19 21:23 Normal Saline 0.9% IV 1,000 mls .Q20H JOSE LUIS Administration Vancomycin HCl 1 gm/ Device 200 mls @ 200 mls/hr 06/12/19 09:00 06/12/19 15: 21 IVPB 200 mls WILLCALL JOSE LUIS Administration Midodrine 15 mg 06/11/19 22:00 06/12/19 14:25 Proamatine PO 15 mg Q8HR JOSE LUIS Administration Pantoprazole Sodium 40 mg 06/11/19 21:00 06/12/19 09:07 Protonix IVP 40 mg Q12HR JOSE LUIS Administration Sodium Chloride 10 ml 06/11/19 21:00 06/12/19 09:07 Flush - Normal Saline IVF Not Given Q12HR JOSE LUIS Tramadol HCl 50 mg 06/12/19 15:13 06/12/19 15:21 Ultram PO 50 mg Q6H PRN Administration Pain - Exam General - other findings: somnolent, sleepy Eye: PERRL, anicteric sclera ENT: normocephalic atraumatic, no oropharyngeal lesions Neck: supple, symmetric, no JVD, no thyromegaly Heart: RRR, no gallops, no rubs, normal peripheral pulses Respiratory: CTAB, no wheezes, no rales, no ronchi Gastrointestinal: soft, non-tender, non-distended, normal bowel sounds Gastrointestinal - other findings: obese Extremities: no cyanosis, 1+ LE edema Skin: normal turgor, no lesions Musculoskeletal: generalized weakness Psychiatric: somnolent, lethargic Hosp A/P (1) Acute metabolic encephalopathy Code(s): G93.41 - METABOLIC ENCEPHALOPATHY Status: Acute Plan: Multifactorial, continue supportive mgmt, ruling out infectious etiology, serial neuro exams (2) Hypotension Status: Acute Plan: Likely iatrogenic, hold all BP meds, continue Midodrine 15mg TID, serial BP monitoring (3) Anemia Code(s): D64.9 - ANEMIA, UNSPECIFIED Status: Chronic Qualifiers: Anemia type: unspecified type Qualified Code(s): D64.9 - Anemia, unspecified Plan: Stable currently, multifactorial including CKD, serial H/H, continue Protonix (4) ESRD (end stage renal disease) on dialysis Code(s): N18.6 - END STAGE RENAL DISEASE; Z99.2 - DEPENDENCE ON RENAL DIALYSIS Status: Chronic Plan: HD in progress, monitor BP carefully given hypotension - Plan continue antibiotics, PT/OT, social services manager, respiratory therapy, DVT proph w/ SCDs Continue supportive mgmt HD per Renal service Hold all antihypertensives Continue Midodrine CM for SNF options AM lab: H/H
[2019-06-12 16:07] LABS: Hemoglobin 9.9 g/dL (14.0-18.0)
[2019-06-12 19:58] LABS: Hemoglobin 10.8 g/dL (14.0-18.0)
--- NOTE | 2019-06-13 01:51 | CON ---
DATE OF CONSULTATION: 06/12/2019 HISTORY: Mr. Alexander is a 68-year-old male with end-stage renal disease. He was admitted to the hospital yesterday evening and underwent a Code Green. His only complaints are that he does not feel well. He will not be more specific than that. All he would say is "I feel bad." He was transferred to the intermediate care unit for drop in blood pressure. He was only recently in the hospital and was discharged less than a month ago. PAST MEDICAL HISTORY: Remarkable for, 1. Atrial fibrillation. 2. History of diabetes. 3. History of coronary artery disease. 4. History of hypertension. 5. History of spine surgery. 6. History of parathyroidectomy. 7. History of vascular access procedures. 8. History of an EGD on 05/21, where he was found to have distal esophagitis and a duodenal bulb ulcer with visible vessel that was oozing, that was injected. 9. Reported history of COPD. 10. History of cervical spondylosis. 11. History of cervical spine fixation. ALLERGIES: HE IS ALLERGIC TO CODEINE. SOCIAL HISTORY: He is a nonsmoker and nondrinker. FAMILY HISTORY: Negative for lung disease. REVIEW OF SYSTEMS: Twelve-point review of systems otherwise negative, but is remarkable for inactivity. PHYSICAL EXAMINATION: VITAL SIGNS: Blood pressure 123/59, heart rate 92, respiratory rates in the teens, and oximetry is 95%. HEENT: Pupils are equal. Sclerae anicteric. NECK: Supple. No lymphadenopathy. LUNGS: Clear. HEART: Regular rhythm. S1 and S2 are normal. There is a grade 2/6 systolic murmur. ABDOMEN: Soft and nontender. EXTREMITIES: With stasis changes and hyperpigmentation below the knees. NEUROLOGIC: Grossly nonfocal. DIAGNOSTIC DATA: CT pulmonary angiogram was done showing no infiltrates and no evidence of thromboembolic disease. He had an orbital CT done yesterday evening showing a hyperdensity in posterolateral right globe, abnormality is apparently not present in 2011, but was present on the recent CT. IMPRESSION AND PLAN: Hypotension of unclear etiology. Obviously, clinical sepsis is a #1 diagnosis, but his blood cultures are negative. He is not hemodynamically unstable and is in absolutely no distress, but he also does not provide much of history. His hemoglobin is stable and his electrolytes were noncontributory. His antibiotics probably should be de-escalated once this 48 hour cultures are negative. I am not sure I would continue to treat him with midodrine before I would increase his dry weight. I will defer to the assistant professor of physics. This is a 50 minute consult, with greater than 50% of time spent on unit coordinating care. Job ID: [id number] MTDD
[2019-06-13] MEDS: Sodium Chloride 0.9% 1,000 ML IV SCH ×2 (02:54→15:33)
[2019-06-13] MEDS: traMADol HCl 50 MG TAB PO PRN ×2 (02:54→08:17)
[2019-06-13] MEDS: Midodrine HCl 5 MG TAB PO SCH ×2 (06:01→15:33)
[2019-06-13] MEDS: Piperacillin/Tazobactam 2.25 GM in Sodium Chloride 0.9% 100 ML IVPB SCH ×2 (08:16→20:01)
[2019-06-13] MEDS: Pantoprazole 40 MG VIAL IVP SCH (08:17)
[2019-06-13] MEDS: diphenhydrAMINE 25 MG CAP PO PRN ×2 (15:30→20:01)
--- NOTE | 2019-06-13 15:49 | PDOC.HOSPP ---
- Subjective Encounter Date: 06/13/19 Encounter Time: 15:45 Subjective: f/u for suspected sepsis, hypotension and ESRD with HD. Overall feeling better today and AMS resolved. Previously on Midodrine now d/c. - Objective Vital Signs & Weight: Vital Signs (12 hours) Temp Pulse Ox 06/13/19 15:15 99.2 F 06/13/19 11:05 97.4 F L 06/13/19 07:47 97 06/13/19 07:06 98.0 F Weight Weight 268 lb 6 oz Most Recent Monitor Data Heart Rate from ECG 79 NIBP 130/55 NIBP BP-Mean 80 Respiration from ECG 20 SpO2 99 I&O: 06/12/19 06/13/19 06/14/19 06:59 06:59 06:59 Intake Total 850 Output Total 0 Balance 850 Result Diagrams: 06/12/19 19:46 06/12/19 03:39 Additional Labs: Accuchecks 06/13/19 06/13/19 06/12/19 10:26 05:50 21:06 POC Glucose 142 H 94 113 H 06/12/19 16:53 POC Glucose 84 Microbiology 06/11/19 15:44 Venous blood - Right Hand Blood Culture - Preliminary Specimen has been received and culture in progress. No Growth to date. 06/11/19 15:23 Venous blood - Right Hand Blood Culture - Preliminary Specimen has been received and culture in progress. No Growth to date. Laboratory Tests 05/16/19 05/17/19 05/18/19 04:24 03:37 04:14 Hgb INR 3.4 3.3 3.0 Lactic Acid Troponin I B-Natriuretic Peptide Random Vancomycin 05/18/19 05/19/19 05/19/19 04:14 09:00 09:00 Hgb 8.9 L 8.7 L INR 2.5 Lactic Acid Troponin I B-Natriuretic Peptide Random Vancomycin 05/20/19 05/20/19 05/20/19 04:17 04:17 04:17 Hgb 9.5 L 9.5 L INR 2.2 Lactic Acid Troponin I B-Natriuretic Peptide Random Vancomycin 05/21/19 05/21/19 06/11/19 09:12 09:12 15:10 Hgb 9.7 L INR 1.8 Lactic Acid Troponin I 0.089 H B-Natriuretic Peptide Random Vancomycin 06/11/19 06/11/19 06/11/19 15:10 15:23 16:44 Hgb 10.3 L INR Lactic Acid 3.5 H Troponin I B-Natriuretic Peptide 86.5 Random Vancomycin 06/11/19 06/11/19 06/11/19 16:45 17:51 21:05 Hgb INR Lactic Acid 2.1 Troponin I 0.086 H 0.070 H B-Natriuretic Peptide Random Vancomycin 06/11/19 06/11/19 06/12/19 21:06 21:56 01:38 Hgb 10.8 L 9.8 L INR Lactic Acid Troponin I 0.091 H B-Natriuretic Peptide Random Vancomycin 06/12/19 06/12/19 03:39 08:18 Hgb 9.9 L INR Lactic Acid Troponin I B-Natriuretic Peptide Random Vancomycin 12.3 EKG Reviewed by me: Yes (Tele - SR) Hospitalist ROS - Medication Medications: Active Medications Generic Name Dose Route Start Last Admin Trade Name Freq PRN Reason Stop Dose Admin Acetaminophen 650 mg 06/11/19 18:43 06/12/19 11:06 Tylenol PO 650 mg Q4H PRN Administration Headache/Fever/Mild Pain (1-3) Diphenhydramine HCl 25 mg 06/13/19 15:12 06/13/19 15:30 Benadryl PO 25 mg Q6H PRN Administration Itching & Insomnia Piperacillin Sod/Tazobactam 100 mls @ 200 mls/hr 06/11/19 21:00 06/13/19 08: 16 Sod 2.25 gm/ Sodium Chloride IVPB 100 mls Q12HR JOSE LUIS Administration Sodium Chloride 1,000 mls @ 50 mls/hr 06/11/19 19:30 06/13/19 15:33 Normal Saline 0.9% IV Not Given .Q20H JOSE LUIS Vancomycin HCl 1 gm/ Device 200 mls @ 200 mls/hr 06/12/19 09:00 06/12/19 15: 21 IVPB 200 mls WILLCALL JOSE LUIS Administration Midodrine 15 mg 06/11/19 22:00 06/13/19 15:33 Proamatine PO Not Given Q8HR JOSE LUIS Pantoprazole Sodium 40 mg 06/11/19 21:00 06/13/19 08:17 Protonix IVP 40 mg Q12HR JOSE LUIS Administration Sodium Chloride 10 ml 06/11/19 21:00 06/13/19 08:17 Flush - Normal Saline IVF 10 ml Q12HR JOSE LUIS Administration Tramadol HCl 50 mg 06/12/19 15:13 06/13/19 08:17 Ultram PO 50 mg Q6H PRN Administration Pain - Exam General Appearance: NAD, awake alert Eye: PERRL, anicteric sclera ENT: normocephalic atraumatic, no oropharyngeal lesions Neck: supple, symmetric, no JVD, no thyromegaly Heart: RRR, no murmur, no gallops, no rubs Respiratory: CTAB, no wheezes, no rales, no ronchi Gastrointestinal: soft, non-tender, non-distended, normal bowel sounds, no palpable masses Extremities: no cyanosis, no clubbing, 1+ LE edema Skin: normal turgor Skin - other findings: multiple excoriations, firm nodule on L buttock, no purulence Neurological: cranial nerve grossly intact, no new deficit Musculoskeletal: generalized weakness Psychiatric: normal affect, A&O x 3 Hosp A/P (1) Acute metabolic encephalopathy Code(s): G93.41 - METABOLIC ENCEPHALOPATHY Status: Acute Plan: Likely multifactorial, resolving (2) Hypotension Status: Acute Plan: Multifactorial process now resolved, hold antihypertensives another 24h, Midodrine d/c, Saline lock IVF (3) Anemia Code(s): D64.9 - ANEMIA, UNSPECIFIED Status: Chronic Qualifiers: Anemia type: unspecified type Qualified Code(s): D64.9 - Anemia, unspecified Plan: Stable H/H, serial monitoring (4) ESRD (end stage renal disease) on dialysis Code(s): N18.6 - END STAGE RENAL DISEASE; Z99.2 - DEPENDENCE ON RENAL DIALYSIS Status: Chronic Plan: HD per Renal service - Plan continue antibiotics, PT/OT, social science manager, out of bed/ambulate, DVT proph w/ SCDs Continue supportive mgmt HD per Renal service Hold all antihypertensives another 24h D/C Midodrine CM for SNF options WCT for local care L buttock Transfer to telemetry unit AM lab: H/H, BMP
[2019-06-13] MEDS ORDERED: Midodrine HCl 5 MG TAB PO PRN (16:21)
[2019-06-14] MEDS: traMADol HCl 50 MG TAB PO PRN (02:29)
[2019-06-14] MEDS: diphenhydrAMINE 25 MG CAP PO PRN ×2 (02:29→22:11)
[2019-06-14 03:43] LABS: Hemoglobin 10.7 g/dL (14.0-18.0); Platelet Count 195 thou/uL (130-400)
[2019-06-14 04:03] LABS: Anion Gap 12 mmol/L (10-20); BUN (Urea Nitrogen) 20 mg/dL (8.4-25.7); Calc. Creatinine Clearance 19 mL/min (70-130); Calcium 7.2 mg/dL (7.8-10.44); Carbon Dioxide 27 mmol/L (23-31); Chloride 100 mmol/L (98-107); Estimated GFR-MDRD 11; Glucose 105 mg/dL (80-115); Potassium 4.4 mmol/L (3.5-5.1); Sodium 135 mmol/L (136-145)
[2019-06-14] MEDS: Acetaminophen 325 MG TAB PO PRN (06:35)
--- NOTE | 2019-06-14 07:56 | PRG ---
DATE OF SERVICE: 06/13/2019 SUBJECTIVE/OBJECTIVE: VITAL SIGNS: Mr. Alexander is afebrile. Heart rate is in 80s, blood pressure 136/62, LUNGS: Clear today. HEART: Regular rhythm. ABDOMEN: Soft. He is confused. He does not remember seeing me yesterday. Yesterday all he would say was "I feel bad all over and today very pleasant," actually laughing and smiling, but was very scattered in his questioning. IMPRESSION: 1. Metabolic encephalopathy, negative cultures so far. 2. History of clinical sepsis, 3. Atrial fibrillation. 4. Diabetes. 5. History of coronary artery disease. 6. Hypertension. 7. Recent duodenal bulb ulcer. 8. History of chronic obstructive pulmonary disease with no bronchospasm at this time. PLAN: Continue supportive care. Probably a candidate to move to the Critical Care Unit tomorrow in my opinion. Job ID: [id number] MTDD
[2019-06-14 08:22] LABS: Vancomycin, Random 18.9 ug/mL (See Comment)
[2019-06-14] MEDS: Famotidine 20 MG TAB PO SCH (08:57)
[2019-06-14] MEDS: Piperacillin/Tazobactam 2.25 GM in Sodium Chloride 0.9% 100 ML IVPB SCH ×2 (08:57→21:17)
[2019-06-14 13:16] VITALS: BMI 38.9
--- NOTE | 2019-06-14 15:13 | PQF ---
CLINICAL DOCUMENTATION IMPROVEMENT CLARIFICATION FORM: ICD-10 Updated PLEASE DO AN ADDENDUM TO THE PROGRESS NOTE WITH ANY DOCUMENTATION UPDATES OR ADDITIONS AND CARRY THROUGH TO DC SUMMARY. THANK YOU. DATE: 06/14/19 ATTN: DR. YU Please exercise your independent, professional judgment in responding to the clarification form. Clinical indicators are provided on the bottom of this form for your review Please check appropriate box(s) to clarify if the following diagnosis has been ruled in or ruled out: "SEPSIS" [ ] Ruled in diagnosis [ ] Continue to treat [ ] Resolved [ x ] Ruled out diagnosis [ ] Cannot rule out diagnosis [ ] Other diagnosis [ ] Unable to determine In addition, please specify: Present on Admission (POA): [ ] Yes [ x ] No [ ] Unable to determine For continuity of documentation, please document condition throughout progress notes and discharge summary. Thank You. CLINICAL INDICATORS - SIGNS / SYMPTOMS / LABS / RESULTS AND LOCATION IN MR ER NOTE 06/11: "SEPSIS" BP 90/51 PULSE 115 LACTIC ACID 06/11: 3.5 H&P 06/11: "SEPSIS, UNCLEAR ETIOLOGY AT THIS POINT" RISKS: H/O SEPSIS (PROGRESS NOTE-BENDER 06/13) H/O ESRD (H&P 06/11) H/O COPD (PROGRESS NOTE-BENDER 06/13) H/O DIABETES (H&P 06/11) TREATMENT: IV LEVOPHED (ER) IV FLUIDS (ER) IV VANCOMYCIN (ER-PRESENT) IV CEFEPIME (ER) IV ZOSYN (06/11-PRESENT) PROAMATINE (ORDERED 06/13) BLOOD CULTURES 06/11 IMCU MONITORING (This form is maintained as a part of the permanent medical record) 2014 [email or web address], [employer]. All Rights Reserved [email or web address] Office: [phone] [facility]
--- NOTE | 2019-06-14 19:15 | PDOC.HOSPP ---
- Subjective Encounter Date: 06/14/19 Encounter Time: 19:05 Subjective: f/u for hypotension, encephalopathy and suspected sepsis however all cx negative. Feels ok overall and no new events noted. - Objective Vital Signs & Weight: Vital Signs (12 hours) Temp Pulse Pulse BP BP Pulse Ox 06/14/19 13:50 101 H 91 109/56 L 113/48 L 06/14/19 11:23 97.8 F 06/14/19 08:00 98 06/14/19 07:38 98.6 F Weight Admit Weight 264 lb 1.82 oz Weight 271 lb 8 oz Most Recent Monitor Data Heart Rate from ECG 103 NIBP 154/71 NIBP BP-Mean 98 Respiration from ECG 12 SpO2 95 I&O: 06/13/19 06/14/19 06/15/19 06:59 06:59 06:59 Intake Total 850 470 Output Total 0 Balance 850 470 Result Diagrams: 06/14/19 03:20 06/14/19 03:20 Additional Labs: Accuchecks 06/14/19 06/14/19 06/14/19 16:42 10:40 06:11 POC Glucose 90 108 99 06/13/19 19:52 POC Glucose 110 Microbiology 06/11/19 15:44 Venous blood - Right Hand Blood Culture - Preliminary Specimen has been received and culture in progress. No Growth to date. 06/11/19 15:23 Venous blood - Right Hand Blood Culture - Preliminary Specimen has been received and culture in progress. No Growth to date. Laboratory Tests 05/16/19 05/17/19 05/18/19 04:24 03:37 04:14 Hgb INR 3.4 3.3 3.0 Lactic Acid Troponin I B-Natriuretic Peptide Random Vancomycin 05/18/19 05/19/19 05/19/19 04:14 09:00 09:00 Hgb 8.9 L 8.7 L INR 2.5 Lactic Acid Troponin I B-Natriuretic Peptide Random Vancomycin 05/20/19 05/20/19 05/20/19 04:17 04:17 04:17 Hgb 9.5 L 9.5 L INR 2.2 Lactic Acid Troponin I B-Natriuretic Peptide Random Vancomycin 05/21/19 05/21/19 06/11/19 09:12 09:12 15:10 Hgb 9.7 L INR 1.8 Lactic Acid Troponin I 0.089 H B-Natriuretic Peptide Random Vancomycin 06/11/19 06/11/19 06/11/19 15:10 15:23 16:44 Hgb 10.3 L INR Lactic Acid 3.5 H Troponin I B-Natriuretic Peptide 86.5 Random Vancomycin 06/11/19 06/11/19 06/11/19 16:45 17:51 21:05 Hgb INR Lactic Acid 2.1 Troponin I 0.086 H 0.070 H B-Natriuretic Peptide Random Vancomycin 06/11/19 06/11/19 06/12/19 21:06 21:56 01:38 Hgb 10.8 L 9.8 L INR Lactic Acid Troponin I 0.091 H B-Natriuretic Peptide Random Vancomycin 06/12/19 06/12/19 03:39 08:18 Hgb 9.9 L INR Lactic Acid Troponin I B-Natriuretic Peptide Random Vancomycin 12.3 EKG Reviewed by me: Yes (Tele - SR) Hospitalist ROS - Medication Medications: Active Medications Generic Name Dose Route Start Last Admin Trade Name Freq PRN Reason Stop Dose Admin Acetaminophen 650 mg 06/11/19 18:43 06/14/19 06:35 Tylenol PO 650 mg Q4H PRN Administration Headache/Fever/Mild Pain (1-3) Diphenhydramine HCl 25 mg 06/13/19 15:12 06/14/19 02:29 Benadryl PO 25 mg Q6H PRN Administration Itching & Insomnia Famotidine 20 mg 06/14/19 09:00 06/14/19 08:57 Pepcid PO 20 mg DAILY JOSE LUIS Administration Piperacillin Sod/Tazobactam 100 mls @ 200 mls/hr 06/11/19 21:00 06/14/19 08: 57 Sod 2.25 gm/ Sodium Chloride IVPB 100 mls Q12HR JOSE LUIS Administration Vancomycin HCl 1 gm/ Device 200 mls @ 200 mls/hr 06/12/19 09:00 06/12/19 15: 21 IVPB 200 mls WILLCALL JOSE LUIS Administration Sodium Chloride 10 ml 06/11/19 21:00 06/14/19 08:58 Flush - Normal Saline IVF 10 ml Q12HR JOSE LUIS Administration Tramadol HCl 50 mg 06/12/19 15:13 06/14/19 02:29 Ultram PO 50 mg Q6H PRN Administration Pain - Exam General Appearance: NAD, awake alert Eye: PERRL, anicteric sclera ENT: normocephalic atraumatic, no oropharyngeal lesions Neck: supple, symmetric, no JVD, no thyromegaly Heart: RRR, no murmur, no gallops, no rubs Respiratory: CTAB, no wheezes, no rales, no ronchi Gastrointestinal: soft, non-tender, non-distended, normal bowel sounds Extremities: no cyanosis, no clubbing, 1+ LE edema Skin: normal turgor Skin - other findings: L buttock with 2cm firm nodule without purulence Neurological: cranial nerve grossly intact, no new deficit Musculoskeletal: normal tone, generalized weakness Psychiatric: normal affect, A&O x 3 Hosp A/P (1) Acute metabolic encephalopathy Code(s): G93.41 - METABOLIC ENCEPHALOPATHY Status: Acute Plan: Resolving, likely multifactorial (2) Hypotension Status: Acute Plan: Resolved (3) Anemia Code(s): D64.9 - ANEMIA, UNSPECIFIED Status: Chronic Qualifiers: Anemia type: unspecified type Qualified Code(s): D64.9 - Anemia, unspecified Plan: Stable currently, serial H/H (4) ESRD (end stage renal disease) on dialysis Code(s): N18.6 - END STAGE RENAL DISEASE; Z99.2 - DEPENDENCE ON RENAL DIALYSIS Status: Chronic Plan: HD per Renal service - Plan continue antibiotics, PT/OT, social worker masters, respiratory therapy, out of bed/ ambulate, DVT proph w/SCDs Continue supportive mgmt HD per Renal service Hold all antihypertensives another 24h D/C Midodrine CM for SNF options Consult Gen Surgery for small L buttock nodule Transfer to telemetry unit AM lab: H/H, BMP
[2019-06-15] MEDS: Acetaminophen 325 MG TAB PO PRN ×2 (08:54→20:34)
[2019-06-15] MEDS: Piperacillin/Tazobactam 2.25 GM in Sodium Chloride 0.9% 100 ML IVPB SCH ×2 (08:54→20:34)
[2019-06-15] MEDS: diphenhydrAMINE 25 MG CAP PO PRN ×2 (08:54→20:34)
[2019-06-15] MEDS: Famotidine 20 MG TAB PO SCH (08:54)
[2019-06-15] MEDS ORDERED: Lidocaine 1% w/Epinephrine 1:100K 20 ML VIAL ONE (16:00)
--- NOTE | 2019-06-15 19:21 | PDOC.HOSPP ---
- Subjective Encounter Date: 06/15/19 Encounter Time: 19:00 Subjective: f/u for encephalopathy, hypotension now resolved. Initial concern for sepsis but all cx remain negative. Awaiting SNF options/approval. s/p I&D of L buttock abscess this am. - Objective Vital Signs & Weight: Vital Signs (12 hours) Temp Pulse Pulse BP BP Pulse Ox Pulse Ox 06/15/19 15:59 98.2 F 06/15/19 11:27 98.6 F 06/15/19 08:58 95 95 128/77 161/77 H 97 06/15/19 08:07 98.2 F 06/15/19 07:41 96 Pulse Ox 06/15/19 15:59 06/15/19 11:27 06/15/19 08:58 97 06/15/19 08:07 06/15/19 07:41 Weight Admit Weight 264 lb 1.82 oz Weight 271 lb 8 oz Most Recent Monitor Data Heart Rate from ECG 104 NIBP 169/73 NIBP BP-Mean 105 Respiration from ECG 15 SpO2 96 I&O: 06/14/19 06/15/19 06/16/19 06:59 06:59 06:59 Intake Total 470 Balance 470 Result Diagrams: 06/14/19 03:20 06/14/19 03:20 Additional Labs: Accuchecks 06/15/19 06/15/19 06/15/19 16:46 10:43 06:09 POC Glucose 135 H 102 96 06/14/19 20:00 POC Glucose 124 H Microbiology 06/11/19 15:44 Venous blood - Right Hand Blood Culture - Preliminary Specimen has been received and culture in progress. No Growth to date. 06/11/19 15:23 Venous blood - Right Hand Blood Culture - Preliminary Specimen has been received and culture in progress. No Growth to date. Laboratory Tests 05/16/19 05/17/19 05/18/19 04:24 03:37 04:14 Hgb INR 3.4 3.3 3.0 Lactic Acid Troponin I B-Natriuretic Peptide Random Vancomycin 05/18/19 05/19/19 05/19/19 04:14 09:00 09:00 Hgb 8.9 L 8.7 L INR 2.5 Lactic Acid Troponin I B-Natriuretic Peptide Random Vancomycin 05/20/19 05/20/19 05/20/19 04:17 04:17 04:17 Hgb 9.5 L 9.5 L INR 2.2 Lactic Acid Troponin I B-Natriuretic Peptide Random Vancomycin 05/21/19 05/21/19 06/11/19 09:12 09:12 15:10 Hgb 9.7 L INR 1.8 Lactic Acid Troponin I 0.089 H B-Natriuretic Peptide Random Vancomycin 06/11/19 06/11/19 06/11/19 15:10 15:23 16:44 Hgb 10.3 L INR Lactic Acid 3.5 H Troponin I B-Natriuretic Peptide 86.5 Random Vancomycin 06/11/19 06/11/19 06/11/19 16:45 17:51 21:05 Hgb INR Lactic Acid 2.1 Troponin I 0.086 H 0.070 H B-Natriuretic Peptide Random Vancomycin 06/11/19 06/11/19 06/12/19 21:06 21:56 01:38 Hgb 10.8 L 9.8 L INR Lactic Acid Troponin I 0.091 H B-Natriuretic Peptide Random Vancomycin 06/12/19 06/12/19 03:39 08:18 Hgb 9.9 L INR Lactic Acid Troponin I B-Natriuretic Peptide Random Vancomycin 12.3 EKG Reviewed by me: Yes (Tele - SR) Hospitalist ROS - Medication Medications: Active Medications Generic Name Dose Route Start Last Admin Trade Name Freq PRN Reason Stop Dose Admin Acetaminophen 650 mg 06/11/19 18:43 06/15/19 08:54 Tylenol PO 650 mg Q4H PRN Administration Headache/Fever/Mild Pain (1-3) Diphenhydramine HCl 25 mg 06/13/19 15:12 06/15/19 08:54 Benadryl PO 25 mg Q6H PRN Administration Itching & Insomnia Famotidine 20 mg 06/14/19 09:00 06/15/19 08:54 Pepcid PO 20 mg DAILY JOSE LUIS Administration Piperacillin Sod/Tazobactam 100 mls @ 200 mls/hr 06/11/19 21:00 06/15/19 08: 54 Sod 2.25 gm/ Sodium Chloride IVPB 100 mls Q12HR JOSE LUIS Administration Vancomycin HCl 1 gm/ Device 200 mls @ 200 mls/hr 06/12/19 09:00 06/12/19 15: 21 IVPB 200 mls WILLCALL JOSE LUIS Administration Sodium Chloride 10 ml 06/11/19 21:00 06/15/19 08:54 Flush - Normal Saline IVF 10 ml Q12HR JOSE LUIS Administration Tramadol HCl 50 mg 06/12/19 15:13 06/14/19 02:29 Ultram PO 50 mg Q6H PRN Administration Pain - Exam General Appearance: NAD, awake alert Eye: PERRL, anicteric sclera ENT: normocephalic atraumatic, no oropharyngeal lesions Neck: supple, symmetric, no JVD, no thyromegaly Heart: RRR, no gallops, no rubs, normal peripheral pulses Respiratory: CTAB, no wheezes, no rales, no ronchi Gastrointestinal: soft, non-tender, non-distended, normal bowel sounds Extremities: no cyanosis, 1+ LE edema Skin: normal turgor Neurological: cranial nerve grossly intact, no new deficit Musculoskeletal: normal tone, generalized weakness Psychiatric: normal affect, A&O x 3 Hosp A/P (1) Acute metabolic encephalopathy Code(s): G93.41 - METABOLIC ENCEPHALOPATHY Status: Acute Plan: Multifactorial, improved and resolving (2) Hypotension Status: Acute Plan: Resolved, continue serial BP monitoring (3) Anemia Code(s): D64.9 - ANEMIA, UNSPECIFIED Status: Chronic Qualifiers: Anemia type: unspecified type Qualified Code(s): D64.9 - Anemia, unspecified Plan: Secondary to CKD, stable H/H currently (4) ESRD (end stage renal disease) on dialysis Code(s): N18.6 - END STAGE RENAL DISEASE; Z99.2 - DEPENDENCE ON RENAL DIALYSIS Status: Chronic Plan: HD per Renal service (5) Abscess of buttock, left Code(s): L02.31 - CUTANEOUS ABSCESS OF BUTTOCK Status: Acute Plan: s/p I&D 06/15/19, local [facility], await final cx results, continue Zosyn - Plan continue antibiotics, PT/OT, manager social responsibility, respiratory therapy, DVT proph w/ SCDs Continue supportive mgmt HD per Renal service Hold all antihypertensives another 24h D/C Midodrine CM for SNF options Appreciate Gen Surgery assistance Transfer to telemetry unit
--- NOTE | 2019-06-15 20:33 | CON ---
DATE OF CONSULTATION: HISTORY OF PRESENT ILLNESS: Mr. Alexander is admitted for a sepsis and hypotension. He has improved and recovered and discovered to have a left buttock abscess. I have been asked to see him regarding this. Mr. Alexander has end-stage renal disease with functional left upper arm fistula. I first met him in 2000 where he had placement of a dialysis catheter and subsequent establishment of a left upper arm fistula. In 2011, he had a subtotal parathyroidectomy for secondary hyperparathyroidism that I performed. This admission, his calcium is 7.2, reflecting long-standing control. His left upper arm fistula is still functioning. PHYSICAL EXAMINATION: Exam reveals left buttock abscess and area of induration. ASSESSMENT AND PLAN: Left buttock abscess. We will plan bedside drainage. Job ID: [id number]
[2019-06-16] MEDS: Acetaminophen 325 MG TAB PO PRN (09:22)
[2019-06-16] MEDS: Famotidine 20 MG TAB PO SCH (09:22)
[2019-06-16] MEDS: diphenhydrAMINE 25 MG CAP PO PRN (09:22)
[2019-06-16] MEDS: Piperacillin/Tazobactam 2.25 GM in Sodium Chloride 0.9% 100 ML IVPB SCH (09:23)
--- NOTE | 2019-06-16 09:51 | OP ---
DATE OF PROCEDURE: 06/12/2019 PREOPERATIVE DIAGNOSIS: Left buttock abscess. PROCEDURES PERFORMED: Incision and drainage of left buttock abscess. ANESTHESIA: 1% Xylocaine with epinephrine. DESCRIPTION OF PROCEDURE: The patient at bedside, in the CU. His left buttock was prepared with alcohol and 1% Xylocaine with epinephrine was infiltrated in the skin and subcutaneous tissue and a 4 cm skin incision made unroofing a large abscess, drained copious amounts of purulent foul-smelling material. Loculations were broken down. The patient tolerated the procedure fairly well. Gauze dressings packed. Wound left open for healing by secondary intention. Wound should be dealt with daily washing with soap and water in the bath or shower and applying a saline wet-to-dry dressing. Wound Care will assume care tomorrow. I will see him as needed in this hospitalization course and see him as an outpatient to follow this wound. Job ID: [id number]
[2019-06-16 11:34] LABS: Vancomycin, Random 16.9 ug/mL (See Comment)
[2019-06-16 12:16] VITALS: BP 168/77
[2019-06-16 15:13] VITALS: TEMP 97
--- NOTE | 2019-06-17 03:41 | DIS ---
DATE OF ADMISSION: 06/11/2019 DATE OF DISCHARGE: 06/16/2019 FINAL DIAGNOSES: 1. Possible sepsis. 2. Abscess of the left buttock, status post incision and drainage. 3. End-stage renal disease, on dialysis 3 times a week. 4. Anemia secondary to chronic kidney disease. 5. Acute metabolic encephalopathy, resolved. 6. Hypotension, most likely related to sepsis. CONSULTANTS: 1. Dr. Olvin Liu, Pulmonary/Critical Care. 2. Dr. Fabricio Hudson, General Surgery. PROCEDURE: Incision and drainage of the left buttock abscess. HOSPITAL COURSE: The patient is a 68-year-old male, who was admitted to the hospital with generalized weakness and fall. Apparently, he was brought to the emergency room and was found to have blood pressure of 80/40. He denied any fever, chills, nausea, vomiting, or diarrhea. Denied any chest tightness. Apparently, he was discharged from the hospital on the 23 of May, when he was diagnosed with Streptococcal bacteremia. Also, he developed atrial fibrillation at this time, and Cardiology was consulted and the patient was seen by manufacturing lab technician, who did EGD for upper GI bleed. This was done with injection of epinephrine and hemoclips x2. So, at this time, anticoagulation was not started for his atrial fibrillation because of the bleeding during this emergency room evaluation. Prior to this hospitalization, his lactic acid was 2.1, white count was 7.0, hemoglobin was 10.3, and hematocrit was 31.0. He did not have left shift. A CT angiogram was done to rule out PE and this was negative. His creatinine was up to 7.14. Initially, lactic acid was 3.5. He was treated for possible sepsis with broad-spectrum antibiotics and IV fluids. He was placed on Zosyn and vancomycin. He was seen by Dr. Liu for Critical Care consultation. He recommended to continue antibiotics, but cultures x2 came back negative. Clinically, he improved gradually. Subsequently, he was seen by general surgeon, who incised his left buttock abscess and drained purulent liquid from the left buttock. His vitals improved. We do not have any evidence that the specimen from the left buttock was sent out to the Microbiology, at least nothing is posted yet. As clinically he is doing well and he is approved for detention facility to go there and get physical therapy and occupational therapy, the case was discussed with Dr. King, who saw him during the previous hospitalization and he recommended to start him on Levaquin 500 mg once a day for the next 2 weeks along with metronidazole 250 mg 3 times a day for the next 2 weeks and vancomycin based on random vancomycin level checked during dialysis and treated according to the sliding scale. Also, the patient is going to be on MiraLAX, pantoprazole, metoprolol tartrate, DuoNebs p.r.n. as needed, Benadryl p.r.n. as needed, bisacodyl p.r.n. as needed, artificial tear drops as needed, Tylenol as needed, warfarin 3 mg once a day, Pregabalin, hydrocodone 10/325 mg q.8 hours p.r.n. as needed, and famotidine 20 mg as needed. FOLLOWUP: He is going to follow up with the primary care physician in 1 week. He will get PT and OT in the detention facility, and he will follow up with Dr. Hudson in the next 2 to 3 weeks. We will get his lab, which is going to include BMP and CBC in 1 week and he will get some wound care while in the detention facility for his left buttock. Job ID: [id number]
--- NOTE | 2019-06-17 05:00 | PQF ---
ANA PENNY ZBIGNIEW A MD [id number] [facility]- B01 [id number] CLINICAL DOCUMENTATION CLARIFICATION FORM: POST DISCHARGE Addendum to original discharge summary date: ____ Late entry note date: __ DATE: 06/17/2019 ATTN:LASHONDA PACHECO MD Please exercise your independent, professional judgment in responding to the clarification form. Clinical indicators are provided on the bottom of this form for your review Please check appropriate box(s): Conflicting documentation was noted in the Medical Record, please clarify if patient is being treated/monitored for: [ x ] Sepsis [ ] Sepsis ruled out [ ] Other diagnosis [ ] Unable to determine For continuity of documentation, please document condition throughout progress notes and discharge summary. Thank You. CLINICAL INDICATORS - SIGNS / SYMPTOMS/ LABS - Possible sepsis- DS, 06/16, LASHONDA PACHECO MD - Hypotension, most likely related to sepsis-- DS, 06/16, LASHONDA PACHECO MD - Sepsis- Ruled out diagnosis- Query response, 06/14, David Cuevas DO - Sepsis unclear etiology at this point- -H&P, 06/11, Ana Hollis MD - very hypotensive and he is tachycardic, elevated lactic acid-H&P, 06/11, Ana Hollis MD RISK FACTORS - Acute metabolic encephalopathy- DS, 06/16, LASHONDA PACHECO MD - Abscess of the left buttock- DS, 06/16, LASHONDA PACHECO MD TREATMENT - Vancomycin.IV- AUG, 06/11 - Zosyn.IV-MAR, 06/11 (This form is maintained as a part of the permanent medical record) 2014 [employer]. All Rights Reserved Barbara Chavez [not provided] [not provided] MTDD
== END 2019-06-16 17:58 | DRG 853 ==
LOC: ERS 14:39 → IMCU/EMU 21:31
PROVIDERS: ADMIT Internal Medicine; ATTEND Internal Medicine
PROC: 0J990ZZ Drainage of Buttock Subcutaneous Tissue and Fascia, Open Approach (ICD-10-PCS; principal; 2019-06-12)
DX: A41.9 Sepsis, unspecified organism (principal); G93.41 Metabolic encephalopathy; N18.6 End stage renal disease; L02.31 Cutaneous abscess of buttock; I13.2 Hypertensive heart and chronic kidney disease with heart failure and with stage 5 chronic kidney disease, or end stage renal disease; E87.2 Acidosis; I95.9 Hypotension, unspecified; D63.1 Anemia in chronic kidney disease; F17.210 Nicotine dependence, cigarettes, uncomplicated; G89.29 Other chronic pain; E11.22 Type 2 diabetes mellitus with diabetic chronic kidney disease; J44.9 Chronic obstructive pulmonary disease, unspecified; I25.10 Atherosclerotic heart disease of native coronary artery without angina pectoris; W01.0XXA Fall on same level from slipping, tripping and stumbling without subsequent striking against object, initial encounter; I50.9 Heart failure, unspecified; Z86.718 Personal history of other venous thrombosis and embolism; Z99.2 Dependence on renal dialysis; Z79.01 Long term (current) use of anticoagulants; I25.2 Old myocardial infarction; Z99.3 Dependence on wheelchair
CPT/HCPCS: 36415; 36416; 70481; 71045; 71275; 80048; 80053; 80202; 82553; 83605; 83690; 83735; 83880; 84484; 85014; 85018; 85025; 85049; 85610; 85730; 86850; 86900; 86901; 87040; 93005; 96361; 96365; 96375; C9113; J0692; J2543; J3370; J3490; J7050; Q0163; Q9967

== ENCOUNTER 2019-09-05 11:59 | Emergency (ER) | payer MEDICARE ==
[2019-09-05 12:48] LABS: #Eosinphils 0.2 thou/uL (0.0-0.7); #Lymphocytes 1.5 thou/uL (1.20-3.40); #Monocytes 0.4 thou/uL (0.11-0.59); #Neutrophils 4.8 thou/uL (1.40-6.50); %Basophils 0.3 % (0.0-1.0); %Eosinophils 3.1 % (0.0-10.0); %Lymphocytes 21.9 % (21.0-51.0); %Monocytes 6.3 % (0.0-10.0); %Neutrophils 68.5 % (42.0-75.0); Mean Corpuscular HGB CONC 32.6 g/dL (32.0-36.0); Mean Corpuscular Hemoglobin 31.3 pg (27.0-31.0); Mean Corpuscular Volume 96.2 fL (78.0-98.0); Mean Platelet Volume 8.7 fL (7.4-10.4); Platelet Count 153 thou/uL (130-400); RBC Distribution Width 13.6 % (11.5-14.5); Red Blood Cell (RBC) Count 4.78 mill/uL (4.70-6.10); White Blood Cell (WBC) Count 6.9 thou/uL (4.8-10.8)
[2019-09-05 13:24] LABS: ALT (SGPT) 9 U/L (8-55); AST (SGOT) 18 U/L (5-34); Albumin 3.1 g/dL (3.4-4.8); Alkaline Phosphatase 89 U/L (40-110); Anion Gap 16 mmol/L (10-20); BUN (Urea Nitrogen) 24 mg/dL (8.4-25.7); Bilirubin, Total 0.3 mg/dL (0.2-1.2); Calc. Creatinine Clearance 0 mL/min (70-130); Calcium 7.8 mg/dL (7.8-10.44); Carbon Dioxide 25 mmol/L (23-31); Chloride 97 mmol/L (98-107); Estimated GFR-MDRD 10; Globulin 5.7 g/dL (2.4-3.5); Glucose 161 mg/dL (80-115); Potassium 4.1 mmol/L (3.5-5.1); Protein, Total 8.8 g/dL (5.8-8.1); Sodium 134 mmol/L (136-145)
--- NOTE | 2019-09-05 13:38 | RAD ---
XR Chest 1 View Portable History: Mid low back pain Comparison: Radiograph 2019 Findings: Lungs are clear. No pneumothorax. No effusion. Left subclavian and axillary vascular stent is unchanged. No acute osseous abnormality. Impression: No acute intrathoracic abnormality.
[2019-09-05 13:41] LABS: CKMB 2.2 ng/mL (0-6.6)
== END 2019-09-05 16:07 | disposition home or self-care (01) ==
LOC: ERS 11:59
DX: M54.5 Low back pain (principal); Z76.5 Malingerer [conscious simulation]; I25.2 Old myocardial infarction; E11.9 Type 2 diabetes mellitus without complications; F17.210 Nicotine dependence, cigarettes, uncomplicated; I12.0 Hypertensive chronic kidney disease with stage 5 chronic kidney disease or end stage renal disease; N18.6 End stage renal disease
CPT/HCPCS: 36415; 71045; 80053; 82553; 84484; 85025; 93005

== ENCOUNTER 2019-09-20 12:42 | Emergency (ER) | payer MEDICARE ==
[2019-09-20] MEDS ORDERED: Morphine 4 MG/ML VIAL ONE ×2 (14:21)
--- NOTE | 2019-09-20 14:53 | CT ---
LUMBAR SPINE CT SCAN WITHOUT IV CONTRAST: HISTORY: Low back pain. COMPARISON: 01/05/2012. FINDINGS: There are extensive destructive changes of the L3 and L4 vertebral bodies primarily at the level of t he disks, most marked at L3-L4 level. This does show some progression from the prior 2011 study. Ad ditionally, there are some circumscribed lytic changes within the upper S1 level and in some of the p osterior elements in the periarticular regions. This is nonspecific, but possibilities including namita t of sequelae from amyloid deposition in a patient on dialysis as well as renal osteodystrophy and in fectious processes including diskitis and osteomyelitis. Multilevel disk-osteophytosis and facet arthrosis. No evidence for acute fracture or dislocation. T12-L1 disk level is unremarkable. L1-L2 disk level: Mild disk bulging without significant associated stenosis. L2-L3 disk level: Disk-osteophytosis with moderate canal, lateral recess, and foraminal stenosis. L3-L4 disk: Severe disk bulging with severe central canal, lateral recess, and foraminal stenosis. L4-L5 disk: Severe disk-osteophytosis with central canal, lateral recess, and foraminal stenosis. L5-S1 disk: Generalized bulging with moderate foraminal stenosis. There are numerous cysts noted wi thin the incompletely visualized kidneys concerning for adult polycystic kidney disease. IMPRESSION: 1. No evidence for acute fracture or dislocation. 2. Variable severity canal, lateral recess, and foraminal stenosis at multiple levels. 3. Some progressive peridiskal bony destructive changes most marked at L3-L4 and L4-L5 levels showin g some progression from the prior 2011 study. Other findings as above. POS: RRE
== END 2019-09-20 16:11 | disposition home or self-care (01) ==
LOC: ERS 12:42
DX: M54.5 Low back pain (principal); E11.22 Type 2 diabetes mellitus with diabetic chronic kidney disease; I12.0 Hypertensive chronic kidney disease with stage 5 chronic kidney disease or end stage renal disease; N18.6 End stage renal disease; F17.210 Nicotine dependence, cigarettes, uncomplicated; Z99.2 Dependence on renal dialysis; Z79.899 Other long term (current) drug therapy
CPT/HCPCS: 72131; 96372; J2270

== ENCOUNTER 2019-10-07 15:43 | Inpatient (IN) | payer MEDICARE ==
--- NOTE | 2019-10-07 16:29 | RAD ---
AP PELVIS: 10/07/19 HISTORY: Fall. COMPARISON: Prior pelvic exam from 2011. The bony pelvis appears intact. Hips appear intact. IMPRESSION: No acute fracture identified. POS: AGW
[2019-10-07 16:31] LABS: #Eosinphils 0.2 thou/uL (0.0-0.7); #Lymphocytes 1.4 thou/uL (1.20-3.40); #Monocytes 0.6 thou/uL (0.11-0.59); #Neutrophils 5.4 thou/uL (1.40-6.50); %Basophils 0.2 % (0.0-1.0); %Eosinophils 2.5 % (0.0-10.0); %Lymphocytes 17.8 % (21.0-51.0); %Monocytes 7.3 % (0.0-10.0); %Neutrophils 72.1 % (42.0-75.0); Mean Corpuscular HGB CONC 33.3 g/dL (32.0-36.0); Mean Corpuscular Hemoglobin 31.8 pg (27.0-31.0); Mean Corpuscular Volume 95.3 fL (78.0-98.0); Mean Platelet Volume 8.4 fL (7.4-10.4); Platelet Count 138 thou/uL (130-400); Red Blood Cell (RBC) Count 4.72 mill/uL (4.70-6.10); White Blood Cell (WBC) Count 7.5 thou/uL (4.8-10.8)
[2019-10-07 16:54] LABS: Anion Gap 12 mmol/L (10-20); BUN (Urea Nitrogen) 26 mg/dL (8.4-25.7); Calc. Creatinine Clearance 0 mL/min (70-130); Calcium 8.6 mg/dL (7.8-10.44); Carbon Dioxide 28 mmol/L (23-31); Chloride 95 mmol/L (98-107); Estimated GFR-MDRD 11; Glucose 119 mg/dL (80-115); Potassium 4.3 mmol/L (3.5-5.1); Sodium 131 mmol/L (136-145)
--- NOTE | 2019-10-07 16:56 | CT ---
CT HEAD WITHOUT CONTRAST: 10/07/19 COMPARISON: 05/20/19. HISTORY: Weakness. TECHNIQUE: Axial CT imaging obtained at 5 mm intervals from the vertex through the skull base without contrast. FINDINGS: The visualized paranasal sinuses and mastoid air cells are well aerated. There is no displaced calvar ial fracture, intracranial hemorrhage, midline shift, or mass effect. IMPRESSION: No intracranial hemorrhage or displaced calvarial fracture. POS: MIRELLA
--- NOTE | 2019-10-07 17:14 | CT ---
CT LUMBAR SPINE WITHOUT CONTRAST: 10/07/19 INDICATION: Fall. Back pain. Comparison made to recent CT lumbar spine 09/20/19. That exam revealed destructive changes involving the L3 and L4 vertebrae, most pronounced at L4 with some end plate erosive change at L4-5. Changes at L3, L4 and L5 are stable. The other lumbar vertebra e maintain height. There are lytic lesions seen throughout the visualized vertebrae consistent with metastatic involvement. Moderate central canal stenosis at L2-3. Severe central canal stenosis at L3-4 again noted. Severe central canal stenosis at L4-5 again noted. IMPRESSION: Evidence of osseous metastatic disease. Destructive changes at L3, L4, and L5 most pronounced involvi ng the L4 vertebrae. There is severe central canal stenosis as noted above. The lumbar spine findings have not changed when compared to 09/20/19. POS: AGW
[2019-10-07] MEDS ORDERED: Acetaminophen 325 MG TAB PO PRN (21:03)
[2019-10-07 21:44] VITALS: BMI 38.4
[2019-10-07] MEDS: Morphine 2 MG/ML SYRINGE SLOW IVP PRN (21:56)
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
[2019-10-08] MEDS ORDERED: Bisacodyl 5 MG TAB PO PRN (00:04)
[2019-10-08] MEDS ORDERED: Mag-Al 1200 mg/1200 mg/30 ML UDCUP PO PRN (00:04)
[2019-10-08] MEDS ORDERED: Calcium Carbonate 500 MG ChewTAB PO PRN (00:04)
[2019-10-08] MEDS ORDERED: diphenhydrAMINE 25 MG CAP PO PRN (00:04)
[2019-10-08] MEDS ORDERED: Polyethylene Glycol 3350 17 GM Packet PO PRN (00:04)
[2019-10-08] MEDS ORDERED: Famotidine 20 MG TAB PO PRN (00:04)
[2019-10-08] MEDS ORDERED: Artificial Tears 18 DROP/0.9 ML EA EYE PRN (00:04)
[2019-10-08 05:53] LABS: #Eosinphils 0.2 thou/uL (0.0-0.7); #Lymphocytes 1.2 thou/uL (1.20-3.40); #Monocytes 0.5 thou/uL (0.11-0.59); #Neutrophils 4.8 thou/uL (1.40-6.50); %Basophils 0.3 % (0.0-1.0); %Eosinophils 3.2 % (0.0-10.0); %Lymphocytes 17.5 % (21.0-51.0); %Monocytes 7.6 % (0.0-10.0); %Neutrophils 71.4 % (42.0-75.0); Hemoglobin 14.6 g/dL (14.0-18.0); Mean Corpuscular HGB CONC 33.1 g/dL (32.0-36.0); Mean Corpuscular Hemoglobin 31.4 pg (27.0-31.0); Mean Corpuscular Volume 94.9 fL (78.0-98.0); Mean Platelet Volume 8.9 fL (7.4-10.4); Platelet Count 140 thou/uL (130-400); RBC Distribution Width 12.9 % (11.5-14.5); Red Blood Cell (RBC) Count 4.64 mill/uL (4.70-6.10); White Blood Cell (WBC) Count 6.7 thou/uL (4.8-10.8)
[2019-10-08 06:06] LABS: Anion Gap 16 mmol/L (10-20); BUN (Urea Nitrogen) 31 mg/dL (8.4-25.7); Calc. Creatinine Clearance 17 mL/min (70-130); Carbon Dioxide 27 mmol/L (23-31); Chloride 96 mmol/L (98-107); Estimated GFR-MDRD 10; Glucose 97 mg/dL (80-115); Potassium 4.6 mmol/L (3.5-5.1); Sodium 134 mmol/L (136-145)
[2019-10-08] MEDS: Pregabalin 75 MG CAP PO SCH (09:15)
[2019-10-08] MEDS: Metoprolol Tartrate 25 MG TAB PO SCH ×2 (09:16→19:38)
[2019-10-08] MEDS: Enoxaparin Sodium 30 MG/0.3 ML SYRINGE SC SCH (09:16)
--- NOTE | 2019-10-08 14:37 | PDOC.HOSPP ---
- Subjective Encounter Date: 10/08/19 Subjective: Doing ok. Says his butt hurts. No other complaints. - Objective Vital Signs & Weight: Vital Signs (12 hours) Temp Pulse Resp BP BP Pulse Ox 10/08/19 11:16 98.7 F 86 16 138/76 94 L 10/08/19 07:30 98.3 F 98 16 155/85 H 94 L 10/08/19 03:35 98.6 F 91 18 141/72 H 95 Weight Weight 260 lb Result Diagrams: 10/08/19 04:50 10/08/19 04:50 Hospitalist ROS - Medication Medications: Active Medications Generic Name Dose Route Start Last Admin Trade Name Freq PRN Reason Stop Dose Admin Enoxaparin Sodium 30 mg 10/08/19 09:00 10/08/19 09:16 Lovenox SC 30 mg 0900 JOSE LUIS Administration Metoprolol Tartrate 25 mg 10/08/19 09:00 10/08/19 09:16 Lopressor PO 25 mg BID JOSE LUIS Administration Morphine Sulfate 2 mg 10/07/19 21:18 10/07/19 21:56 Morphine SLOW IVP 2 mg Q4H PRN Administration Moderate to Severe Pain (6-10) Pregabalin 75 mg 10/08/19 09:00 10/08/19 09:15 Lyrica PO 75 mg DAILY JOSE LUIS Administration - Exam General Appearance: NAD, awake alert Heart: RRR, no murmur, no gallops, no rubs, normal peripheral pulses Respiratory: CTAB, no wheezes, no rales, no ronchi, normal chest expansion, no tachypnea, normal percussion Gastrointestinal: soft, non-tender, non-distended, normal bowel sounds, no palpable masses, no hepatomegaly, no splenomegaly, no bruit Extremities: no cyanosis, no clubbing, no edema Extremities - other findings: Some chronic dermatitis of LE's. 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 PT eval pending. Continue pain management. Pending MRI results, consider treatment options and disposition. Looks like mets to the L spine, but other concern would be infection from recent buttock abscess. PSA is normal and lungs are clear on imaging. Had endoscopy in the not too distant past and it was ok.
[2019-10-08] MEDS: Morphine 2 MG/ML SYRINGE SLOW IVP PRN (15:51)
[2019-10-08] MEDS: HYDROcodone/Acetaminophen 10/325 mg Tablet PO PRN (19:37)
[2019-10-09] MEDS: Pregabalin 75 MG CAP PO SCH (08:16)
[2019-10-09] MEDS: Metoprolol Tartrate 25 MG TAB PO SCH ×2 (08:17→20:52)
[2019-10-09] MEDS: Enoxaparin Sodium 30 MG/0.3 ML SYRINGE SC SCH (08:18)
[2019-10-09] MEDS: HYDROcodone/Acetaminophen 10/325 mg Tablet PO PRN ×2 (12:19→20:52)
[2019-10-09] MEDS ORDERED: HYDROcodone/Acetaminophen 7.5/325 mg Tablet PO PRN ×2 (14:21)
[2019-10-09] MEDS ORDERED: Lorazepam 2 MG/ML VIAL SLOW IVP SCH (14:30)
--- NOTE | 2019-10-09 15:13 | PDOC.HOSPP ---
- Subjective Encounter Date: 10/09/19 Subjective: Doing ok. Pain better with meds. - Objective Vital Signs & Weight: Vital Signs (12 hours) Temp Pulse Resp BP BP Pulse Ox 10/09/19 07:58 98.3 F 73 16 134/66 95 10/09/19 05:00 97.9 F 71 20 128/74 94 L Weight Admit Weight 260 lb Weight 260 lb I&O: 10/08/19 10/09/19 10/10/19 06:59 06:59 06:59 Intake Total 270 Output Total 1100 Balance 270 -1100 Result Diagrams: 10/08/19 04:50 10/08/19 04:50 Hospitalist ROS - Medication Medications: Active Medications Generic Name Dose Route Start Last Admin Trade Name Freq PRN Reason Stop Dose Admin Hydrocodone Bitart/Acetaminophen 1 tab 10/08/19 00:04 10/09/19 12:19 [place] 10/325 PO 1 tab Q8H PRN Administration Moderate Pain (4-6) Diphenhydramine HCl 25 mg 10/08/19 00:04 10/09/19 01:07 Benadryl PO 25 mg Q6H PRN Administration Itching & Insomnia Enoxaparin Sodium 30 mg 10/08/19 09:00 10/09/19 08:18 Lovenox SC 30 mg 0900 JOSE LUIS Administration Lorazepam 1 mg 10/09/19 14:30 10/09/19 14:38 Ativan SLOW IVP 10/09/19 18:00 1 mg WILLCALL JOSE LUIS Administration Metoprolol Tartrate 25 mg 10/08/19 09:00 10/09/19 08:17 Lopressor PO 25 mg BID JOSE LUIS Administration Morphine Sulfate 2 mg 10/07/19 21:18 10/08/19 15:51 Morphine SLOW IVP 2 mg Q4H PRN Administration Moderate to Severe Pain (6-10) Pregabalin 75 mg 10/08/19 09:00 10/09/19 08:16 Lyrica PO 75 mg DAILY JOSE LUIS Administration - Exam General Appearance: NAD, awake alert Heart: irregular Respiratory: CTAB, no wheezes, no rales, no ronchi, normal chest expansion, no tachypnea, normal percussion Gastrointestinal: soft, non-tender, non-distended, normal bowel sounds, no palpable masses, no hepatomegaly, no splenomegaly, no bruit Extremities: no cyanosis, no clubbing, no edema Skin: normal turgor Neurological: no focal deficits Musculoskeletal: normal tone Psychiatric: normal affect, normal behavior, A&O x 3 Hosp A/P (1) Malignant neoplasm metastatic to lumbar spine with unknown primary site Code(s): C79.51 - SECONDARY MALIGNANT NEOPLASM OF BONE; C80.1 - MALIGNANT ( PRIMARY) NEOPLASM, UNSPECIFIED Status: Acute (2) History of atrial fibrillation Code(s): Z86.79 - PERSONAL HISTORY OF OTHER DISEASES OF THE CIRCULATORY SYSTEM Status: Acute (3) Chronic anticoagulation Code(s): 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 OF 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 CT L-spine showed metastatic lesions of lumbar vertebrae. Admitted for MRI. MRI of L-spine still pending. PT eval limited by pain. Continue pain management. Pending MRI results, consider treatment options and disposition. Looks like mets to the L spine, but other concern would be infection from recent buttock abscess. PSA is normal and lungs are clear on imaging. Had endoscopy in the not too distant past and it was ok. Continue HD.
--- NOTE | 2019-10-09 16:26 | MRI ---
MRI LUMBAR SPINE WITHOUT CONTRAST: Date: 10-09-2019 Provided Clinical History: Low back pain. FINDINGS: Comparison is made with the CT examinations dated 01-05-12, 09-20-2019 and 10-07-2019. Evaluation is limited by patient motion on the axial sequences. Lumbar alignment remains normal. Vertebral body heights appear preserved. Endplate irregularity and p luis endplate erosive changes are again seen about L4-5 and to a great extent L3-4. The margination of the lytic changes is primarily sclerotic though appearing somewhat less so on the 10-07-2019 CT with respect to the 09-20-2019. These have certainly advanced since the 01-05-2012 study. On the current MR examination there is associated marrow edema type signal change present within the L3, L4 and L5 vert ebral bodies. Regional marrow signal appears otherwise normal. The conus medullaris is normal in sign al and terminates at an appropriate level. There is a diffusely narrow spinal canal on the basis of c ognitively short pedicles. There are multiple renal cysts seen bilaterally suggesting ==== dominant p olycystic kidney disease. There is fatty infiltration involving some of the paraspinal musculature ri ght of midline. At L1-2, there is bilateral facet arthritis without significant central canal or foraminal narrowing apparent. At L2-3, there is a broad based disc bulge and bilateral facet arthritis. There is mild to moderate c entral canal stenosis. There is no significant foraminal narrowing apparent. At L3-4, broad based disc bulge and bilateral facet arthritis are present. There is moderate central canal stenosis and moderate bilateral foraminal narrowing. At L4-5, there is a broad based disc bulge and accompanying osteophyte with bilateral facet arthritis . There is severe right and moderate left foraminal narrowing. There is moderate-severe central canal stenosis. At L5-S1, there is bilateral facet arthritis with a broad based disc bulge. There is no significant c entral canal stenosis. There is mild bilateral foraminal narrowing. IMPRESSION: 1. Erosive changes about the L3-4 and L4-5 intervertebral disc spaces, present for a long period of t [place]by but certainly progressive with respect to the most remote available CT examination of 01-05-2012. 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 A superimposed infectious process could not be excluded on the basis of this st udy given the associated vertebral body marrow edema. 2. 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 POS: DANY
[2019-10-10] MEDS: Enoxaparin Sodium 30 MG/0.3 ML SYRINGE SC SCH (08:37)
[2019-10-10] MEDS: Pregabalin 75 MG CAP PO SCH (08:37)
[2019-10-10] MEDS: Metoprolol Tartrate 25 MG TAB PO SCH ×2 (08:37→19:51)
[2019-10-10] MEDS: HYDROcodone/Acetaminophen 10/325 mg Tablet PO PRN ×2 (08:38→16:57)
[2019-10-10] MEDS ORDERED: Vancomycin Sliding Scale 1 EACH FS ONE (15:30)
[2019-10-10] MEDS ORDERED: Vancomycin HCl 1.25 GM in Sodium Chloride 0.9% 250 ML 250 ML IVPB SCH (15:30)
[2019-10-10] MEDS ORDERED: HOLD VANCOMYCIN FOR LEVEL >20 FS SCH (15:30)
[2019-10-10] MEDS ORDERED: Vancomycin 1 GM in Premix Bag 1 BAG IVPB SCH (15:30)
[2019-10-10] MEDS ORDERED: Vancomycin HCl 750 MG in Sodium Chloride 0.9% 250 ML 250 ML IVPB SCH (15:30)
[2019-10-10] MEDS ORDERED: Vancomycin HCl 1.5 GM in Sodium Chloride 0.9% 250 ML 300 ML IVPB SCH (15:30)
--- NOTE | 2019-10-10 17:17 | PDOC.HOSPP ---
- Subjective Encounter Date: 10/10/19 Encounter Time: 10:30 Subjective: The patient reports back pain, but states it is controlled with hydrocodone. He states it "knocks him out" compared to what he was taking before. He cannot urinate. Has mild tingling in his right leg. Per neurosurgery, they stated outpatient management is appropriate, asked Dr. King to see whether he thought he had discitis. Per Dr. King, agreed to treat as discitis with IV antibiotics - Objective Vital Signs & Weight: Vital Signs (12 hours) Temp Pulse Resp BP Pulse Ox 10/10/19 15:35 97.5 F L 89 18 128/81 98 10/10/19 11:32 97.9 F 74 18 131/63 98 10/10/19 07:27 97.1 F L 72 18 146/67 H 99 Weight Admit Weight 260 lb Weight 260 lb I&O: 10/09/19 10/10/19 10/11/19 06:59 06:59 06:59 Intake Total 270 Output Total 1100 Balance 270 -1100 Result Diagrams: 10/08/19 04:50 10/08/19 04:50 Hospitalist ROS - Review of Systems Constitutional: denies: fever, chills - Medication Medications: Active Medications Generic Name Dose Route Start Last Admin Trade Name Freq PRN Reason Stop Dose Admin Hydrocodone Bitart/Acetaminophen 1 tab 10/08/19 00:04 10/10/19 16:57 [place] 10/325 PO 1 tab Q8H PRN Administration Moderate Pain (4-6) Diphenhydramine HCl 25 mg 10/08/19 00:04 10/09/19 01:07 Benadryl PO 25 mg Q6H PRN Administration Itching & Insomnia Enoxaparin Sodium 30 mg 10/08/19 09:00 10/10/19 08:37 Lovenox SC 30 mg 0900 JOSE LUIS Administration Vancomycin HCl 2 gm/ Sodium 500 mls @ 250 mls/hr 10/10/19 16:00 10/10/19 16: 08 Chloride IVPB 10/10/19 18:00 500 mls NOW JOSE LUIS Administration Metoprolol Tartrate 25 mg 10/08/19 09:00 10/10/19 08:37 Lopressor PO 25 mg BID JOSE LUIS Administration Morphine Sulfate 2 mg 10/07/19 21:18 10/08/19 15:51 Morphine SLOW IVP 2 mg Q4H PRN Administration Moderate to Severe Pain (6-10) Pregabalin 75 mg 10/08/19 09:00 10/10/19 08:37 Lyrica PO 75 mg DAILY JOSE LUIS Administration - Exam General Appearance: NAD, awake alert Eye: PERRL, anicteric sclera ENT: normocephalic atraumatic, no oropharyngeal lesions Neck: supple, no JVD Heart: RRR, no murmur, no gallops, no rubs Respiratory: CTAB, no wheezes, no rales, no ronchi Gastrointestinal: soft, non-tender, non-distended, normal bowel sounds Extremities: no cyanosis, no clubbing, no edema Skin: normal turgor, no lesions, no rashes Musculoskeletal: normal tone, normal strength, no muscle wasting Musculoskeletal - other findings: 5/5 strength in lower extremities, can move all four extremities Psychiatric: normal affect, normal behavior, A&O x 3 Hosp A/P - Plan CT head: no acute disease Pelvic X ray: no acute fracture CT lumbar spine: osseous metastatic disease. Destructive changes at L3, L4, L5 most pronounced involving the L4 vertebra. Severe central canal stenosis. MRI lumbar spine: erosive changes L3-L4 and L4-L5 intervertebral disc spaces. 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 Superimposed infectious process not excluded due to vertebral marrow edema. Multilevel lumbar disc and facet degenreative changes with congenital narrow spinal canal This is a 69 year old male with past medical history of Back pain possibly from discitis - pelvic X ray showed no acute fracture. CT lumbar spine showed metastaic disease. MRI lumbar spine shows erosive changes. Per Dr. King may be discitis - will place PICC line, treat with IV vancomycin sliding scale for 6 weeks until 11/19 - case management consult for rehab. PT recommended home health Hyponatremia - improving to 134 ESRD - patient gets dialysis Wednesday, , Wednesday
[2019-10-11] MEDS: HYDROcodone/Acetaminophen 10/325 mg Tablet PO PRN (07:26)
[2019-10-11] MEDS: Pregabalin 75 MG CAP PO SCH (07:27)
[2019-10-11 08:46] LABS: Vancomycin, Random 15.2 ug/mL (See Comment)
[2019-10-11] MEDS ORDERED: Heparin 10,000 UNITS/ 10 ML VIAL ONE (11:09)
[2019-10-11] MEDS: Enoxaparin Sodium 30 MG/0.3 ML SYRINGE SC SCH (12:34)
[2019-10-11] MEDS: Metoprolol Tartrate 25 MG TAB PO SCH (12:34)
[2019-10-11] MEDS ORDERED: Lidocaine 5% Patch TD SCH ×2 (13:29→13:45)
--- NOTE | 2019-10-11 14:32 | EKG ---
Test Reason : Blood Pressure : / mmHG Vent. Rate : 142 BPM Atrial Rate : 057 BPM P-R Int : 000 ms QRS Dur : 088 ms QT Int : 362 ms P-R-T Axes : 000 -43 062 degrees QTc Int : 556 ms Unusual P axis, possible ectopic atrial tachycardia Left axis deviation Inferior infarct (cited on or before 08-MAY-2019) Abnormal ECG Confirmed by WIN VALDEZ ([id number]) on 10/11/2019 2:32:18 PM Referred By: PRASAD Confirmed By:WIN VALDEZ
[2019-10-11 16:42] VITALS: BP 116/52; TEMP 98.6
[2019-10-11] MEDS ORDERED: Lidocaine Patch Removal 1 EACH TOP SCH (21:00)
[2019-10-12] MEDS ORDERED: Lidocaine 5% Patch TD SCH (09:00)
--- NOTE | 2019-10-12 14:59 | DIS ---
DATE OF ADMISSION: 10/07/2019 DATE OF DISCHARGE: 10/11/2019 DISCHARGE DIAGNOSES: 1. Back pain possibly secondary to diskitis. 2. Severe spinal stenosis. 3. 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 4. Hyponatremia. CONSULTATIONS: None. PROCEDURES: None. BRIEF HISTORY OF PRESENT ILLNESS: This is a 69-year-old male with a past medical history of ESRD and hypertension, who presented to the emergency room due to worsening lower back pain. The patient reported that the pain was radiating down his legs and to his head. He also reported numbness in both legs. Upon presentation to the emergency room, the patient had a CT scan of his brain, which showed no acute disease. He had a CT scan of his lumbar spine, which showed severe spinal stenosis and possible osseous metastatic disease. He had a pelvis x-ray which showed no acute fracture. He was admitted for further workup. HOSPITAL COURSE: Back pain, possibly secondary to diskitis: The patient was resumed on his home narcotics. He did have an MRI done of his lumbar spine, which showed no evidence of metastasis, but possible dialysis related spondyloarthropathy and erosive changes at L3-L4 and L4-L5. A super-infectious process cannot be excluded. I contacted Neurosurgery who recommended contacting Infectious Disease to see whether this could possibly infectious. I had Dr. King from infectious disease look at the MRI of his lumbar spine. He stated that it is possible that this may be infectious given his recent bacteremia in April. It was decided to start him on IV vancomycin, sliding scale. The patient does have a have a port for dialysis and this could be administered through there. He should get vancomycin for 6 weeks until November 19 and have a repeat MRI of his lumbar spine in 4 weeks. He should follow up with Dr. King in 4 weeks. He was seen by Physical Therapy and Case Management, and he was transferred to rehab for further treatment. He was discharged with the lidocaine patch and his home narcotic with adequate control of his pain. Hyponatremia: The patient had a sodium of 131 on admission, which improved to 134 on the day of discharge. ESRD: The patient was continued on his dialysis Wednesday, Wednesday, Wednesday. DISCHARGE PHYSICAL EXAMINATION: VITAL SIGNS: Temperature 98.6, heart rate 76, respiratory rate 16, O2 saturation 97% on room air, and blood pressure 116/52. GENERAL: The patient is alert, awake, oriented x3. CVS: Regular rate and rhythm with no murmurs, rubs, or gallops. LUNGS: Clear to auscultation bilaterally. ABDOMEN: Positive bowel sounds, soft, nontender, nondistended. EXTREMITIES: No edema. EYES: The patient is blind in his right eye. MUSCULOSKELETAL: The patient has no spinal tenderness. He is able to lift up both extremities. He does have 5/5 strength in both extremities. He does have difficulty sitting up in the bed on his own. PERTINENT LABORATORY DATA: CBC 10/07: Unremarkable. BMP 10/07: Sodium 134, potassium 4.6, chloride 96, carbon dioxide 27, BUN 31, creatinine 6.90. IMAGING: CT brain: Shows no acute disease. CT lumbar spine 10/06: Evidence of osseous metastatic disease. Destructive changes at L3, L4, and L5, most pronounced involving the L4 vertebrae. There is severe central canal stenosis. Pelvis x-ray 10/06: Shows no acute fracture. MRI lumbar spine 10/08: Shows erosive changes at L3-L4 and L4-L5 intervertebral disk spaces, but certainly progressive. Superimposed infectious process cannot be excluded due to vertebral body edema. 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 Multilevel lumbar disk and facet degenerative changes in combination with congenitally narrowed spinal canal. DISCHARGE CONDITION: Stable. ACTIVITY: As tolerated. DIET: Renal diet. DISCHARGE MEDICATIONS: New prescriptions: 1. Vancomycin 750 mg IV daily for 6 weeks. Administer per sliding scale. 2. Lidocaine patch one topical patch daily. All other home medications were resumed. Please refer to discharge worksheet. DISCHARGE INSTRUCTIONS: The patient should follow up with his PCP in a week and should have a repeat MRI of his lumbar spine in 4 weeks and follow up with Dr. King from Infectious Disease in 4 weeks. Job ID: [id number] [facility]
--- NOTE | 2019-10-14 09:29 | EKG ---
Test Reason : Blood Pressure : / mmHG Vent. Rate : 086 BPM Atrial Rate : 086 BPM P-R Int : 188 ms QRS Dur : 092 ms QT Int : 400 ms P-R-T Axes : 062 -41 052 degrees QTc Int : 478 ms Normal sinus rhythm Left axis deviation Inferior infarct , age undetermined Abnormal ECG Q wave III Confirmed by CHRIS ANDERSON, OLVIN Hernandez ([id number]), slot editor CHAPIS FRIED ([id number]) on 10/14/2019 9:28:27 AM Referred By: Confirmed By:OLVIN PEREZ MD
== END 2019-10-11 16:42 | DRG 551 ==
LOC: ERS 15:43 → SURG A 19:59 → 2NO 10-09 18:50
PROVIDERS: ADMIT Internal Medicine; ATTEND Internal Medicine
PROC: 5A1D70Z Performance of Urinary Filtration, Intermittent, Less than 6 Hours Per Day (ICD-10-PCS; principal; 2019-10-09)
DX: M46.46 Discitis, unspecified, lumbar region (principal); N18.6 End stage renal disease; E87.1 Hypo-osmolality and hyponatremia; I12.0 Hypertensive chronic kidney disease with stage 5 chronic kidney disease or end stage renal disease; T80.89XA Other complications following infusion, transfusion and therapeutic injection, initial encounter; M47.816 Spondylosis without myelopathy or radiculopathy, lumbar region; Y84.1 Kidney dialysis as the cause of abnormal reaction of the patient, or of later complication, without mention of misadventure at the time of the procedure; M48.061 Spinal stenosis, lumbar region without neurogenic claudication; I25.10 Atherosclerotic heart disease of native coronary artery without angina pectoris; I48.91 Unspecified atrial fibrillation; K59.00 Constipation, unspecified; E11.22 Type 2 diabetes mellitus with diabetic chronic kidney disease; F17.200 Nicotine dependence, unspecified, uncomplicated; I25.2 Old myocardial infarction; Z79.899 Other long term (current) drug therapy; Z99.2 Dependence on renal dialysis
CPT/HCPCS: 36415; 70450; 72131; 72148; 72170; 80048; 80202; 82565; 83880; 84153; 85025; 90935; 93005; 93010; 96360; G0257; J1644; J1650; J2060; J2270; J3370; J7030; J7050; Q0163

== ENCOUNTER 2020-06-27 01:32 | Emergency (ER) | payer MEDICARE ==
[2020-06-27 02:19] LABS: #Basophils 0.1 thou/uL (0.0-0.2); #Eosinphils 0.4 thou/uL (0.0-0.7); #Lymphocytes 2.1 thou/uL (1.20-3.40); #Monocytes 0.6 thou/uL (0.11-0.59); #Neutrophils 3.2 thou/uL (1.40-6.50); %Basophils 1.2 % (0.0-1.0); %Eosinophils 6.6 % (0.0-10.0); %Lymphocytes 32.2 % (21.0-51.0); %Monocytes 9.4 % (0.0-10.0); %Neutrophils 50.7 % (42.0-75.0); Hemoglobin 13.6 g/dL (14.0-18.0); Mean Corpuscular HGB CONC 32.8 g/dL (32.0-36.0); Mean Corpuscular Hemoglobin 32.7 pg (27.0-31.0); Mean Corpuscular Volume 99.5 fL (78.0-98.0); Mean Platelet Volume 8.3 fL (7.4-10.4); Platelet Count 110 thou/uL (130-400); Red Blood Cell (RBC) Count 4.18 mill/uL (4.70-6.10); White Blood Cell (WBC) Count 6.4 thou/uL (4.8-10.8)
[2020-06-27 02:22] LABS: INR-International Normal Ratio 1.2; PTT 34.2 sec (22.9-36.1); Prothrombin Time 15.4 sec (12.0-14.7)
[2020-06-27 02:43] LABS: ALT (SGPT) 17 U/L (8-55); AST (SGOT) 30 U/L (5-34); Albumin 2.7 g/dL (3.4-4.8); Alkaline Phosphatase 68 U/L (40-110); Anion Gap 16 mmol/L (10-20); BUN (Urea Nitrogen) 48 mg/dL (8.4-25.7); Bilirubin, Total 0.4 mg/dL (0.2-1.2); Calc. Creatinine Clearance 0 mL/min (70-130); Calcium 7.3 mg/dL (7.8-10.44); Carbon Dioxide 26 mmol/L (23-31); Chloride 99 mmol/L (98-107); Globulin 5.4 g/dL (2.4-3.5); Glucose 116 mg/dL (80-115); Potassium 4.4 mmol/L (3.5-5.1); Protein, Total 8.1 g/dL (5.8-8.1); Sodium 137 mmol/L (136-145)
--- NOTE | 2020-06-27 08:11 | ULT ---
PRELIMINARY REPORT/DIRECT RADIOLOGY/EMERGENCY AFTER HOURS PROCEDURE: EXAM: US Duplex left Upper Extremity Veins. CLINICAL HISTORY: LT Arm dialysis port shooting blood, patient states bleeding started after scab rem shanda TECHNIQUE: Real-time ultrasound scan of the veins of the left upper extremity with color Doppler flow , spectral waveform analysis and compression. COMPARISON: None provided. FINDINGS: VEINS: The cephalic vein is visualized in the upper arm above the patient's bandages demonstrating no rmal flow with the brachial vein visualized below the bandages also demonstrating normal flow. SOFT TISSUES: No acute finding. Specifically no evidence for hematoma or other fluid collection IMPRESSION: No evidence for thrombus in the cephalic or brachial veins with no evidence for hematoma or seroma ELECTRONICALLY SIGNED BY: Jamie Troncoso MD Jun 27, 2020 2:59:37 AM [employer]INDMI[employer] MECH[employer]IC FINAL REPORT FOCUSED VASCULAR ULTRASOUND OF THE LEFT UPPER EXTREMITY: DATE: 06/27/2020. COMPARISON: None. HISTORY: Dialysis access in the left upper extremity with bleeding. FINDINGS: I agree with the preliminary report. The area of concern within the left upper arm is assessed with D oppler interrogation including color flow and spectral analysis. There is a 2.8 x 2.1 cm vascular structure just deep to the skin in the upper arm region which demons trates turbulent internal multi directional flow, most consistent with a dilated cephalic vein associated with a dialysis fistula. Clinical correlation is essential. No evidence for internal throm bosis. Adjacent vascular structures appear patent. IMPRESSION: Oval structure containing multidirectional blood flow just deep to the skin surface in the area of co ncern likely represents a patent dialysis fistula. Pseudoaneurysm cannot be excluded in the proper clinical setting but this distinction would be based on clinical evaluation and any interval change i n the characteristics of the vascular access. Transcribed Date/Time: 06/27/2020 9:40 AM
== END 2020-06-27 04:37 ==
LOC: ERS 01:32
DX: T82.838A Hemorrhage due to vascular prosthetic devices, implants and grafts, initial encounter (principal); I25.2 Old myocardial infarction; E11.22 Type 2 diabetes mellitus with diabetic chronic kidney disease; I12.0 Hypertensive chronic kidney disease with stage 5 chronic kidney disease or end stage renal disease; N18.6 End stage renal disease; Z99.2 Dependence on renal dialysis; F17.210 Nicotine dependence, cigarettes, uncomplicated; Z79.899 Other long term (current) drug therapy
CPT/HCPCS: 76936; 80053; 85025; 85610; 85730; 96374; J2597

== ENCOUNTER 2020-07-02 23:55 | Inpatient (IN) | payer MEDICARE, MEDICAID ==
[2020-07-03 00:32] LABS: INR-International Normal Ratio 1.2; PTT 38.1 sec (22.9-36.1); Prothrombin Time 15.3 sec (12.0-14.7)
[2020-07-03 00:34] LABS: Hemoglobin 13.8 g/dL (14.0-18.0); Mean Corpuscular HGB CONC 33.3 g/dL (32.0-36.0); Mean Corpuscular Hemoglobin 32.9 pg (27.0-31.0); Mean Corpuscular Volume 98.8 fL (78.0-98.0); RBC Distribution Width 13.5 % (11.5-14.5); Red Blood Cell (RBC) Count 4.21 mill/uL (4.70-6.10)
[2020-07-03 01:08] LABS: #Eosinphils 0.4 thou/uL (0.0-0.7); #Lymphocytes 1.8 thou/uL (1.20-3.40); #Monocytes 0.4 thou/uL (0.11-0.59); #Neutrophils 3.4 thou/uL (1.40-6.50); %Basophils 0.7 % (0.0-1.0); %Eosinophils 6.4 % (0.0-10.0); %Lymphocytes 29.7 % (21.0-51.0); %Monocytes 6.1 % (0.0-10.0); %Neutrophils 57.2 % (42.0-75.0); Mean Platelet Volume 8.7 fL (7.4-10.4); Platelet Count 116 thou/uL (130-400); Platelet Morphology Comment Appears Decreased
[2020-07-03 01:39] LABS: Anion Gap 19 mmol/L (10-20); BUN (Urea Nitrogen) 56 mg/dL (8.4-25.7); Calc. Creatinine Clearance 0 mL/min (70-130); Calcium 7.5 mg/dL (7.8-10.44); Carbon Dioxide 24 mmol/L (23-31); Chloride 100 mmol/L (98-107); Glucose 100 mg/dL (80-115); Potassium 5.4 mmol/L (3.5-5.1); Sodium 138 mmol/L (136-145)
[2020-07-03 02:31] LABS: Hemoglobin 11.9 g/dL (14.0-18.0)
--- NOTE | 2020-07-03 03:11 | PDOC.FPRHP ---
- History of Present Illness Chief Complaint: bleeding from fistula History of Present Illness: 70YOM with a PMH notable for ESRD on MWF HD, HTN, HLD, and CAD who presented to the ED for evaluation for bleeding from his fistula. He lives in [facility]. States that when he went to lift up the sleeve on his shirt, he noticed his arm was bleeding. He went to his regularly scheduled dialysis on Wednesday. He had been seen in the ED on for the same problem. This time the bleeding did not stop with compression. Upon arrival to the ED, his hemoglobin was 13.8. ER doc was able to achieve hemostasis with sutures. His SBP then dropped into the 80s and hemoglobin decreased to 11.9. Dr. Mota, his covered buckle assembler, was consulted and advised to give IVF and 1 unit pRBCs. Pt denied dizziness, light headedness, SOB, or CP. ED Course: 1.5L NS & 1U PRBCs - Allergies/Adverse Reactions Allergies Allergy/AdvReac Type Severity Reaction Status Date / Time codeine Allergy Intermediate Itching Verified 10/08/19 01:46 - Home Medications Medication Instructions Recorded Confirmed Type Pregabalin [Lyrica] 75 mg PO DAILY 11/22/15 10/07/19 History HYDROcodone/Acetaminophen [Struthers 1 each PO Q8H PRN 07/20/18 10/07/19 History 10-325 Tablet] Aluminum & Magnesium Hydroxide 30 ml PO Q6H PRN udcup 05/23/19 10/07/19 Rx [Maalox] Bisacodyl [Dulcolax] 10 mg PO DAILYPRN PRN tab 05/23/19 10/07/19 Rx Metoprolol Tartrate [Lopressor] 25 mg PO BID tab 05/23/19 10/07/19 Rx Famotidine 20 mg PO DAILY PRN 06/12/19 10/07/19 History diphenhydrAMINE [Benadryl] 25 mg PO Q6H PRN cap 06/16/19 10/07/19 Rx Artificial Tear Wilma 15ml Bot 0 drop EA EYE TID PRN 10/07/19 10/07/19 History [Tears Renewed] Calcium Carbonate [Tums] 500 mg PO QID PRN 10/07/19 10/07/19 History Pantoprazole [Protonix] 40 mg PO BID PRN 10/07/19 10/07/19 History Polyethylene Glycol 3350 [Miralax] 17 gm PO BID PRN 10/07/19 10/07/19 History Lidocaine 5% Patch [Lidoderm 5% 1 patch TD DAILY #30 patch 10/11/19 Rx Patch] Vancomycin 750 gm IVPB Q24HR #40 bag 10/11/19 Rx - History PMHx: ESRD on MWF, DMII, HTN, HLD, CAD PSHx: fistula placement, neck surgery FHx: non-contributory Social: Lives at [facility]. Former smoker. Quit ~6-7 months ago once he moved to [facility]. 1ppd for many years prior to that. Occasional EtOH use. Former heavy polysubstance use. Quit in his 40s. - Review of Systems General: denies: fever/chills, weight/appetite/sleep changes Eyes: denies: eye pain, vision changes ENT: denies: nasal congestion, rhinorrhea Respiratory: denies: cough, congestion, shortness of breath Cardiovascular: denies: chest pain, edema Gastrointestinal: reports: diarrhea. denies: nausea, vomiting, constipation, GI bleeding Genitourinary: reports: other (anuric) Skin: denies: rashes, lesions Musculoskeletal: reports: pain. 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 Neck: supple Chest: no-tender to palpation Heart: RRR, no murmurs/rubs/gallops, no edema Lungs: CTAB, no respiratory distress Abdomen: soft, non-tender Musculoskeletal: normal structure, normal tone, ROM grossly normal -Musculoskeletal: L upper arm wrapped, no bleeding noted, able to auscultate bruit at fistula site Neurological: no focal deficit -Skin: b/l LE dry, cracking skin Heme/Lymphatic: no unusual bruising or bleeding Psychiatric: normal mood and affect, intact recent and remote memory FMR H&P: Results - Labs Result Diagrams: 07/03/20 02:20 07/03/20 00:53 Lab results: WBC 6.0 thou/uL (4.8-10.8) 07/03/20 00:13 Hgb 11.9 g/dL (14.0-18.0) L 07/03/20 02:20 Hct 36.6 % (42.0-52.0) L 07/03/20 02:20 MCV 98.8 fL (78.0-98.0) H 07/03/20 00:13 Plt Count 116 thou/uL (130-400) L 07/03/20 00:13 Neutrophils % 57.2 % (42.0-75.0) 07/03/20 00:13 Sodium 138 mmol/L (136-145) 07/03/20 00:53 Potassium 5.4 mmol/L (3.5-5.1) H 07/03/20 00:53 Chloride 100 mmol/L (98-107) 07/03/20 00:53 Carbon Dioxide 24 mmol/L (23-31) 07/03/20 00:53 BUN 56 mg/dL (8.4-25.7) H 07/03/20 00:53 Creatinine 7.41 mg/dL (0.7-1.3) H 07/03/20 00:53 Glucose 100 mg/dL (80-115) 07/03/20 00:53 Calcium 7.5 mg/dL (7.8-10.44) L 07/03/20 00:53 FMR H&P: A/P - Plan 70yo male w/ PMH ESRD on HD MWF, HTN, CAD, DM who presents with bleeding from L upper arm fistula site. #Symptomatic anemia 2/2 bleeding from fistula site -Hg 13.8-->11.9. SBP range 71-104 -s/p 1.5L IVF in ED, currently on mIVF -ordered 1u pRBC in ED -Dr Mota, nephrology, was consulted from ED: plans for dialysis later today as per usual schedule -admit to IMCU for close monitoring of BP #hyperkalemia -K 5.4 -planned for dialysis later today #Indeterminate trop likely 2/2 ESRD -trop 0.053, this appears to be baseline for patient -denies CP, SOB #DM2, CAD, HTN, HLD -continue home meds Code: Full IVF: NS @ 150ml/hr Diet: CC PCP: Servando Sherwood Dispo: Admit to inpatient IMCU, continue to monitor BP, nephrology consulted, appreciate recs. FMR H&P: Upper Level - Plan Date/Time: 07/03/201 I, Cristiana Chin, have evaluated this patient and agree with findings/plan as outlined by information technology internship resident. Pertinent changes/additions are listed here. 70YOM with a PMH notable for ESRD on MWF HD, HTN, DMII, CAD & chronic back pain who presented to the ER for evaluation for bleeding from his fistula site. Patient was seen in the ED on 06/27 for a similar issue. Presented today stating the bleeding started earlier while at the [facility] & would not stop. Denies any trauma to the area. Was last dialyzed on Wednesday per his usual HD schedule. Evaluation and management in the ER including suturing of the fistula site as well as topical alex & a compression bandage to stop the bleeding. Patient was initially hemodynamically stable but following suturing of his fistula had a drop in his BP to the 80s systolic. The patient had a repeat Hgb drawn once this change in his BP was noted that showed a drop 13 to 11.9. His covered buckle assembler, Dr. Mota, was contacted and recommended giving fluids and then blood if vitals remained unstable. He then recommended starting mIVFs in an attempt to avoid starting a central line & pressors given poor vasculature as he would be dialyzed tomorrow. Otherwise, labs were notable for a hyperK of 5.4 & renal function c/w ESRD. His troponin was elevated at 0.053 but has been higher in the past per chart review & patient denied any chest pain. On exam the patients SBP was ranging from 70s-90s w/ DBP in the 40s. Otherwise, vitals were WNLs. Exam was notable for a clean, dry & intact coband around left arm fistula site but was otherwise unremarkable. Given his low BPs, patient will be to admit to the IMCU for close observation of his BP overnight with plans for HD later this AM per his usual schedule. Will be given 1U of PRBCs per nephron recs for his symptomatic anemia & IVFs as noted above. For his HyperK, to be dialyzed later today. For his indeterminant troponin, likely elevated 2/2 ESRD. Will not continue to trend & only repeat should patient report chest pain. For his chronic medical conditions including DMII, CAD, HTN & HLD, will resume home meds as tolerated. Addendum - Attending - Attending Attestation Date/Time: 07/03/20 [id number] I personally evaluated the patient and discussed the management with Dr. Mckeon I agree with the History, Examination, Assessment and Plan documented above with any addition or exceptions noted below- 70YOM with a PMH notable for ESRD on MWF HD, HTN, HLD, and CAD who presented to the ED for evaluation for bleeding from his fistula. He lives in [facility]. States that when he went to lift up the sleeve on his shirt, he noticed his arm was bleeding. He went to his regularly scheduled dialysis on Wednesday. He had been seen in the ED on for the same problem. This time the bleeding did not stop with compression. Upon arrival to the ED, his hemoglobin was 13.8. ER doc was able to achieve hemostasis with sutures. His SBP then dropped into the 80s and hemoglobin decreased to 11.9. Dr. Mota, his covered buckle assembler, was consulted and advised to give IVF and 1 unit pRBCs. Pt denied dizziness, light headedness, SOB, or CP. Afebrile BP 92/57 P62 Exam repeated by me and agree with resident's findings. Labs: H/H=13.8/41.6->11.9/36.6, Vu=866, K=5.4, Mb=909, CO2=24, BUN/Cr=56/7.41, Mbrr=020. A/P: 1) Bleeding from fistula - now resolved; continue fluids, 1u pRBCs given. 2) ESRD- cotninue HD; nephrology aware. 3) DM- continue home meds.
[2020-07-03 03:29] LABS: CKMB 1.3 ng/mL (0-6.6)
[2020-07-03] MEDS ORDERED: Acetaminophen 325 MG TAB PO PRN (04:04)
[2020-07-03] MEDS ORDERED: Dextrose 5% in Water 1,000 ML IV PRN (04:04)
[2020-07-03] MEDS ORDERED: HumaLOG 300 UNITS/3 ML VIAL SC PRN ×2 (04:04)
[2020-07-03] MEDS ORDERED: Dextrose 50% Abboject 50 ML SYRINGE SLOW IVP PRN (04:04)
[2020-07-03] MEDS ORDERED: Ondansetron ODT 4 MG TAB PO PRN (04:04)
[2020-07-03] MEDS ORDERED: Ondansetron PF 4 MG/2 ML Vial IVP PRN (04:04)
[2020-07-03] MEDS: Sodium Chloride 0.9% 1,000 ML IV SCH ×3 (05:58→23:21)
--- NOTE | 2020-07-03 08:33 | RAD ---
Radiograph left humerus 2 views: 07/03/2020 1:16 AM HISTORY: 70-year-old male with left arm pain FINDINGS: Left subclavian stent. Another stent adjacent to the proximal diaphysis of the humerus. Mildly partia lly calcified hemodialysis AV fistula access "aneurysm" visualized from mid to distal portion of arm to the elbow. No fracture or destructive osseous lesion of the humerus identified. Osteopenia. No subcutaneous emphysema. IMPRESSION: 1. No fracture. 2. Hemodialysis access AV fistula findings.
--- NOTE | 2020-07-03 08:35 | RAD ---
Radiograph left shoulder 3 views: 07/03/2020 1:14 AM HISTORY: 70-year-old male with left shoulder pain FINDINGS: Osteopenia. Multiple left subclavian and brachial vascular stents. No fracture or dislocation. Food Analyst ior element screws with vertical interlocking rods throughout much of the C-spine and into the upper T-spine. IMPRESSION: No fracture or dislocation.
[2020-07-03 09:35] LABS: SARS-CoV-2 MS2 Positive; SARS-CoV-2 N Gene Negative; SARS-CoV-2 S Gene Negative; SARS-CoV-2 by NAA Not Detected (NotDetected); SARS-CoV-2 orf1ab Negative
--- NOTE | 2020-07-03 10:31 | PDOC.BPN ---
<Pramod Melendez - Last Filed: 07/03/20 10:28> - Brief Progress Note Encounter Date: 07/03/20 Encounter Time: 10:31 Patient doing well on exam this AM. BP stabilized with recent systolics in 90- 100s, MAP>65 with 1upRBC and fluid resuscitation. Dr. Hudson will see patient in outpatient clinic for further evaluation of fistula. Will discuss with him to determine if he has other recommendations. Given stabilizing BP, will transfer to [facility] from [facility]. Plan still for dialysis today. Consider surgery consult if there is further difficulty with bleeding. <Kamille Albright - Last Filed: 07/03/20 10:43> - Brief Progress Note 70 yo male admitted for hemorrhagic shock due to bleeding left arm fistula graft Now stable. BP improved. s/p 1 uRBCs. Not requiring pressors. Ok to down grade to tele. Potassium 5.4. On fluids. HD this AM will correct. Osteopenia on XR but no fractures. Now with spontaous bleed from fistula x2. Gen surg to see as outpatient but will discuss on phone management. Follow up later today. Possible d/c. Leonid
--- NOTE | 2020-07-03 16:08 | HP ---
HISTORY OF PRESENT ILLNESS: Critical care evaluation of 30 minutes related to left arm AV fistula hemorrhage, placed on 07/28/2000, left upper arm fistula, cephalic vein to brachial artery. Since then in 12/2011, I did a subtotal parathyroidectomy. The patient's left arm fistula is working well with interventions. He has been seeing Dr. Fairchild more recently. X-rays of his shoulder and arm revealed stents in his cephalic vein upper arm, left subclavian vein stents, and cephalic vein stents. The patient is at [facility]. He reported to the emergency room in the late evening when his clothes rubbed on his recent access site in the left upper arm, causing hemorrhage from his fistula. Dr. Ghosh tried to control this locally, was having difficulty. I was called. I arrived at 12:45 a.m. By the time I arrived, Dr. Ghosh has placed 2 stitches controlling the hemorrhage. The fistula looked good by palpation. I could feel stents in the left shoulder area. He had a good thrill and bruit. His fistula is soft otherwise. No intervention was necessary. At this point, the patient has a failing left arm access. [facility]. We would recommend a fistulogram be obtained and evaluate this. Dr. Fairchild can do this or we can do at [facility] [place]. It is unlikely I will be able to do any kind of revision of this fistula surgically. It is very likely he will need a new fistula right arm in the future given his prison status and multiple comorbidities. We could wait until this fistula fails or we could be proactive in establishment of a fistula in the right arm with ultrasound vein mapping prior. We will see him in the office to discuss this. ALLERGIES: CODEINE. SOCIAL HISTORY: Alcohol, none. MEDICATIONS: 1. MiraLAX. 2. Metoprolol. 3. Hydrocodone. 4. Dulcolax. 5. Lyrica. 6. Tylenol. PAST SURGICAL HISTORY: 1. Lumbar surgery. 2. Buttock abscess drainage. 3. Subtotal parathyroidectomy. 4. Left arm fistula with multiple interventions. PAST MEDICAL HISTORY: 1. End-stage renal disease, on hemodialysis with left arm fistula. 2. COPD. 3. Type 2 diabetes mellitus. 4. Chronic back pain. 5. History of NE in the past. 6. Hypertension. PHYSICAL EXAMINATION: HEAD, EARS, EYES, NOSE, AND THROAT: Unremarkable. LUNGS: Clear to auscultation. CARDIAC: Regular rate and rhythm. ABDOMEN: Obese, soft. EXTREMITIES: Left upper arm fistula with good thrill and bruit, sutures controlling the hemorrhaging area. ASSESSMENT AND PLAN: End-stage renal disease with failing left arm fistula. Plan as above. Job ID: [id number]
[2020-07-03 21:47] LABS: Hemoglobin 12.4 g/dL (14.0-18.0)
[2020-07-04 01:25] VITALS: BMI 35.4
[2020-07-04] MEDS: Sodium Chloride 0.9% 1,000 ML IV SCH ×2 (01:28→06:06)
[2020-07-04] MEDS ORDERED: Polyethylene Glycol 3350 17 GM Packet PO PRN ×2 (06:58→10:53)
--- NOTE | 2020-07-04 07:00 | PDOC.FM ---
- Subjective Subjective: Patient feeling well this am, ready to leave the hospital. Denies SOB, CP, and N/V. Denies bleeding overnight. - Objective MAR Reviewed: Yes Vital Signs & Weight: Vital Signs (12 hours) Temp Pulse Resp BP Pulse Ox 07/04/20 05:00 97.6 F 77 18 107/63 98 07/04/20 01:00 98.3 F 90 18 103/65 96 07/03/20 20:00 98.0 F 87 20 129/76 100 Weight Weight 109 kg I&O: 07/03/20 07/04/20 07/05/20 06:59 06:59 06:59 Intake Total 885 Balance 885 Result Diagrams: 07/04/20 10:17 07/04/20 07:40 Phys Exam - Physical Examination Constitutional: NAD Respiratory: no wheezing, no rales, no rhonchi Cardiovascular: RRR, no significant murmur, no rub Gastrointestinal: soft, non-tender, no distention, positive bowel sounds Dx/Plan - Plan Plan: 70yo male w/ PMH ESRD on HD MWF, HTN, CAD, DM who presents with bleeding from L upper arm fistula site. Symptomatic anemia 2/2 bleeding from fistula site - s/p 1upRBC in ED - Dr Mota, nephrology, was consulted from ED and planned continue HD - BP stable overnight Hyperkalemia -K 5.4 resolved Indeterminate trop likely 2/2 ESRD -trop 0.053, this appears to be baseline for patient -denies CP, SOB DM2, CAD, HTN, HLD -continue home meds Code: Full IVF: SL Diet: CC PCP: Servando Sherwood Dispo: Admitted to medicine, can likely dc today pending AM CBC. Addendum - Attending - Attending Attestation Date/Time: 07/04/20 2156 I personally evaluated the patient and discussed the management with Dr. Melendez I agree with the History, Examination, Assessment and Plan documented above with any addition or exceptions noted below. 70 yo male admitted for hemorrhagic shock due to bleeding left arm fistula graft Did well overnight. No complications. H&H stable. Ok to d/c home after evaluation from Dr. Hudson. However, after compression bandage was taken off fistula hemorrhage occurred. Revision planned this afternoon. Likely home in AM if all goes well. Will need HD prior to d/c if able to go tomorrow. But unsure if revision will be able to occur. Leonid
[2020-07-04] MEDS ORDERED: Bisacodyl 10 MG SUPP PR PRN (07:25)
[2020-07-04 08:11] LABS: Anion Gap 16 mmol/L (10-20); BUN (Urea Nitrogen) 29 mg/dL (8.4-25.7); Calc. Creatinine Clearance 22 mL/min (70-130); Calcium 6.8 mg/dL (7.8-10.44); Carbon Dioxide 23 mmol/L (23-31); Chloride 104 mmol/L (98-107); Glucose 87 mg/dL (80-115); Potassium 3.7 mmol/L (3.5-5.1); Sodium 139 mmol/L (136-145)
[2020-07-04] MEDS ORDERED: Metoprolol Tartrate 25 MG TAB PO SCH (09:00)
[2020-07-04] MEDS ORDERED: Pregabalin 75 MG CAP PO SCH (09:00)
[2020-07-04] MEDS ORDERED: PHENYLEPHRINE-NS 100 MCG/ML 10 ML SYRINGE ONE (10:23)
[2020-07-04] MEDS ORDERED: Ondansetron PF 4 MG/2 ML Vial ONE (10:23)
[2020-07-04] MEDS ORDERED: Succinylcholine 200 MG/10 ml SYRINGE FS ONE (10:23)
[2020-07-04 11:07] LABS: #Basophils 0.1 thou/uL (0.0-0.2); #Eosinphils 0.3 thou/uL (0.0-0.7); #Lymphocytes 1.6 thou/uL (1.20-3.40); #Monocytes 0.5 thou/uL (0.11-0.59); #Neutrophils 3.7 thou/uL (1.40-6.50); %Basophils 1.1 % (0.0-1.0); %Eosinophils 4.9 % (0.0-10.0); %Lymphocytes 26.3 % (21.0-51.0); %Monocytes 8.5 % (0.0-10.0); %Neutrophils 59.3 % (42.0-75.0); Hemoglobin 11.5 g/dL (14.0-18.0); Mean Corpuscular HGB CONC 32.9 g/dL (32.0-36.0); Mean Corpuscular Hemoglobin 32.1 pg (27.0-31.0); Mean Corpuscular Volume 97.6 fL (78.0-98.0); Mean Platelet Volume 9.1 fL (7.4-10.4); Platelet Count 88 thou/uL (130-400); RBC Distribution Width 13.7 % (11.5-14.5); Red Blood Cell (RBC) Count 3.58 mill/uL (4.70-6.10); White Blood Cell (WBC) Count 6.3 thou/uL (4.8-10.8)
[2020-07-04] MEDS ORDERED: CEFAZOLIN 2 GM in Premix Bag 1 BAG IVPB SCH (11:15)
[2020-07-04] MEDS ORDERED: Protamine Sulfate 50 MG/5 ML VIAL ONE (12:57)
[2020-07-04] MEDS ORDERED: Heparin 5,000 UNITS/ML VIAL ONE (12:57)
[2020-07-04] MEDS ORDERED: Bupivacaine PF 0.5% 30 ML VIAL ONE (12:57)
[2020-07-04] MEDS ORDERED: Lidocaine 2% w/Epinephrine 1:200K 20 ML VIAL ONE (12:57)
[2020-07-04] MEDS ORDERED: Phenylephrine 10 MG/ML VIAL ONE (12:59)
[2020-07-04] MEDS ORDERED: Fentanyl 100 MCG/2 ML VIAL ONE (12:59)
[2020-07-04] MEDS ORDERED: Ondansetron HCl/PF 4 MG/2 ML Vial IVP PRN (13:57)
[2020-07-04] MEDS ORDERED: Promethazine HCl 25 MG/ML VIAL SLOW IVP PRN (13:57)
--- NOTE | 2020-07-04 14:12 | PRG ---
DATE OF SERVICE: 07/04/2020 Mason Alexander was seen earlier this morning. At that point, his dressings over his left AV fistula were removed. These dressings were dry. The wound looked good. Shortly after that, the patient experienced hemorrhage from the site. There was report of significant bleeding. His hemoglobin was rechecked, it was 11.5. The patient states he has felt better and did not have any orthostatics symptoms since being transfused 1 unit of blood yesterday. His dizziness and weakness have resolved. Since it has rebleed, we will plan surgical revision today. Unfortunately, he ate breakfast, but I think his risk of re-hemorrhage is significant without revision and waiting our delay would result in significant bleeding in wrist. Thus, we will proceed with a full stomach general anesthesia, taking the precautions for that. Risks of infection, bleeding, reoperation, and likely patient will need hemodialysis catheter. He, however, consented if necessary. As previously noted, the patient has multiple stents in his left upper arm and subclavian vein. His left arm fistula durability is compromised. He has had this for 20 years. At this point, I have given him options of ultrasound vein mapping right arm to look at new fistula in the right arm, so it can be maturing his left arm. He continues to use his left arm fistula, thus avoid a catheter. Considering the patient's age and physical status, however, the patient wishes to continue to use left arm fistula as long as possible and if it thrombosis, we will deal with the new access at that time. I agree with this approach. Today, we will take him to the operating room to repair his left arm fistula and hopefully salvage that. Job ID: [id number]
[2020-07-04] MEDS ORDERED: Acetaminophen 500 MG TAB PO PRN (14:59)
[2020-07-04] MEDS ORDERED: traMADol HCl 50 MG TAB PO PRN (14:59)
[2020-07-04 16:12] VITALS: TEMP 97.6
[2020-07-04 18:33] VITALS: BP 106/66
--- NOTE | 2020-07-04 20:30 | DIS ---
DATE OF ADMISSION: 07/03/2020 DATE OF DISCHARGE: 07/04/2020 RESIDENT: Pramod Melendez MD ADMITTING ATTENDING: Dr. Romano. DISCHARGE ATTENDING: Dr. Albright. CONSULTS: Dr. Mota, Nephrology, 07/03; Dr. Hudson, General Surgery, 07/03. PROCEDURES: On 07/04, the patient had a procedure to repair left arm fistula. Dr. Hudson reported that there was an aneurysm that he repaired. Shoulder x-ray and humerus x-ray were negative for any acute osseous abnormality. PRIMARY DIAGNOSIS: Symptomatic anemia due to bleeding from fistula site. SECONDARY DIAGNOSES: Hyperkalemia, indeterminate troponin, diabetes type 2, coronary artery disease, hypertension, hyperlipidemia, end-stage renal disease on dialysis. DISCHARGE MEDICATIONS: 1. Dulcolax 10 mg VT daily p.r.n. 2. Avoca 10/325 one tablet p.o. q.8 hours p.r.n. for pain. 3. Lopressor 25 mg p.o. b.i.d. 4. MiraLAX 17 g p.o. p.r.n. daily. 5. Lyrica 75 mg p.o. daily. DISCONTINUED MEDICATIONS: None. HISTORY OF PRESENT ILLNESS/HOSPITAL COURSE: The patient is a 70-year-old male with past medical history of end-stage renal disease, who presents to the ER due to bleeding from the fistula site with symptomatic anemia. The patient stated that he went to his regular scheduled dialysis on Wednesday and bleeding began after lifting up the sleeve of his shirt. He tried to hold compression against the bleeding area, which did not help to stop bleeding. In the ER, the patient was given 1 unit of packed red blood cells as well as 1.5 L of normal saline. The patient was initially dispositioned to the intermediate care unit due to hypotension; however, with administration of IV fluids and packed red blood cells, blood pressure returned to normal limits and the patient was dispositioned to the medical floor. The patient received dialysis as scheduled on Wednesday. Discharge was delayed due to dialysis ending late. morning, fistula was re-evaluated by Dr. Hudson, at which time the fistula site began to bleed again. Dr. Hudson performed emergency surgery on the fistula removing the aneurysm. Postsurgery primary team was updated with Dr. Hudson's plans including discharge with outpatient followup. Dr. Hudson gave the patient instructions to return back to [facility] with. The patient will be able to use fistula as scheduled for dialysis per Dr. Hudson. DISPOSITION: Stable. DISCHARGE INSTRUCTIONS: 1. Location: [facility]. 2. Diet: Renal diet, high-protein. 3. Activity: As tolerated. 4. Followup: Please follow up with Dr. Hudson within 2 to 3 weeks and primary care doctor within 2 weeks for re-evaluation. Job ID: [id number]
--- NOTE | 2020-07-05 12:41 | OP ---
DATE OF PROCEDURE: 07/04/2020 PREOPERATIVE DIAGNOSES: End-stage renal disease, left upper arm dialysis fistula cephalic vein malfunction with multiple stents in his left subclavian vein and cephalic vein fistula and hemorrhage from an aneurysm. POSTOPERATIVE DIAGNOSES: End-stage renal disease, left upper arm dialysis fistula cephalic vein malfunction with multiple stents in his left subclavian vein and cephalic vein fistula and hemorrhage from an aneurysm. 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 ANESTHESIA: Per Anesthesia. DESCRIPTION OF PROCEDURE: The patient was taken to the operating room, were under anesthesia, the left upper extremity was prepared with ChloraPrep and draped in routine fashion. Incision was made over the distal left upper arm fistula down towards the antecubital fossa. There was a large aneurysm with erosion to the skin that was hemorrhaging. This was dissected free. The patient was given heparin intravenously, and proximal and distal control gained with vascular clamps. The aneurysm was excised elliptically and then closed with continuous locking sutures of 4-0 Prolene, overlapping the fistula olmos, completing closure. Wound irrigated. There was a good thrill and bruit after releasing vascular control. Subcutaneous tissue was approximated with 3-0 Monocryl, skin with subdermal 4-0 Monocryl, and [place] glue applied. Job ID: [id number]
--- NOTE | 2020-07-13 13:50 | EKG ---
Test Reason : HYPERKALEMIA Blood Pressure : / mmHG Vent. Rate : 078 BPM Atrial Rate : 065 BPM P-R Int : 196 ms QRS Dur : 090 ms QT Int : 454 ms P-R-T Axes : 043 -38 041 degrees QTc Int : 517 ms Sinus rhythm with occasional Premature ventricular complexes Left axis deviation Low voltage QRS Inferior infarct , age undetermined Prolonged QT Abnormal ECG Confirmed by BON KHAN ([id number]), editor magazine CHAPIS FRIED ([id number]) on 07/13/2020 1:50:23 PM Referred By: Confirmed By:BON KHAN
== END 2020-07-04 18:25 | DRG 270 ==
LOC: ERS 23:55 → ERHOLD 07-03 03:20 → T4-A 07-04 00:38
PROVIDERS: ADMIT Family Medicine; ATTEND Family Medicine
PROC: 30233N1 Transfusion of Nonautologous Red Blood Cells into Peripheral Vein, Percutaneous Approach (ICD-10-PCS; principal; 2020-07-03)
PROC: 05V Upper Veins, Restriction (ICD-10-PCS; 2020-07-04)
DX: T82.838A Hemorrhage due to vascular prosthetic devices, implants and grafts, initial encounter (principal); N18.6 End stage renal disease; R57.8 Other shock; I12.0 Hypertensive chronic kidney disease with stage 5 chronic kidney disease or end stage renal disease; Y83.2 Surgical operation with anastomosis, bypass or graft as the cause of abnormal reaction of the patient, or of later complication, without mention of misadventure at the time of the procedure; Z20.822 Contact with and (suspected) exposure to COVID-19; T82.898A Other specified complication of vascular prosthetic devices, implants and grafts, initial encounter; E11.22 Type 2 diabetes mellitus with diabetic chronic kidney disease; E78.5 Hyperlipidemia, unspecified; I25.10 Atherosclerotic heart disease of native coronary artery without angina pectoris; D64.9 Anemia, unspecified; E87.6 Hypokalemia; M54.9 Dorsalgia, unspecified; G89.29 Other chronic pain; M85.80 Other specified disorders of bone density and structure, unspecified site; J44.9 Chronic obstructive pulmonary disease, unspecified; Z88.5 Allergy status to narcotic agent; Z79.899 Other long term (current) drug therapy; I25.2 Old myocardial infarction; Z87.891 Personal history of nicotine dependence; Z79.82 Long term (current) use of aspirin
CPT/HCPCS: 12001; 36415; 36416; 36430; 80048; 82553; 84484; 85025; 85610; 85730; 86850; 86900; 86901; 87635; 90935; 93005; A6448; G0257; J0690; J1644; J2370; J2405; J2720; J3010; P9016; S0020; U0003

== ENCOUNTER 2020-07-05 16:54 | Inpatient (IN) | payer MEDICARE, MEDICAID ==
[2020-07-05 19:10] LABS: INR-International Normal Ratio 1.1; PTT 27.1 sec (22.9-36.1); Prothrombin Time 14.5 sec (12.0-14.7)
[2020-07-05 19:11] LABS: #Eosinphils 0.2 thou/uL (0.0-0.7); #Lymphocytes 1.5 thou/uL (1.20-3.40); #Monocytes 0.4 thou/uL (0.11-0.59); #Neutrophils 5.6 thou/uL (1.40-6.50); %Basophils 0.6 % (0.0-1.0); %Eosinophils 2.8 % (0.0-10.0); %Lymphocytes 18.8 % (21.0-51.0); %Monocytes 5.3 % (0.0-10.0); %Neutrophils 72.6 % (42.0-75.0); Hemoglobin 9.7 g/dL (14.0-18.0); Mean Corpuscular HGB CONC 33.6 g/dL (32.0-36.0); Mean Corpuscular Volume 98.2 fL (78.0-98.0); Mean Platelet Volume 8.7 fL (7.4-10.4); Platelet Count 104 thou/uL (130-400); RBC Distribution Width 13.5 % (11.5-14.5); Red Blood Cell (RBC) Count 2.95 mill/uL (4.70-6.10); White Blood Cell (WBC) Count 7.7 thou/uL (4.8-10.8)
[2020-07-05 19:25] LABS: ALT (SGPT) 8 U/L (8-55); AST (SGOT) 23 U/L (5-34); Albumin 2.8 g/dL (3.4-4.8); Alkaline Phosphatase 53 U/L (40-110); Anion Gap 14 mmol/L (10-20); BUN (Urea Nitrogen) 25 mg/dL (8.4-25.7); Bilirubin, Total 0.4 mg/dL (0.2-1.2); Calc. Creatinine Clearance 0 mL/min (70-130); Calcium 7.1 mg/dL (7.8-10.44); Carbon Dioxide 24 mmol/L (23-31); Chloride 103 mmol/L (98-107); Globulin 4.8 g/dL (2.4-3.5); Glucose 126 mg/dL (80-115); Potassium 3.6 mmol/L (3.5-5.1); Protein, Total 7.6 g/dL (5.8-8.1); Sodium 137 mmol/L (136-145)
--- NOTE | 2020-07-05 19:56 | PDOC.FPRHP ---
- History of Present Illness Chief Complaint: HD bleeding access History of Present Illness: 70 yo M with ESRD on MWF HD sent from HD after bleeding from fistula. He was an hour into dialysis when he had significant bleeding from his access site which resolved with pressure dressings. Mr. Alexander was just discharged from our service this week after being admitted for the same reason. He was seen by Dr. Hudson who performed aneursym removal and cleared him for continued access use. Patient has had left arm fistula in place for 21 years with no prior bleeding episodes. He is on daily ASA. His Hgb in the ER was 9.7 in which is baseline fluctuates from 9-13. He denies feeling lightheaded, SOB, dizzy, feels well. Vitals are currently stable aside from a low BPs 902/50s in which patient states he usually runs around that same range at home. He denies trauma to his arm and is hesitant about placement of new fistula in his right arm. - Allergies/Adverse Reactions Allergies Allergy/AdvReac Type Severity Reaction Status Date / Time codeine Allergy Intermediate Itching Verified 10/08/19 01:46 - Home Medications Medication Instructions Recorded Confirmed Type Pregabalin [Lyrica] 75 mg PO DAILY 11/22/15 07/06/20 History HYDROcodone/Acetaminophen [[place] 1 each PO Q8H PRN 07/20/18 07/06/20 History 10-325 Tablet] Metoprolol Tartrate [Lopressor] 25 mg PO BID tab 05/23/19 07/06/20 Rx Polyethylene Glycol 3350 [Miralax] 17 gm PO PRN PRN 10/07/19 07/06/20 History Acetaminophen [Tylenol Regular 650 mg PO Q4H PRN tab 07/03/20 07/06/20 Rx Strength] Bisacodyl [Dulcolax] 10 mg WI DAILYPRN PRN 07/03/20 07/06/20 History Acetaminophen [Tylenol Extra 1,000 mg PO Q6H PRN tab 07/04/20 07/06/20 Rx Strength] - History PMHx: ESRD on MWF, DMII, HTN, HLD, CAD PSHx: fistula placement, neck surgery FHx: non-contributory Social: Lives at [facility]. Former smoker. Quit ~6-7 months ago once he moved to [place]. 1ppd for many years prior to that. Occasional EtOH use. Former heavy polysubstance use. Quit in his 40s. - Review of Systems General: denies: fever/chills, weight/appetite/sleep changes Eyes: denies: eye pain, vision changes ENT: denies: nasal congestion, rhinorrhea Respiratory: denies: cough, congestion, shortness of breath Cardiovascular: denies: chest pain, palpitation Gastrointestinal: denies: nausea, vomiting, diarrhea, constipation, abdominal pain, GI bleeding Musculoskeletal: reports: swelling. denies: arthritis/arthralgias Neurological: reports: weakness. denies: syncope, seizure - Vital signs BP: 96/55, Pulse: 100, Resp: 16, Temp: 97.7 (Axillary), Pain: 7, O2 sat: 99 on (Room Air), Time: 07/05/2020 19:51. - Physical Exam Constitutional: NAD, awake, alert and oriented, well developed HEENT: normocephalic and atraumatic, PERRLA, EOMI, no scleral icterus, grossly normal vision -HEENT: subconjunctial hemorrhage Neck: supple, FROM, trachea midline Heart: RRR, normal S1/S2, no murmurs/rubs/gallops Lungs: CTAB, no respiratory distress, good air movement Abdomen: soft, non-tender, bowel sounds present Musculoskeletal: normal structure, normal tone -Musculoskeletal: left hand with good radial pulse, strength 5/5, sensation intact Neurological: no focal deficit, CN II-XII intact Skin: capillary refill <2 seconds -Skin: left arm with HD access, incision clean dry and intact with bruit auscultated at crease of elbow. Pressure dressings in place Heme/Lymphatic: no petechia Psychiatric: normal mood and affect, good judgment and insight FMR H&P: Results - Labs Result Diagrams: 07/06/20 05:17 07/06/20 05:17 Lab results: WBC 7.7 thou/uL (4.8-10.8) 07/05/20 18:55 Hgb 9.7 g/dL (14.0-18.0) L 07/05/20 18:55 Hct 29.0 % (42.0-52.0) L 07/05/20 18:55 MCV 98.2 fL (78.0-98.0) H 07/05/20 18:55 Plt Count 104 thou/uL (130-400) L 07/05/20 18:55 Neutrophils % 72.6 % (42.0-75.0) 07/05/20 18:55 Sodium 137 mmol/L (136-145) 07/05/20 18:55 Potassium 3.6 mmol/L (3.5-5.1) 07/05/20 18:55 Chloride 103 mmol/L (98-107) 07/05/20 18:55 Carbon Dioxide 24 mmol/L (23-31) 07/05/20 18:55 BUN 25 mg/dL (8.4-25.7) 07/05/20 18:55 Creatinine 4.99 mg/dL (0.7-1.3) H 07/05/20 18:55 Glucose 126 mg/dL (80-115) H 07/05/20 18:55 Calcium 7.1 mg/dL (7.8-10.44) L 07/05/20 18:55 Total Bilirubin 0.4 mg/dL (0.2-1.2) 07/05/20 18:55 AST 23 U/L (5-34) 07/05/20 18:55 ALT 8 U/L (8-55) 07/05/20 18:55 Alkaline Phosphatase 53 U/L (40-110) 07/05/20 18:55 B-Natriuretic Peptide 249.0 pg/mL (0-100) H 07/05/20 18:55 Serum Total Protein 7.6 g/dL (5.8-8.1) 07/05/20 18:55 Albumin 2.8 g/dL (3.4-4.8) L 07/05/20 18:55 FMR H&P: A/P - Plan 70yo male w/ PMH ESRD on HD MWF, HTN, CAD, DM2 who presents with bleeding from L upper arm fistula site. #Anemia 2/2 bleeding from fistula site -Hgb 9, patient asx -Dr. Hudson consulted, plans to assess in AM, recs appreciated -Recheck Hgb with AM labs #Mild hypotension -SBP 96/55, 92/26, bolused 500cc with improvement to SBP 100s -Patient runs low at baseline, asx -Hold antihypertensives, mIVF, monitor overnight #ESRD on HD -Electrolytes stable -Dr. Mota consulted, plan for scheduled HD after Dr. Hudson assess fistula site #CAD -hold ASA #DM2, HTN, HLD -continue home meds Dvt ppx: hold Code: Full Diet: CC/RD-HP PCP: Servando Sherwood Dispo: >48hours FMR H&P: Upper Level - Plan Date/Time: 07/05/201955 I, [], have evaluated this patient and agree with findings/plan as outlined by manager of international resident. Pertinent changes/additions are listed here. Addendum - Attending - Attending Attestation Date/Time: 07/06/20 0602 I personally evaluated the patient and discussed the management with Dr. Mckeon/Isael I agree with the History, Examination, Assessment and Plan documented above with any addition or exceptions noted below.
[2020-07-05] MEDS ORDERED: HumaLOG 300 UNITS/3 ML VIAL SC PRN ×2 (20:31)
[2020-07-05] MEDS ORDERED: Dextrose 50% Abboject 50 ML SYRINGE SLOW IVP PRN (20:31)
[2020-07-05] MEDS ORDERED: Dextrose 5% in Water 1,000 ML IV PRN (20:31)
[2020-07-05] MEDS ORDERED: Sodium Chloride 0.9% 500 ML IV SCH ×2 (21:00)
[2020-07-05] MEDS ORDERED: Sodium Chloride 0.9% 1,000 ML IV SCH (21:00)
[2020-07-05] MEDS ORDERED: Bisacodyl 5 MG TAB PO PRN (21:07)
[2020-07-06] MEDS ORDERED: Lactated Ringer's 1,000 ML IV SCH (03:30)
[2020-07-06] MEDS: HYDROcodone/Acetaminophen 10/325 mg Tablet PO PRN ×2 (03:54→18:25)
--- NOTE | 2020-07-06 05:54 | PDOC.FM ---
- Subjective Subjective: Patient reports mild, generalized, bilateral foot pain. No ulcers present. Denies neuropathy. Denies headache, vision change, chest pain, SOB, and abdominal pain. Denies active bleeding from fistula site. - Objective MAR Reviewed: Yes Vital Signs & Weight: Vital Signs (12 hours) Temp Pulse Resp BP BP Pulse Ox 07/06/20 04:41 97.8 F 97 18 85/46 L 100 07/05/20 23:45 98.5 F 90 16 92/51 L 95 Weight Weight 112.037 kg I&O: 07/04/20 07/05/20 07/06/20 06:59 06:59 06:59 Intake Total 120 Balance 120 Result Diagrams: 07/06/20 05:17 07/06/20 05:17 Phys Exam - Physical Examination Constitutional: NAD Fistula in place HEENT: moist MMs, sclera anicteric Neck: full ROM Respiratory: clear to auscultation bilateral Cardiovascular: RRR, no significant murmur Gastrointestinal: soft, non-tender, positive bowel sounds Musculoskeletal: no edema Neurological: non-focal Psychiatric: normal affect Skin: no rash Deviation from normal: No ulcerations present on feet bilaterally Dx/Plan - Plan Plan: 70yo male w/ PMH ESRD on HD MWF, HTN, CAD, DM2 who presents with bleeding from L upper arm fistula site. #Anemia 2/2 bleeding from fistula site -Hgb 9, patient asx on admission. F/u am hgb -Dr. Hudson consulted in ED. Dr. Villegas (trauma surgery) saw patient this am, no indication for inpatient intervention unless emergent dialysis is required #Hypotension in setting of hx HTN -SBP 96/55, 92/26, bolused 500cc with improvement to SBP 100s. BP 85/46 in am, started on LR @ 50 -Patient runs low at baseline, asx -Hold antihypertensives #ESRD on HD -Electrolytes stable -Dr. Mota consulted, plan for scheduled HD this am. F/u recs #CAD -hold ASA #DM2, HLD -continue home meds Dvt ppx: hold Code: Full Diet: CC/RD-HP PCP: Servando Sherwood Dispo: Servando TURNER pending further medical management Addendum - Attending - Attending Attestation Date/Time: 07/06/20 4737 I personally evaluated the patient and discussed the management with Dr. Reed I agree with the History, Examination, Assessment and Plan documented above with any addition or exceptions noted below. Dr Mota's patient with recurrent HD access bleeding left UE shunt. Patient with longstanding shunt now with recurrent bleeding. Patient with recent revision/stitched to control bleeding per Dr Hudson. Will discuss any need urgent HD requirement for temporay access otherwise Dr Hudson to evaluate early next week for future HD vascular access.
[2020-07-06 06:01] LABS: #Eosinphils 0.3 thou/uL (0.0-0.7); #Lymphocytes 1.3 thou/uL (1.20-3.40); #Monocytes 0.5 thou/uL (0.11-0.59); #Neutrophils 4.3 thou/uL (1.40-6.50); %Basophils 0.5 % (0.0-1.0); %Eosinophils 4.3 % (0.0-10.0); %Lymphocytes 20.3 % (21.0-51.0); %Monocytes 7.3 % (0.0-10.0); %Neutrophils 67.6 % (42.0-75.0); Hemoglobin 9.1 g/dL (14.0-18.0); Mean Corpuscular HGB CONC 33.8 g/dL (32.0-36.0); Mean Corpuscular Hemoglobin 32.8 pg (27.0-31.0); Mean Corpuscular Volume 97.3 fL (78.0-98.0); Platelet Count 91 thou/uL (130-400); RBC Distribution Width 13.5 % (11.5-14.5); Red Blood Cell (RBC) Count 2.75 mill/uL (4.70-6.10); White Blood Cell (WBC) Count 6.3 thou/uL (4.8-10.8)
[2020-07-06 06:05] LABS: Hemoglobin A1c 4.8 % (4.0-6.0)
[2020-07-06 06:17] LABS: Anion Gap 14 mmol/L (10-20); BUN (Urea Nitrogen) 30 mg/dL (8.4-25.7); Calc. Creatinine Clearance 19 mL/min (70-130); Carbon Dioxide 22 mmol/L (23-31); Chloride 104 mmol/L (98-107); Glucose 92 mg/dL (80-115); Potassium 3.6 mmol/L (3.5-5.1); Sodium 136 mmol/L (136-145)
[2020-07-06] MEDS: Pregabalin 75 MG CAP PO SCH (08:01)
[2020-07-06 23:54] VITALS: BMI 35.7
[2020-07-07] MEDS: HYDROcodone/Acetaminophen 10/325 mg Tablet PO PRN ×3 (00:09→17:49)
[2020-07-07 05:46] LABS: #Eosinphils 0.3 thou/uL (0.0-0.7); #Lymphocytes 1.5 thou/uL (1.20-3.40); #Monocytes 0.5 thou/uL (0.11-0.59); #Neutrophils 5.1 thou/uL (1.40-6.50); %Basophils 0.5 % (0.0-1.0); %Eosinophils 4.5 % (0.0-10.0); %Lymphocytes 20.6 % (21.0-51.0); %Monocytes 6.4 % (0.0-10.0); Hemoglobin 8.5 g/dL (14.0-18.0); Mean Corpuscular HGB CONC 33.6 g/dL (32.0-36.0); Mean Corpuscular Hemoglobin 32.7 pg (27.0-31.0); Mean Corpuscular Volume 97.4 fL (78.0-98.0); Mean Platelet Volume 8.9 fL (7.4-10.4); Platelet Count 97 thou/uL (130-400); RBC Distribution Width 13.3 % (11.5-14.5); Red Blood Cell (RBC) Count 2.59 mill/uL (4.70-6.10); White Blood Cell (WBC) Count 7.5 thou/uL (4.8-10.8)
--- NOTE | 2020-07-07 06:06 | PDOC.FM ---
- Subjective Subjective: Patient reports he is feeling well. He denies headache, vision changes, chest pain, SOB, nausea, and abdominal pain. - Objective MAR Reviewed: Yes Vital Signs & Weight: Vital Signs (12 hours) Temp Pulse Resp BP BP Pulse Ox 07/07/20 04:01 98.7 F 89 19 96/46 L 100 07/06/20 23:51 98.7 F 88 19 126/69 100 07/06/20 20:18 98.9 F 90 18 110/51 L 100 07/06/20 20:00 98.9 F 90 18 110/51 L 100 Weight Admit Weight 112.037 kg Weight 109.769 kg I&O: 07/05/20 07/06/20 07/07/20 06:59 06:59 06:59 Intake Total 120 1460 Output Total 0 Balance 120 1460 Result Diagrams: 07/07/20 05:28 07/07/20 05:27 Phys Exam - Physical Examination Constitutional: NAD HEENT: moist MMs, sclera anicteric Neck: full ROM Respiratory: clear to auscultation bilateral Cardiovascular: RRR, no significant murmur Gastrointestinal: soft, non-tender, positive bowel sounds Musculoskeletal: no edema Neurological: non-focal Psychiatric: normal affect, A&O x 3 Skin: no rash Dx/Plan - Plan Plan: 70yo male w/ PMH ESRD on HD MWF, HTN, CAD, DM2 who presents with bleeding from L upper arm fistula site. #Anemia 2/2 bleeding from non-functioning LUE fistula site -Hgb 9.7 > 9.1 > 8.5. Asymptomatic -Dr. Hudson consulted in ED. Dr. Villegas (trauma surgery) evaluated 07/06, no indication for inpatient intervention unless emergent dialysis is required #Hypotension in setting of hx HTN -SBP 96/55, 92/26, bolused 500cc with improvement to SBP 100s. LR @ 50 d/c on 07/06 -Patient runs low at baseline, asx -Hold antihypertensives #ESRD on HD -Electrolytes stable -Dr. Mota consulted. Dialysis attempted 07/06 but unable to obtain access. F/u recs #CAD -hold ASA #DM2, HLD -continue home meds Dvt ppx: hold Code: Full Diet: CC/RD-HP PCP: Servando Sherwood Dispo: [facility] pending further medical management. Will change to inpatient status. Needs continued monitoring of renal function as patient may require immediate IV access for dialysis. Dialysis not completed on 07/06.
[2020-07-07 06:09] LABS: Anion Gap 13 mmol/L (10-20); BUN (Urea Nitrogen) 40 mg/dL (8.4-25.7); Calc. Creatinine Clearance 14 mL/min (70-130); Calcium 6.7 mg/dL (7.8-10.44); Carbon Dioxide 22 mmol/L (23-31); Chloride 105 mmol/L (98-107); Glucose 86 mg/dL (80-115); Potassium 3.9 mmol/L (3.5-5.1); Sodium 136 mmol/L (136-145)
[2020-07-07] MEDS: Pregabalin 75 MG CAP PO SCH (09:41)
[2020-07-07] MEDS: Acetaminophen 500 MG TAB PO PRN (18:55)
[2020-07-08] MEDS: HYDROcodone/Acetaminophen 10/325 mg Tablet PO PRN (03:31)
[2020-07-08 05:58] LABS: #Eosinphils 0.2 thou/uL (0.0-0.7); #Lymphocytes 1.4 thou/uL (1.20-3.40); #Monocytes 0.5 thou/uL (0.11-0.59); #Neutrophils 5.8 thou/uL (1.40-6.50); %Basophils 0.3 % (0.0-1.0); %Eosinophils 2.3 % (0.0-10.0); %Lymphocytes 17.7 % (21.0-51.0); %Monocytes 6.5 % (0.0-10.0); %Neutrophils 73.2 % (42.0-75.0); Hemoglobin 8.1 g/dL (14.0-18.0); Mean Corpuscular HGB CONC 33.8 g/dL (32.0-36.0); Mean Corpuscular Hemoglobin 32.8 pg (27.0-31.0); Mean Corpuscular Volume 96.9 fL (78.0-98.0); Mean Platelet Volume 8.6 fL (7.4-10.4); Platelet Count 106 thou/uL (130-400); RBC Distribution Width 13.1 % (11.5-14.5); Red Blood Cell (RBC) Count 2.48 mill/uL (4.70-6.10); White Blood Cell (WBC) Count 7.9 thou/uL (4.8-10.8)
--- NOTE | 2020-07-08 06:10 | PDOC.FM ---
- Subjective Subjective: Reports continued chronic bilateral foot pain relieved by removing heavy blankets. Denies tenderness to touch, numbness or tingling. Denies headache, chest pain, SOB, palpitations, nausea and abdominal pain. - Objective MAR Reviewed: Yes Vital Signs & Weight: Vital Signs (12 hours) Temp Pulse Resp BP BP Pulse Ox 07/08/20 03:30 127/66 07/08/20 03:18 97.8 F 100 16 107/51 L 97 07/07/20 23:52 99.5 F 96 18 115/57 L 96 07/07/20 20:38 98.7 F 103 H 16 108/61 95 07/07/20 18:55 99.7 F H Weight Admit Weight 112.037 kg Weight 109.769 kg I&O: 07/06/20 07/07/20 07/08/20 06:59 06:59 06:59 Intake Total 120 1460 550 Output Total 0 Balance 120 1460 550 Result Diagrams: 07/08/20 05:31 07/08/20 05:31 Phys Exam - Physical Examination Constitutional: NAD HEENT: moist MMs, sclera anicteric Neck: full ROM Respiratory: clear to auscultation bilateral Cardiovascular: RRR, no significant murmur Gastrointestinal: soft, non-tender, positive bowel sounds Musculoskeletal: no edema Foot nontender bilaterally Neurological: non-focal Psychiatric: normal affect, A&O x 3 Deviation from normal: Chronic skin changes on lower extremities bilterally Dx/Plan - Plan Plan: 70yo male w/ PMH ESRD on HD MWF, HTN, CAD, DM2 who presents with bleeding from L upper arm fistula site. #Anemia 2/2 bleeding from non-functioning LUE fistula site -Hgb 9.7 > 9.1 > 8.5. Asymptomatic -Dr. Hudson consulted in ED. Dr. Villegas (trauma surgery) evaluated 07/06, reported no indication for inpatient intervention unless emergent dialysis is required -F/u Dr. Hudson recs this am #Hypotension in setting of hx HTN -SBP 96/55, 92/26, bolused 500cc with improvement to SBP 100s. LR @ 50 d/c on 07/06 -Patient runs low at baseline, asx -Hold antihypertensives #ESRD on HD -Electrolytes stable -Dr. Mota consulted. Dialysis attempted 1/9 but unable to obtain access. F/u recs #CAD -hold ASA #DM2, HLD -continue home meds Dvt ppx: hold Code: Full Diet: CC/RD-HP PCP: Servando Sherwood Dispo: [facility] TURNER pending further medical management Addendum - Attending - Attending Attestation Date/Time: 07/08/20 1031 I personally evaluated the patient and discussed the management with Dr. Reed. I agree with the History, Examination, Assessment and Plan documented above with any addition or exceptions noted below. Patient here with hemorrhage from HD fistula. His surgeon will see today and further recs/mgmt pending that consultation. Will need HD access today as he is due for his session.
[2020-07-08 06:15] LABS: Anion Gap 16 mmol/L (10-20); BUN (Urea Nitrogen) 51 mg/dL (8.4-25.7); Calc. Creatinine Clearance 11 mL/min (70-130); Calcium 6.6 mg/dL (7.8-10.44); Carbon Dioxide 20 mmol/L (23-31); Chloride 103 mmol/L (98-107); Glucose 87 mg/dL (80-115); Sodium 135 mmol/L (136-145)
[2020-07-08] MEDS: Pregabalin 75 MG CAP PO SCH (09:42)
[2020-07-08] MEDS: Acetaminophen 500 MG TAB PO PRN ×2 (09:43→22:21)
[2020-07-08] MEDS ORDERED: CEFAZOLIN 2 GM in Premix Bag 1 BAG IVPB SCH (12:00)
--- NOTE | 2020-07-08 12:50 | PRG ---
DATE OF SERVICE: 07/08/2020 Mr. 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 He does have more proximal left upper arm AV fistula access. However, the patient states that when it is accessed, he has prolonged bleeding around the needle access site such that it can dialyze him more than an hour. They have difficulty accessing the fistula, cephalic vein upper arm more proximally. The patient does have proximal left upper arm stents. He has multiple stents upper cephalic vein and subclavian vein. Dr. Fairchild has been working on this fistula for many years, maintaining patency. The patient's dialysis fistula left upper arm is failing. Today I gave the patient the option of fistulogram with intervention to hopefully prolong the fistula for few more weeks or months but informed him that this is a failing fistula. The patient has IV access right AC, which I have placed orders to stat remove as this should not be placed in end-stage renal disease, especially with a failing fistula left arm where we will have to resort to the right arm for fistula access. Plan at this time is tomorrow place a hemodialysis catheter. Obtain ultrasound vein mapping right arm after removal of the AC IV, plan placement of right upper arm fistula or graft; if his electrolytes and he is stable for that tomorrow. If, however, he needs urgent dialysis before fistula, definitive access can be placed tomorrow. We will have to do this as an outpatient another day. Hopefully, we can accomplish this all tomorrow afternoon. The patient understands risks and benefits, consents. Left upper arm fistula has a good thrill and bruit. He has multiple stents, surgical site, distal third cephalic vein fistula above the antecubital fossa. There is room to access it, although there are stents and it is smaller in areas making access difficult and there is probably some degree of outflow obstruction due to multiple stents and interventions making access limited and difficult. Job ID: [id number]
--- NOTE | 2020-07-08 13:49 | ULT ---
BILATERAL UPPER EXTREMITY VEIN MAPPING: Date: 07/08/2020 HISTORY: End-stage renal disease; evaluate for dialysis access. FINDINGS: RIGHT UPPER EXTREMITY CEPHALIC VEIN Proximal Arm: 2.2 mm Mid Arm: 2.0 mm Distal Arm: 1.5 mm Antecubital Fossa: 2.4 mm Proximal Forearm: 2.3 mm Mid Forearm: 1.9 mm Distal Forearm: 1.4 mm BASILIC VEIN Proximal Arm: 3.1 mm Mid Arm: 3.0 mm Distal Arm: 3.2 mm Antecubital Fossa: 3.2 mm Proximal Forearm: 2.1 mm Mid Forearm: 1.5 mm Distal Forearm: 1.5 mm LEFT UPPER EXTREMITY CEPHALIC VEIN Proximal Arm: 8.7 mm Mid Arm: 6.7 mm Veins not evaluated below this level. Patient has a fistula on the left. BASILIC VEIN Proximal Arm: 7.1 mm Remainder of basilic was not assessed. RIGHT BRACHIAL ARTERY: 5.4 mm RIGHT RADIAL ARTERY: 3.3 mm RIGHT ULNAR ARTERY: 4.2 mm LEFT BRACHIAL ARTERY: 1.0 mm LEFT RADIAL ARTERY: 3.1 mm LEFT ULNAR ARTERY: 5.5 mm IMPRESSION: Vein mapping as discussed above. POS: MILDRED
[2020-07-09] MEDS: Acetaminophen 500 MG TAB PO PRN ×2 (04:22→22:26)
[2020-07-09 05:16] LABS: #Eosinphils 0.3 thou/uL (0.0-0.7); #Lymphocytes 1.5 thou/uL (1.20-3.40); #Monocytes 0.7 thou/uL (0.11-0.59); #Neutrophils 6.3 thou/uL (1.40-6.50); %Basophils 0.3 % (0.0-1.0); %Eosinophils 2.9 % (0.0-10.0); %Lymphocytes 17.6 % (21.0-51.0); %Monocytes 7.9 % (0.0-10.0); %Neutrophils 71.4 % (42.0-75.0); Hemoglobin 8.2 g/dL (14.0-18.0); Mean Corpuscular HGB CONC 33.6 g/dL (32.0-36.0); Mean Corpuscular Hemoglobin 32.5 pg (27.0-31.0); Mean Corpuscular Volume 96.7 fL (78.0-98.0); Mean Platelet Volume 8.5 fL (7.4-10.4); Platelet Count 130 thou/uL (130-400); RBC Distribution Width 13.1 % (11.5-14.5); Red Blood Cell (RBC) Count 2.51 mill/uL (4.70-6.10); White Blood Cell (WBC) Count 8.8 thou/uL (4.8-10.8)
[2020-07-09 05:42] LABS: Anion Gap 19 mmol/L (10-20); BUN (Urea Nitrogen) 64 mg/dL (8.4-25.7); Calc. Creatinine Clearance 10 mL/min (70-130); Calcium 6.3 mg/dL (7.8-10.44); Carbon Dioxide 18 mmol/L (23-31); Chloride 102 mmol/L (98-107); Glucose 84 mg/dL (80-115); Potassium 4.6 mmol/L (3.5-5.1); Sodium 134 mmol/L (136-145)
--- NOTE | 2020-07-09 06:41 | PDOC.FM ---
- Subjective Subjective: Reports sleep overnight due to frequently being woken up. Denies feeling feverish, chills, headache, chest pain, SOB, palpitations, abdominal pain, dysuria and edema. Bilateral foot pain has resolved. - Objective MAR Reviewed: Yes Vital Signs & Weight: Vital Signs (12 hours) Temp Pulse Resp BP BP Pulse Ox 07/09/20 04:22 100.1 F H 99/60 07/09/20 04:00 100.5 F H 99 18 93/52 L 95 07/08/20 23:51 99.4 F 99 20 132/71 96 07/08/20 22:21 100.3 F H 07/08/20 22:20 102 H 07/08/20 20:00 100.1 F H 123 H 22 H 132/71 96 Weight Admit Weight 112.037 kg Weight 109.769 kg I&O: 07/07/20 07/08/20 07/09/20 06:59 06:59 06:59 Intake Total 1460 1030 2160 Output Total 0 0 0 Balance 1460 1030 2160 Result Diagrams: 07/09/20 05:03 07/09/20 05:03 Phys Exam - Physical Examination Constitutional: NAD HEENT: moist MMs, sclera anicteric Neck: full ROM Respiratory: clear to auscultation bilateral Cardiovascular: RRR, no significant murmur Gastrointestinal: soft, non-tender, positive bowel sounds Musculoskeletal: no edema Neurological: non-focal Psychiatric: normal affect, A&O x 3 Skin: no rash Dx/Plan - Plan Plan: 70yo male w/ PMH ESRD on HD MWF, HTN, CAD, DM2 who presents with bleeding from L upper arm fistula site. #Anemia 2/2 hemorrhage of non-functioning LUE fistula site -Hgb 9.7 > 9.1 > 8.5 > 8.1. Asymptomatic -Dr. Villegas (trauma surgery) evaluated 07/06, reported no indication for inpatient intervention unless emergent dialysis is required -Dr. Hudson (general surgery) evaluated on 07/08, plan for hemodialysis catheter placement this am #Hypotension in setting of hx HTN -SBP 96/55, 92/26, bolused 500cc with improvement to SBP 100s. LR @ 50 d/c on 07/06 -Patient runs low at baseline, asx -Hold antihypertensives #ESRD on HD -Electrolytes stable -Dr. Mota consulted. Dialysis attempted 07/06 but unable to obtain access #CAD -hold ASA #DM2, HLD -continue home meds Dvt ppx: hold Code: Full Diet: CC/RD-HP PCP: Servando Sherwood Dispo: [facility] TURNER pending further management Addendum - Attending - Attending Attestation Date/Time: 07/09/20 1804 I personally evaluated the patient and discussed the management with Dr. Reed. I agree with the History, Examination, Assessment and Plan documented above with any addition or exceptions noted below. Patient stable. Going for HD access revision/replacement today. HD as per Nephro. Further mgmt pending surgery and nephro recs.
[2020-07-09] MEDS: Pregabalin 75 MG CAP PO SCH (08:53)
[2020-07-09] MEDS ORDERED: Protamine Sulfate 50 MG/5 ML VIAL ONE (10:59)
[2020-07-09] MEDS ORDERED: Bupivacaine PF 0.5% 30 ML VIAL ONE ×2 (10:59→11:22)
[2020-07-09] MEDS ORDERED: Lidocaine 2% w/Epinephrine 1:200K 20 ML VIAL ONE (10:59)
[2020-07-09] MEDS ORDERED: Heparin 5,000 UNITS/ML VIAL ONE ×2 (10:59→12:41)
[2020-07-09] MEDS ORDERED: Sodium Chloride 0.9% 10 ML ONE ×2 (10:59→11:07)
[2020-07-09] MEDS ORDERED: Fentanyl 100 MCG/2 ML VIAL ONE ×3 (11:17→11:31)
[2020-07-09] MEDS ORDERED: Esmolol 100 MG/10 ML VIAL ONE (11:22)
[2020-07-09] MEDS ORDERED: ePHEDrine 50 MG/ML VIAL ONE (11:22)
[2020-07-09] MEDS ORDERED: PHENYLEPHRINE-NS 100 MCG/ML 10 ML SYRINGE ONE (11:22)
[2020-07-09] MEDS ORDERED: Midazolam HCl 2 mg/2 ml Vial ONE (11:30)
[2020-07-09] MEDS ORDERED: Propofol 1,000 MG/100 ML VIAL IV ONE (11:31)
[2020-07-09] MEDS ORDERED: Heparin 10,000 UNITS/ 10 ML VIAL ONE ×2 (12:42→12:58)
[2020-07-09] MEDS ORDERED: Phenylephrine 10 MG/ML VIAL ONE (12:43)
[2020-07-09] MEDS ORDERED: Sodium Chloride 0.9% 0 ML ONE (12:44)
[2020-07-09] MEDS ORDERED: Polyethylene Glycol 3350 17 GM Packet PO PRN (14:19)
--- NOTE | 2020-07-09 14:42 | RAD ---
Exam: Chest one view HISTORY:Central line placement Comparison: 09/05/2019 FINDINGS: Lines and tubes: Stable stent, along the left subclavian vasculature. Interval placement of right-sided HemoSplit dialysis catheter. Distal tip projects over the superior vena cava. Cardiac silhouette:Stable cardiac silhouette. Aorta: Stable atherosclerosis Pulmonary vessels: Normal Costophrenic angles: Clear LUNGS: No masses or consolidation. Pneumothorax: None Osseous abnormalities: Stable cervical fusion hardware, incompletely evaluated IMPRESSION: 1. Interval placement of right-sided hemodialysis catheter. 2. No pneumothorax.
--- NOTE | 2020-07-09 20:43 | OP ---
DATE OF PROCEDURE: 07/09/2020 PREOPERATIVE DIAGNOSES: End-stage renal disease, exhausted left upper arm, cephalic vein fistula with multiple stents in cephalic vein and subclavian vein left inaccessible, 20-year-old fistula. POSTOPERATIVE DIAGNOSES: End-stage renal disease, exhausted left upper arm, cephalic vein fistula with multiple stents in cephalic vein and subclavian vein left inaccessible, 20-year-old fistula. PROCEDURES PERFORMED: Right IJ cuffed tunneled hemodialysis catheter, fluoroscopy and ultrasound used, right arm primary fistula, cephalic vein forearm to proximal radial artery outflow basilic and cephalic vein, both noted good Doppler signal in the cephalic vein outflow, although preoperative ultrasound vein mapping suggests this to be equivocal size, perforating branch inadequate. ANESTHESIA: Regional, TIVA. DESCRIPTION OF PROCEDURE: The patient was taken to the operating room, where under regional and TIVA anesthesia, neck and chest and right upper extremity were prepared with ChloraPrep and draped in routine fashion. Using ultrasound guidance, right internal jugular vein was cannulated with trocar catheter, J-wire threaded, trocar catheter removed. Skin site enlarged sharply. Stab incision made over the right chest. AngioDynamics pre-curved. Hemodialysis catheter tunneled between the 2 incisions placing the fabric cuff beneath the skin exit site, securing with 3-0 nylon suture. Sterile dressing applied. Small and medium size dilators placed over the J-wire internal jugular vein removed. Dilator and Peel-Away sheath placed over the J-wire in superior vena cava. Dilator and J-wire were removed. Catheter placed with Peel-Away sheath. Peel-Away sheath removed. Fluoroscopic images revealed good line placement. Platysma was approximated with 4-0 Monocryl, skin with subdermal 4-0 Monocryl, and [place] glue applied. Each port aspirated blood, flushed with saline solution, heparinized solution, 1000 units heparin per mL, indicating volume . Right upper extremity being prepared with ChloraPrep and draped in routine fashion. Incision made in the proximal volar forearm below the antecubital fossa longitudinally in skin and subcutaneous tissue and the antecubital vein, perforating branch antecubital vein and proximal artery dissected free, surrounding silastic vessel loops. Nerves kept free of harm. Perforating branch dissected free but was inadequate, had to be ligated. The patient given 6000 units of heparin intravenously. Antecubital vein dissected free and spatulated over branch point and coronary dilators from 2 mm to 4 mm pass throughout the cephalic vein and basilic vein without obstruction. In cephalic vein, forearm to side proximal artery anastomosis created with continuous suture of 6-0 Prolene. Vascular control released. There was good Doppler signal in the basilic, cephalic vein outflow. Cephalic vein outflow seemed to be excellent throughout the most of the upper arm, even signal did not increase in intensity with occlusion of the basilic vein outflow. Both were left open due to chronicity of his IV access problems and question of adequacy of the cephalic vein. The patient given 25 mg of protamine intravenously. Subcutaneous tissues approximated with 3-0 Monocryl, skin with subdermal 4-0 Monocryl, and [place] glue applied. Job ID: [id number]
[2020-07-10] MEDS ORDERED: Lactated Ringer's 500 ML IV SCH (00:45)
[2020-07-10 00:48] LABS: #Eosinphils 0.1 thou/uL (0.0-0.7); #Lymphocytes 1.3 thou/uL (1.20-3.40); #Neutrophils 7.6 thou/uL (1.40-6.50); %Basophils 0.2 % (0.0-1.0); %Eosinophils 1.5 % (0.0-10.0); %Monocytes 10.3 % (0.0-10.0); %Neutrophils 75.1 % (42.0-75.0); Hemoglobin 9.5 g/dL (14.0-18.0); Mean Corpuscular HGB CONC 33.8 g/dL (32.0-36.0); Mean Corpuscular Volume 97.5 fL (78.0-98.0); Mean Platelet Volume 8.3 fL (7.4-10.4); Platelet Count 134 thou/uL (130-400); RBC Distribution Width 13.1 % (11.5-14.5); Red Blood Cell (RBC) Count 2.87 mill/uL (4.70-6.10); White Blood Cell (WBC) Count 10.1 thou/uL (4.8-10.8)
[2020-07-10 06:27] LABS: #Eosinphils 0.2 thou/uL (0.0-0.7); #Monocytes 0.6 thou/uL (0.11-0.59); #Neutrophils 4.8 thou/uL (1.40-6.50); %Basophils 0.4 % (0.0-1.0); %Eosinophils 2.6 % (0.0-10.0); %Lymphocytes 15.3 % (21.0-51.0); %Monocytes 9.1 % (0.0-10.0); %Neutrophils 72.6 % (42.0-75.0); Hemoglobin 7.6 g/dL (14.0-18.0); Mean Corpuscular HGB CONC 34.1 g/dL (32.0-36.0); Mean Corpuscular Hemoglobin 33.6 pg (27.0-31.0); Mean Corpuscular Volume 98.6 fL (78.0-98.0); Mean Platelet Volume 8.3 fL (7.4-10.4); Platelet Count 119 thou/uL (130-400); Red Blood Cell (RBC) Count 2.26 mill/uL (4.70-6.10); White Blood Cell (WBC) Count 6.6 thou/uL (4.8-10.8)
[2020-07-10 06:32] LABS: Anion Gap 16 mmol/L (10-20); BUN (Urea Nitrogen) 30 mg/dL (8.4-25.7); Calc. Creatinine Clearance 19 mL/min (70-130); Calcium 6.3 mg/dL (7.8-10.44); Carbon Dioxide 20 mmol/L (23-31); Chloride 102 mmol/L (98-107); Glucose 96 mg/dL (80-115); Potassium 4.2 mmol/L (3.5-5.1); Sodium 134 mmol/L (136-145)
--- NOTE | 2020-07-10 06:59 | PDOC.FM ---
- Subjective Subjective: Reports generalized pain since undergoing hemodialysis catheter placement yesterday, not relieved by Tylenol. Says his BP "always runs low" and each hospitalization it is noted. Denies headache, lightheadedness, dizziness, fatigue, chest pain, SOB, abdominal pain and edema. - Objective MAR Reviewed: Yes Vital Signs & Weight: Vital Signs (12 hours) Temp Pulse Resp BP Pulse Ox 07/10/20 04:10 98.9 F 127 H 22 H 106/55 L 100 07/10/20 03:15 99.5 F 126 H 21 H 88/53 L 100 07/10/20 01:34 109 H 90/56 L 07/10/20 00:18 99.5 F 111 H 19 85/53 L 100 07/09/20 22:20 99.3 F 128 H 22 H 100/54 L 100 07/09/20 20:10 98.7 F 136 H 22 H 89/56 L 100 Weight Admit Weight 112.037 kg Weight 109.769 kg I&O: 07/08/20 07/09/20 07/10/20 06:59 06:59 06:59 Intake Total 1030 2160 1590 Output Total 0 0 Balance 1030 2160 1590 Result Diagrams: 07/10/20 05:51 07/10/20 05:51 Phys Exam - Physical Examination Constitutional: NAD HEENT: moist MMs, sclera anicteric Neck: full ROM Respiratory: clear to auscultation bilateral Cardiovascular: RRR, no significant murmur Gastrointestinal: soft, non-tender, positive bowel sounds Musculoskeletal: no edema Nontender to palpation Neurological: moves all 4 limbs Psychiatric: normal affect, A&O x 3 Skin: no rash Deviation from normal: Incision site clean without erythema Dx/Plan - Plan Plan: 70yo male w/ PMH ESRD on HD MWF, HTN, CAD, DM2 who presents with bleeding from L upper arm fistula site. #Anemia 2/2 hemorrhage of non-functioning LUE fistula site s/p R sided hemodialysis catheter placement -Hgb 9.7 > 9.1 > 8.5 > 8.1 > 8.2. Trended 9.5 > 7.6 after catheter placement. Asymptomatic -Repeat H&H this am. Consider transfusion pending result -Dr. Villegas (trauma surgery) evaluated 07/06, reported no indication for inpatient intervention unless emergent dialysis is required -Dr. Hudson (general surgery) evaluated on 07/08. Underwent R sided hemodialysis catheter placement on 07/09. Will f/u in 2 weeks outpatient #Hypotension in setting of hx HTN -Recurrent during hospitalization. Overnight BP 90s systolic, improved to 100s systolic after 500ml bolus x 2 -Patient runs low at baseline, asx -Hold antihypertensives #ESRD on HD -Electrolytes stable -Dr. Mota consulted. Dialysis attempted 07/06 but unable to obtain access. Underwent dialysis on 07/09 after catheter placement #CAD -hold ASA #DM2, HLD -continue home meds Dvt ppx: hold Code: Full Diet: CC/RD-HP PCP: Servando Sherwood Dispo: Servando TURNER pending further medical management Addendum - Attending - Attending Attestation Date/Time: 07/10/20 2090 I personally evaluated the patient and discussed the management with Dr. Reed. I agree with the History, Examination, Assessment and Plan documented above with any addition or exceptions noted below.
[2020-07-10] MEDS: Calcium Carbonate 500 MG ChewTAB PO SCH (07:45)
[2020-07-10] MEDS: Pregabalin 75 MG CAP PO SCH (07:45)
[2020-07-10] MEDS ORDERED: Heparin 10,000 UNITS/ 10 ML VIAL ONE (13:10)
[2020-07-10] MEDS: HYDROcodone/Acetaminophen 10/325 mg Tablet PO PRN (17:19)
[2020-07-10] MEDS: Acetaminophen 500 MG TAB PO PRN (20:17)
[2020-07-11] MEDS ORDERED: hydrOXYzine 25 MG TAB PO SCH (01:30)
[2020-07-11] MEDS: Acetaminophen 500 MG TAB PO PRN (03:13)
--- NOTE | 2020-07-11 07:10 | PDOC.FM ---
- Subjective Subjective: Says generalized pain has improved, only experiencing right hand pain now. Denies lightheadedness, dizziness, fatigue, headache, vision changes, chest pain, SOB and nausea. Is ready to go home. - Objective MAR Reviewed: Yes Vital Signs & Weight: Vital Signs (12 hours) Temp Pulse Resp BP Pulse Ox 07/11/20 03:17 98.7 F 110 H 18 100/51 L 99 07/11/20 00:00 95 19 80/45 L 98 07/10/20 21:12 81/49 L 07/10/20 20:47 98.7 F 109 H 18 75/49 L 99 07/10/20 20:30 99 Weight Admit Weight 112.037 kg Weight 109.769 kg I&O: 07/10/20 07/11/20 07/12/20 06:59 06:59 06:59 Intake Total 1590 450 Output Total 1800 Balance 1590 -1350 Result Diagrams: 07/10/20 05:51 07/10/20 05:51 Phys Exam - Physical Examination Constitutional: NAD Diaper in place HEENT: moist MMs, sclera anicteric Neck: full ROM Respiratory: no wheezing, clear to auscultation bilateral Cardiovascular: RRR, no significant murmur Gastrointestinal: soft, non-tender, positive bowel sounds Musculoskeletal: no edema Neurological: moves all 4 limbs Psychiatric: normal affect, A&O x 3 Skin: no rash Deviation from normal: Chronic dermatitis, LE bilat Dx/Plan - Plan Plan: 70yo male w/ PMH ESRD on HD MWF, HTN, CAD, DM2 who presents with bleeding from L upper arm fistula site. #Anemia 2/2 hemorrhage of non-functioning LUE fistula site s/p R sided hemodialysis catheter placement -Hgb 9.7 > 9.1 > 8.5 > 8.1 > 8.2. Trended 9.5 > 7.6 after catheter placement. Asymptomatic -Dr. Villegas (trauma surgery) evaluated 07/06, reported no indication for inpatient intervention unless emergent dialysis is required -Dr. Hudson (general surgery) evaluated on 07/08. Underwent R sided hemodialysis catheter placement on 07/09. Will f/u in 2 weeks outpatient #Hypotension in setting of hx HTN -Recurrent during hospitalization. Overnight SBP 120 -> 75 -> 80 -> 100 -Patient runs low at baseline (SBP 90s), asx -Hold antihypertensives #ESRD on HD -Electrolytes stable -Dr. Mota consulted. Dialysis attempted 07/06 but unable to obtain access. Underwent dialysis on 07/10 #CAD -hold ASA #DM2, HLD -continue home meds Dvt ppx: hold Code: Full Diet: CC/RD-HP PCP: Servando Sherwood Dispo: Servando [place] pending further medical management Addendum - Attending - Attending Attestation Date/Time: 07/11/20 1123 I personally evaluated the patient and discussed the management with Dr. Reed. I agree with the History, Examination, Assessment and Plan documented above with any addition or exceptions noted below.
[2020-07-11] MEDS: Calcium Carbonate 500 MG ChewTAB PO SCH (08:47)
[2020-07-11] MEDS: Pregabalin 75 MG CAP PO SCH (08:47)
[2020-07-11] MEDS: Metoprolol Tartrate 25 MG TAB PO SCH ×2 (11:51→20:51)
[2020-07-11 12:06] LABS: Anion Gap 15 mmol/L (10-20); BUN (Urea Nitrogen) 26 mg/dL (8.4-25.7); Calc. Creatinine Clearance 20 mL/min (70-130); Calcium 6.9 mg/dL (7.8-10.44); Carbon Dioxide 24 mmol/L (23-31); Chloride 103 mmol/L (98-107); Glucose 113 mg/dL (80-115); Potassium 4.1 mmol/L (3.5-5.1); Sodium 138 mmol/L (136-145)
[2020-07-11 16:16] LABS: #Eosinphils 0.5 thou/uL (0.0-0.7); #Lymphocytes 1.2 thou/uL (1.20-3.40); #Monocytes 0.5 thou/uL (0.11-0.59); #Neutrophils 5.2 thou/uL (1.40-6.50); %Basophils 0.3 % (0.0-1.0); %Eosinophils 6.8 % (0.0-10.0); %Lymphocytes 16.5 % (21.0-51.0); %Neutrophils 69.5 % (42.0-75.0); Mean Corpuscular HGB CONC 32.3 g/dL (32.0-36.0); Mean Corpuscular Hemoglobin 31.4 pg (27.0-31.0); Mean Corpuscular Volume 97.3 fL (78.0-98.0); Mean Platelet Volume 8.4 fL (7.4-10.4); Platelet Count 130 thou/uL (130-400); RBC Distribution Width 12.9 % (11.5-14.5); Red Blood Cell (RBC) Count 2.87 mill/uL (4.70-6.10); White Blood Cell (WBC) Count 7.5 thou/uL (4.8-10.8)
--- NOTE | 2020-07-11 19:22 | PRG ---
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 Today, his discharge has been hindered by hypotension. His hemoglobin is 9, white count is 7.5. I have established a new fistula in his right arm and a hemodialysis catheter in right IJ. Left arm wound noted to have purulent drainage. They have been unable to access the left arm fistula. At this point, would recommend going to the operating room tomorrow to open the wounds in left arm, ligate his left arm fistula to take care of the postoperative infection. Wound care will be arranged. Job ID: [id number]
[2020-07-11] MEDS: Acetaminophen 325 MG TAB PO PRN (20:35)
[2020-07-11] MEDS ORDERED: Metoprolol Tartrate 25 MG TAB PO SCH (21:00)
[2020-07-12] MEDS: Acetaminophen 325 MG TAB PO PRN (06:10)
--- NOTE | 2020-07-12 07:18 | PDOC.FM ---
- Subjective Subjective: Says he feels well. Denies lightheadedness, dizziness, fatigue, headache, vision changes, chest pain, SOB, nausea, abdominal pain, and arm pain bilaterally. - Objective MAR Reviewed: Yes Vital Signs & Weight: Vital Signs (12 hours) Temp Pulse Resp BP BP Pulse Ox 07/12/20 04:54 98.8 F 89 18 100/65 96 07/12/20 00:31 98.8 F 85 18 95/64 97 07/11/20 20:30 97.9 F 89 18 90/55 L 97 07/11/20 20:25 97 Weight Admit Weight 112.037 kg Weight 109.769 kg I&O: 07/11/20 07/12/20 07/13/20 06:59 06:59 06:59 Intake Total 450 550 Output Total 1800 Balance -1350 550 Result Diagrams: 07/12/20 08:55 07/12/20 08:55 Phys Exam - Physical Examination Constitutional: NAD HEENT: moist MMs, sclera anicteric Neck: full ROM Respiratory: no wheezing, clear to auscultation bilateral Cardiovascular: RRR, no significant murmur Gastrointestinal: soft, non-tender, positive bowel sounds Musculoskeletal: no edema Neurological: moves all 4 limbs Psychiatric: normal affect, A&O x 3 Skin: no rash Deviation from normal: NOLBERTO wrap on left upper arm, no erythema present Dx/Plan - Plan Plan: 70yo male w/ PMH ESRD on HD MWF, HTN, CAD, DM2 who presents with bleeding from L upper arm fistula site. #Anemia 2/2 hemorrhage of non-functioning LUE fistula site s/p R sided hemodialysis catheter placement -Hgb 9.7 > 9.1 > 8.5 > 8.1 > 8.2. Trended 9.5 > 7.6 > 9 > 9 after catheter placement. Asymptomatic -Dr. Villegas (trauma surgery) evaluated 07/06, reported no indication for inpatient intervention unless emergent dialysis is required -Dr. Hudson (general surgery) evaluated on 07/08. Underwent R sided hemodialysis catheter placement on 07/09. Evaluated again on 07/11 - will take to OR today to ligate L arm fistula due to possible post-op infection #Hypotension in setting of hx HTN -Recurrent during hospitalization. Overnight SBP 80s-100s with HR 80s -Patient runs low at baseline (SBP 90s), asx -Hold antihypertensives #ESRD on HD -Electrolytes stable -Dr. Mota consulted. Dialysis attempted 07/06 but unable to obtain access. Underwent dialysis on 07/10, 07/11 #CAD -hold ASA #DM2, HLD -continue home meds Dvt ppx: hold Code: Full Diet: CC/RD-HP [facility]: [facility] Addendum - Attending - Attending Attestation Date/Time: 07/12/20 8560 I personally evaluated the patient and discussed the management with Dr. Reed. I agree with the History, Examination, Assessment and Plan documented above with any addition or exceptions noted below. Patient going back to OR today for L infected fistula and ligation. He will continue to need HD through his temporary catheter until R sided fistula matures. HR improved.
[2020-07-12 09:11] LABS: #Eosinphils 0.4 thou/uL (0.0-0.7); #Lymphocytes 1.2 thou/uL (1.20-3.40); #Monocytes 0.3 thou/uL (0.11-0.59); #Neutrophils 3.8 thou/uL (1.40-6.50); %Basophils 0.7 % (0.0-1.0); %Eosinophils 6.8 % (0.0-10.0); %Lymphocytes 21.2 % (21.0-51.0); %Monocytes 5.3 % (0.0-10.0); %Neutrophils 66.2 % (42.0-75.0); Hemoglobin 8.3 g/dL (14.0-18.0); Mean Platelet Volume 7.4 fL (7.4-10.4); Platelet Count 150 thou/uL (130-400); RBC Distribution Width 12.9 % (11.5-14.5); Red Blood Cell (RBC) Count 2.52 mill/uL (4.70-6.10); White Blood Cell (WBC) Count 5.8 thou/uL (4.8-10.8)
[2020-07-12] MEDS ORDERED: Lidocaine 2% w/Epinephrine 1:200K 20 ML VIAL ONE (09:12)
[2020-07-12] MEDS ORDERED: Bupivacaine PF 0.5% 30 ML VIAL ONE (09:12)
[2020-07-12] MEDS ORDERED: Heparin 5,000 UNITS/ML VIAL ONE (09:12)
[2020-07-12] MEDS ORDERED: Protamine Sulfate 50 MG/5 ML VIAL ONE (09:12)
[2020-07-12 09:32] LABS: Anion Gap 13 mmol/L (10-20); BUN (Urea Nitrogen) 25 mg/dL (8.4-25.7); Calc. Creatinine Clearance 19 mL/min (70-130); Calcium 6.6 mg/dL (7.8-10.44); Carbon Dioxide 27 mmol/L (23-31); Chloride 101 mmol/L (98-107); Glucose 85 mg/dL (80-115); Potassium 3.9 mmol/L (3.5-5.1); Sodium 137 mmol/L (136-145)
[2020-07-12] MEDS ORDERED: Bupivacaine HCl 0.5%/Epinephrine 1:200,000/PF 30 ml Vial ONE (09:36)
[2020-07-12] MEDS ORDERED: Heparin 10,000 UNITS/ 10 ML VIAL ONE (10:00)
[2020-07-12] MEDS: Calcium Carbonate 500 MG ChewTAB PO SCH (10:20)
[2020-07-12] MEDS: Pregabalin 75 MG CAP PO SCH (10:20)
[2020-07-12] MEDS ORDERED: Fentanyl 100 MCG/2 ML VIAL ONE (13:31)
[2020-07-12] MEDS ORDERED: Sodium Chloride 0.9% 20 ML ONE (13:48)
[2020-07-12] MEDS ORDERED: Vancomycin 1 GM in Premix Bag 1 BAG IVPB SCH (14:30)
--- NOTE | 2020-07-12 15:14 | OP ---
DATE OF PROCEDURE: 07/12/2020 PREOPERATIVE DIAGNOSES: End-stage renal disease, multiple left subclavian vein stent and cephalic vein stent, status post repair left arm AV fistula aneurysm that was bleeding now with a wound infection and unable to access the left arm fistula, status post new right arm fistula and hemodialysis catheter this hospitalization, poor IV access. POSTOPERATIVE DIAGNOSES: End-stage renal disease, multiple left subclavian vein stent and cephalic vein stent, status post repair left arm AV fistula aneurysm that was bleeding now with a wound infection and unable to access the left arm fistula, status post new right arm fistula and hemodialysis catheter this hospitalization, poor IV access. PROCEDURES PERFORMED: 1. Left upper arm incision and drainage of abscess with ligation of fistula and excision of a segment and wound VAC application. 2. Right femoral vein triple-lumen catheter central line. ANESTHESIA: Regional, TIVA, local 0.5% Marcaine 30 mL mixed with 1% Xylocaine with epinephrine 20 mL. DESCRIPTION OF PROCEDURE: The patient was taken to the operating room, where under regional anesthesia, left upper extremity was prepared with ChloraPrep and draped in routine fashion. Local anesthetic mixture was infiltrated into the skin and subcutaneous tissue and the previous operative incision was opened unroofing a large abscess. The aneurysm repair was intact and not bleeding. However, the fistula was entirely exposed over about 8 cm area. The fistula was ligated with 3-0 Prolene suture on either end and then a vascular clamp placed on the arterial inflow in the antecubital side and fistula excised. Stump ligated with to and fro sutures of 3-0 Prolene locking suture. Clamp was released. Wound was irrigated. Wound Care Team arrived to place a wound VAC. Right groin was prepared with ChloraPrep, draped in routine fashion. Local anesthetic was infiltrated in the skin and subcutaneous tissue. Seldinger technique was used to place a femoral vein catheter triple-lumen and secured with 3-0 nylon suture. Sterile dressing was applied. Each port aspirated blood and flushed with saline solution. Job ID: [id number]
[2020-07-12] MEDS: HYDROcodone/Acetaminophen 10/325 mg Tablet PO PRN (16:06)
[2020-07-12] MEDS: Acetaminophen 500 MG TAB PO PRN (23:16)
[2020-07-12] MEDS: traMADol HCl 50 MG TAB PO PRN (23:17)
[2020-07-13 06:25] LABS: #Eosinphils 0.4 thou/uL (0.0-0.7); #Lymphocytes 0.9 thou/uL (1.20-3.40); #Monocytes 0.5 thou/uL (0.11-0.59); #Neutrophils 3.2 thou/uL (1.40-6.50); %Basophils 0.1 % (0.0-1.0); %Eosinophils 7.5 % (0.0-10.0); %Lymphocytes 18.2 % (21.0-51.0); %Monocytes 9.2 % (0.0-10.0); Hemoglobin 8.5 g/dL (14.0-18.0); Mean Corpuscular HGB CONC 33.3 g/dL (32.0-36.0); Mean Corpuscular Hemoglobin 32.6 pg (27.0-31.0); Mean Platelet Volume 7.4 fL (7.4-10.4); Platelet Count 169 thou/uL (130-400); RBC Distribution Width 12.7 % (11.5-14.5); Red Blood Cell (RBC) Count 2.62 mill/uL (4.70-6.10); White Blood Cell (WBC) Count 4.9 thou/uL (4.8-10.8)
[2020-07-13 06:38] LABS: Anion Gap 12 mmol/L (10-20); BUN (Urea Nitrogen) 20 mg/dL (8.4-25.7); Calc. Creatinine Clearance 22 mL/min (70-130); Calcium 6.8 mg/dL (7.8-10.44); Carbon Dioxide 28 mmol/L (23-31); Chloride 101 mmol/L (98-107); Glucose 89 mg/dL (80-115); Potassium 3.8 mmol/L (3.5-5.1); Sodium 137 mmol/L (136-145)
--- NOTE | 2020-07-13 06:44 | PDOC.FM ---
- Subjective Subjective: No acute overnight events. Reports bilateral arm pain - post op pain in L arm, neuropathic pain in R arm that is his usual neuropathy. Difficulty lifting both of his arms to his face due to pain after surgery. - Objective Vital Signs & Weight: Vital Signs (12 hours) Temp Pulse Resp BP Pulse Ox 07/13/20 03:13 98.6 F 86 16 125/74 100 07/12/20 23:25 98.9 F 88 16 130/74 100 07/12/20 20:25 100 07/12/20 19:40 98.6 F 90 16 112/70 100 Weight Admit Weight 112.037 kg Weight 109.769 kg I&O: 07/11/20 07/12/20 07/13/20 06:59 06:59 06:59 Intake Total 450 550 720 Output Total 1800 0 Balance -1350 550 720 Result Diagrams: 07/13/20 06:05 07/13/20 06:05 Phys Exam - Physical Examination Constitutional: NAD HEENT: moist MMs Neck: supple Respiratory: no wheezing decreased breath sounds bilaterally Cardiovascular: RRR, no significant murmur Gastrointestinal: soft, non-tender Neurological: moves all 4 limbs (difficulty with lifting bilateral UE s/p fistula surgery) Psychiatric: normal affect, A&O x 3 Skin: normal turgor Deviation from normal: hemodialysis catheter R chest, stitches over R fistula, LUE dressing c/d/i Dx/Plan - Plan Plan: 70yo male w/ PMH ESRD on HD MWF, HTN, CAD, DM2 who presents with bleeding from L upper arm fistula site. #Anemia 2/2 hemorrhage of non-functioning LUE fistula site s/p R sided hemodialysis catheter placement #Abscess LUE fistula site -Hgb 9.7 > 9.1 > 8.5 > 8.1 > 8.2. Trended 9.5 > 7.6 > 9 > 9 after catheter placement. Asymptomatic -Dr. Villegas (trauma surgery) evaluated 07/06, reported no indication for inpatient intervention unless emergent dialysis is required -Dr. Hudson (general surgery) evaluated on 07/08. Underwent R sided hemodialysis catheter placement on 07/09. - 07/12: OR for ligation L arm fistula and I&D abscess associated with LUE fistula site - not currently on abx - VSS since 07/12 procedure, f/u gen surg recs #Hypotension in setting of hx HTN -Recurrent during hospitalization. Overnight SBP 80s-100s with HR 80s -Patient runs low at baseline (SBP 90s), asx -Hold antihypertensives #ESRD on HD - usually MWF dialysis -Electrolytes stable -Dr. Mota consulted. Dialysis attempted 07/06 but unable to obtain access. Underwent dialysis on 07/10, 07/11 #CAD -hold ASA #DM2, HLD -continue home meds Dvt ppx: hold Code: Full Diet: CC/RD-HP PCP: Servando Sherwood Dispo: Servando TURNER pending further medical management Addendum - Attending - Attending Attestation Date/Time: 07/13/20 7553 I personally evaluated the patient and discussed the management with Dr. Piña. I agree with the History, Examination, Assessment and Plan documented above with any addition or exceptions noted below. The patient had difficulty raising his arms due to bandages this morning. Will f/u with surgery recs. Dialysis per nephro. Pain meds on board.
[2020-07-13] MEDS: Calcium Carbonate 500 MG ChewTAB PO SCH (09:00)
[2020-07-13] MEDS: Pregabalin 75 MG CAP PO SCH (09:00)
[2020-07-13] MEDS: Metoprolol Tartrate 25 MG TAB PO SCH ×2 (09:00→20:50)
[2020-07-13] MEDS: HYDROcodone/Acetaminophen 10/325 mg Tablet PO PRN ×2 (09:02→21:03)
[2020-07-13] MEDS: traMADol HCl 50 MG TAB PO PRN (14:47)
[2020-07-14] MEDS: traMADol HCl 50 MG TAB PO PRN ×2 (02:48→20:50)
[2020-07-14 06:01] LABS: #Eosinphils 0.5 thou/uL (0.0-0.7); #Lymphocytes 1.1 thou/uL (1.20-3.40); #Monocytes 0.4 thou/uL (0.11-0.59); %Basophils 0.4 % (0.0-1.0); %Eosinophils 10.1 % (0.0-10.0); %Lymphocytes 22.3 % (21.0-51.0); %Monocytes 8.7 % (0.0-10.0); %Neutrophils 58.6 % (42.0-75.0); Hemoglobin 8.2 g/dL (14.0-18.0); Mean Corpuscular HGB CONC 33.5 g/dL (32.0-36.0); Mean Corpuscular Hemoglobin 32.8 pg (27.0-31.0); Mean Corpuscular Volume 97.9 fL (78.0-98.0); Mean Platelet Volume 7.2 fL (7.4-10.4); Platelet Count 169 thou/uL (130-400); RBC Distribution Width 12.6 % (11.5-14.5); White Blood Cell (WBC) Count 5.1 thou/uL (4.8-10.8)
[2020-07-14] MEDS: HYDROcodone/Acetaminophen 10/325 mg Tablet PO PRN ×3 (06:06→23:19)
[2020-07-14 06:17] LABS: Anion Gap 13 mmol/L (10-20); BUN (Urea Nitrogen) 27 mg/dL (8.4-25.7); Calc. Creatinine Clearance 17 mL/min (70-130); Calcium 6.6 mg/dL (7.8-10.44); Carbon Dioxide 28 mmol/L (23-31); Chloride 99 mmol/L (98-107); Glucose 78 mg/dL (80-115); Sodium 136 mmol/L (136-145)
--- NOTE | 2020-07-14 06:57 | PDOC.FM ---
- Subjective Subjective: No acute overnight events. Reports continued generalized weakness of bilateral UE, exacerbated by neuropathic pain. Some increased swelling in R hand as well, last dialysis was Wednesday AM. No new complaints this AM. - Objective Vital Signs & Weight: Vital Signs (12 hours) Temp Pulse Resp BP Pulse Ox 07/14/20 00:00 98.8 F 75 16 139/77 97 07/13/20 20:00 100 07/13/20 19:46 99.0 F 77 16 142/85 H 100 Weight Admit Weight 112.037 kg Weight 109.769 kg I&O: 07/12/20 07/13/20 07/14/20 06:59 06:59 06:59 Intake Total 857 159 7998 Output Total 0 Balance 469 573 0699 Result Diagrams: 07/14/20 05:27 07/14/20 05:27 Phys Exam - Physical Examination Constitutional: NAD HEENT: moist MMs Neck: supple Respiratory: clear to auscultation bilateral Cardiovascular: RRR, no significant murmur Gastrointestinal: soft, non-tender Musculoskeletal: edema present (R hand mild edema, LUE in compressive dressing) wound vac applied to LUE with serosanguinous drainage Neurological: moves all 4 limbs Psychiatric: normal affect, A&O x 3 Skin: normal turgor Deviation from normal: bilateral feet dressings c/d/i Dx/Plan - Plan Plan: 70yo male w/ PMH ESRD on HD MWF, HTN, CAD, DM2 who presents with bleeding from L upper arm fistula site. #Anemia 2/2 hemorrhage of non-functioning LUE fistula site s/p R sided hemodialysis catheter placement #Abscess LUE fistula site -Hgb 9.7 > 9.1 > 8.5 > 8.1 > 8.2. Trended 9.5 > 7.6 > 9 > 9 after catheter placement. Asymptomatic -Dr. Villegas (trauma surgery) evaluated 07/06, reported no indication for inpatient intervention unless emergent dialysis is required -Dr. Hudson (general surgery) evaluated on 07/08. Underwent R sided hemodialysis catheter placement on 07/09. - 07/12: OR for ligation L arm fistula and I&D abscess associated with LUE fistula site - not currently on abx, did receive vanc 1 gm 07/12 and has not been dialyzed since - VSS since 07/12 procedure, f/u gen surg recs #Hypotension in setting of hx HTN -Recurrent during hospitalization. Overnight SBP 80s-100s with HR 80s -Patient runs low at baseline (SBP 90s), asx -Hold antihypertensives #ESRD on HD - usually MWF dialysis -Electrolytes stable -Dr. Mota consulted. Dialysis attempted 07/06 but unable to obtain access. Underwent dialysis on 07/10, 07/11, 07/12 #CAD -hold ASA #DM2, HLD -continue home meds Dvt ppx: hold Code: Full Diet: CC/RD-HP PCP: Servando [place] Laurie Sherwood [facility] Addendum - Attending - Attending Attestation Date/Time: 07/14/20 2175 I personally evaluated the patient and discussed the management with Dr. Piña. I agree with the History, Examination, Assessment and Plan documented above with any addition or exceptions noted below. Dialysis management per Dr. Mota. Will f/u with surgery recs regarding his left arm. Pain is stable. Once cleared by gen surg, but will return to [facility].
[2020-07-14] MEDS: Calcium Carbonate 500 MG ChewTAB PO SCH (08:54)
[2020-07-14] MEDS: Pregabalin 75 MG CAP PO SCH (08:55)
[2020-07-14] MEDS: Metoprolol Tartrate 25 MG TAB PO SCH ×2 (08:55→20:50)
[2020-07-14] MEDS: Acetaminophen 500 MG TAB PO PRN ×2 (11:38→20:49)
[2020-07-15 05:37] LABS: #Eosinphils 0.5 thou/uL (0.0-0.7); #Lymphocytes 1.1 thou/uL (1.20-3.40); #Monocytes 0.4 thou/uL (0.11-0.59); #Neutrophils 2.9 thou/uL (1.40-6.50); %Basophils 0.6 % (0.0-1.0); %Eosinophils 9.4 % (0.0-10.0); %Lymphocytes 22.2 % (21.0-51.0); %Monocytes 7.8 % (0.0-10.0); %Neutrophils 60.1 % (42.0-75.0); Hemoglobin 8.1 g/dL (14.0-18.0); Mean Corpuscular HGB CONC 31.9 g/dL (32.0-36.0); Mean Corpuscular Hemoglobin 31.2 pg (27.0-31.0); Mean Corpuscular Volume 97.8 fL (78.0-98.0); Mean Platelet Volume 7.4 fL (7.4-10.4); Platelet Count 170 thou/uL (130-400); RBC Distribution Width 12.5 % (11.5-14.5); White Blood Cell (WBC) Count 4.9 thou/uL (4.8-10.8)
[2020-07-15 06:07] LABS: Anion Gap 12 mmol/L (10-20); BUN (Urea Nitrogen) 34 mg/dL (8.4-25.7); Calc. Creatinine Clearance 14 mL/min (70-130); Calcium 6.5 mg/dL (7.8-10.44); Carbon Dioxide 28 mmol/L (23-31); Chloride 100 mmol/L (98-107); Glucose 127 mg/dL (80-115); Sodium 136 mmol/L (136-145)
--- NOTE | 2020-07-15 06:36 | PDOC.FM ---
- Subjective Subjective: Slept well overnight. Says generalized pain has resolved. Denies headache, vision changes, lightheadedness, dizziness, chest pain, SOB, nausea and abdominal pain. - Objective MAR Reviewed: Yes Vital Signs & Weight: Vital Signs (12 hours) Temp Pulse Resp BP Pulse Ox 07/15/20 04:00 98.7 F 71 18 128/79 98 07/14/20 20:00 98.7 F 69 18 140/82 98 Weight Admit Weight 112.037 kg Weight 109.769 kg I&O: 07/13/20 07/14/20 07/15/20 06:59 06:59 06:59 Intake Total 720 1430 850 Output Total 0 Balance 720 1430 850 Result Diagrams: 07/15/20 05:20 07/15/20 05:20 Phys Exam - Physical Examination Constitutional: NAD HEENT: moist MMs, sclera anicteric Neck: full ROM Respiratory: no wheezing, clear to auscultation bilateral Cardiovascular: RRR, no significant murmur Gastrointestinal: soft, non-tender, positive bowel sounds Musculoskeletal: no edema Wrapping present over L arm, no erythema present Neurological: moves all 4 limbs Psychiatric: normal affect, A&O x 3 Skin: no rash Dx/Plan - Plan Plan: 70yo male w/ PMH ESRD on HD MWF, HTN, CAD, DM2 who presents with bleeding from L upper arm fistula site. #Anemia 2/2 hemorrhage of non-functioning LUE fistula site s/p R sided hemodialysis catheter placement #Abscess LUE fistula site -Hgb 9.7 > 9.1 > 8.5 > 8.1 > 8.2. Trended 9.5 > 7.6 > 8-9s after catheter placement. Asymptomatic -Dr. Villegas (trauma surgery) evaluated 07/06, reported no indication for inpatient intervention unless emergent dialysis is required -Dr. Hudson (general surgery) evaluated on 07/08 - 07/09: Underwent R sided hemodialysis catheter placement - 07/12: OR for ligation L arm fistula and I&D abscess associated with LUE fistula site -Abscess culture +MRSA, on doxycyline #Hypotension, resolved in setting of hx HTN -Recurrent during hospitalization, improved over past 2 days -Patient runs low at baseline (SBP 90s), asx -Hold antihypertensives #ESRD on HD -MWF dialysis -Electrolytes stable -Dr. Mota consulted. Dialysis attempted 07/06 but unable to obtain access. Underwent dialysis on 07/10, 07/11, 07/12 #CAD -hold ASA #DM2, HLD -continue home meds Dvt ppx: hold Code: Full Diet: CC/RD-HP PCP: Servando Sherwood Dispo: Servando TURNER pending further medical management Addendum - Attending - Attending Attestation Date/Time: 07/15/20 1208 I personally evaluated the patient and discussed the management with Dr. Reed. I agree with the History, Examination, Assessment and Plan documented above with any addition or exceptions noted below. Patient has been started on antibiotics following culture results. The patient will have dialysis. Check with gen surg regarding recs and likely back to facility soon.
[2020-07-15 08:39] VITALS: TEMP 98.4
[2020-07-15] MEDS: Calcium Carbonate 500 MG ChewTAB PO SCH (08:57)
[2020-07-15] MEDS: Pregabalin 75 MG CAP PO SCH (08:58)
[2020-07-15] MEDS ORDERED: Doxycycline 100 MG CAP PO SCH (09:00)
[2020-07-15] MEDS ORDERED: Heparin 10,000 UNITS/ 10 ML VIAL ONE (09:31)
[2020-07-15 16:29] VITALS: BP 139/82
--- NOTE | 2020-07-17 11:37 | DIS ---
DATE OF ADMISSION: 07/07/2020 DATE OF DISCHARGE: 07/15/2020 RESIDENT: Nena Reed MD ADMITTING ATTENDING: Elpidio Montenegro MD. DISCHARGE ATTENDING: Ginna Maldonado MD. CONSULT: 1. Dr. Mota, Nephrology. 2. Dr. Hudson, General Surgery. 3. PT/OT. PROCEDURES: 1. Right-sided hemodialysis catheter placement on 07/09/2020. 2. Ligation of left arm fistula and I and D of abscesses associated with left upper extremity fistula site on 07/12/2020. PRIMARY DIAGNOSES: 1. Anemia secondary to hemorrhage of nonfunctioning left upper extremity fistula site status post right-sided hemodialysis catheter placement. 2. Abscess of left upper extremity fistula site status post ligation and irrigation and debridement. 3. Hypotension, now resolved in the setting of history of hypertension. SECONDARY DIAGNOSES: 1. End-stage renal disease, on hemodialysis. 2. Coronary artery disease. 3. Diabetes mellitus 2. 4. Hyperlipidemia. 5. Hypertension. DISCHARGE MEDICATIONS: 1. Lyrica 75 mg p.o. daily. 2. Dulcolax 10 mg MT daily p.r.n. 3. MiraLAX 17 g p.o. p.r.n. 4. [place] 10 p.o. q.8 hours p.r.n. 5. Metoprolol 25 mg p.o. b.i.d. 6. Tums 1000 mg p.o. daily. 7. Acetaminophen 650 mg p.o. q.4 hours p.r.n. 8. Doxycycline 100 mg p.o. daily for 14 days. DISCONTINUED MEDICATIONS: None. HISTORY OF PRESENT ILLNESS: The patient is a 70-year-old male with a history of ESRD on hemodialysis Wednesday, Wednesday, Wednesday, who presented with anemia secondary to hemorrhage of his left upper extremity fistula. This is the 2nd time this has happened during a dialysis session. The patient's hemoglobin was 9.7 in the ED, he was admitted for catheter placement. Hemoglobin has trended daily from 9.7 to 9.1 to 8.5 to 8.1 to 8.2. After right-sided hemodialysis catheter placement on 07/09 trended from 9.5 to 7.6 to ranging [address] Hudson, general surgery, completed the catheter placement on 01/14. Wound care reported pus coming from the left arm fistula site. The patient was taken to the OR on 07/12/2020 for ligation of left arm fistula and I and D of associated abscess. Culture was positive for MRSA and the patient was started on doxycycline. He was discharged on a 14 day course. During hospitalization, the patient was noted to have recurrent hypotension. After treatment of the left fissural abscess on 07/12, blood pressure improved. During hospitalization, the patient underwent dialysis on 07/10 , 07/11 and 07/12 before resuming normal Wednesday, Wednesday, Wednesday schedule. Upon admission, dialysis had been attempted on 07/06, but access was not obtained until the right-sided hemodialysis catheter placement completed. The patient was deemed stable for discharge home on 07/15/2020 to [facility]. DISPOSITION: Stable. DISCHARGE INSTRUCTIONS: 1. Location: [facility]. 2. Diet: Renal diet and heart healthy. 3. Activity: As tolerated. 4. Follow up with PCP within a week and also follow up with Dr. Mota, composing machine operator/tender within 1 week. Job ID: [id number] MTDD
--- NOTE | 2020-07-21 19:28 | EKG ---
Test Reason : POST OP Blood Pressure : / mmHG Vent. Rate : 133 BPM Atrial Rate : 133 BPM P-R Int : 144 ms QRS Dur : 094 ms QT Int : 336 ms P-R-T Axes : 000 -43 087 degrees QTc Int : 500 ms Sinus tachycardia Left axis deviation Possible Anterolateral infarct , age undetermined Abnormal ECG Confirmed by JOSH MIGUEL MD ([id number]) on 07/21/2020 7:27:53 PM Referred By: PARMINDER Confirmed By:JOSH MIGUEL MD
--- NOTE | 2020-07-21 19:29 | EKG ---
Test Reason : Blood Pressure : / mmHG Vent. Rate : 125 BPM Atrial Rate : 125 BPM P-R Int : 168 ms QRS Dur : 090 ms QT Int : 336 ms P-R-T Axes : 000 -39 080 degrees QTc Int : 484 ms Sinus tachycardia with Premature atrial complexes with Abberant conduction Left axis deviation Anterolateral infarct (cited on or before 03-JUL-2020) Abnormal ECG When compared with ECG of 09-JUL-2020 14:57, (Unconfirmed) Abberant conduction is now Present Confirmed by JOSH MIGUEL MD ([id number]) on 07/21/2020 7:29:42 PM Referred By: Scott MCDONALD Confirmed By:JOSH MIGUEL MD
== END 2020-07-15 18:03 | DRG 252 ==
LOC: ERS 16:54 → SJJU 20:26 → INTOOBSV 20:26 → OBSVTOIN 07-07 07:04
PROVIDERS: ADMIT Family Medicine; ATTEND Family Medicine
PROC: 031B0ZF Bypass Right Radial Artery to Lower Arm Vein, Open Approach (ICD-10-PCS; 2020-07-09)
PROC: 0JH63XZ Insertion of Tunneled Vascular Access Device into Chest Subcutaneous Tissue and Fascia, Percutaneous Approach (ICD-10-PCS; 2020-07-09)
PROC: 02HV33Z Insertion of Infusion Device into Superior Vena Cava, Percutaneous Approach (ICD-10-PCS; 2020-07-09)
PROC: B548ZZA Ultrasonography of Superior Vena Cava, Guidance (ICD-10-PCS; 2020-07-09)
PROC: 03LC0ZZ Occlusion of Left Radial Artery, Open Approach (ICD-10-PCS; principal; 2020-07-12)
PROC: 06HY33Z Insertion of Infusion Device into Lower Vein, Percutaneous Approach (ICD-10-PCS; 2020-07-12)
DX: T82.838A Hemorrhage due to vascular prosthetic devices, implants and grafts, initial encounter (principal); N18.6 End stage renal disease; R57.8 Other shock; I12.0 Hypertensive chronic kidney disease with stage 5 chronic kidney disease or end stage renal disease; T82.7XXA Infection and inflammatory reaction due to other cardiac and vascular devices, implants and grafts, initial encounter; Y83.2 Surgical operation with anastomosis, bypass or graft as the cause of abnormal reaction of the patient, or of later complication, without mention of misadventure at the time of the procedure; Z20.822 Contact with and (suspected) exposure to COVID-19; E11.22 Type 2 diabetes mellitus with diabetic chronic kidney disease; E78.5 Hyperlipidemia, unspecified; I25.10 Atherosclerotic heart disease of native coronary artery without angina pectoris; I95.9 Hypotension, unspecified; D63.1 Anemia in chronic kidney disease; M54.9 Dorsalgia, unspecified; G89.29 Other chronic pain; Z99.2 Dependence on renal dialysis; Z88.5 Allergy status to narcotic agent; Z79.82 Long term (current) use of aspirin; I25.2 Old myocardial infarction; Z87.891 Personal history of nicotine dependence; Z79.899 Other long term (current) drug therapy; E87.6 Hypokalemia; M85.80 Other specified disorders of bone density and structure, unspecified site; J44.9 Chronic obstructive pulmonary disease, unspecified
CPT/HCPCS: 12001; 36415; 36416; 36430; 71045; 80048; 80053; 82553; 83036; 83880; 84484; 85025; 85610; 85730; 86850; 86900; 86901; 87070; 87076; 87077; 87186; 87205; 87635; 90935; 93005; 93010; 93970; 99285; A6448; C1751; C1752; G0257; G0378; J0690; J1642; J1644; J2250; J2370; J2405; J2704; J2720; J3010; J3370; J3490; P9016; S0020; U0003

== ENCOUNTER 2021-10-19 11:41 | Emergency (ER) | payer MEDICARE, MEDICAID ==
[2021-10-19] MEDS ORDERED: Vancomycin 1 GM/200 ML BAG ONE (12:17)
[2021-10-19] MEDS ORDERED: cefTRIAXone\\ROCEPHIN 2 GM VIAL ONE (12:17)
[2021-10-19] MEDS ORDERED: Cefepime 2 GM VIAL ONE (12:18)
[2021-10-19] MEDS ORDERED: Acetaminophen 500 MG TAB ONE (12:29)
[2021-10-19 12:39] LABS: Hemoglobin 15.7 g/dL (14.0-18.0); Mean Corpuscular HGB CONC 31.9 g/dL (32.0-36.0); Mean Corpuscular Hemoglobin 33.2 pg (27.0-31.0); RBC Distribution Width 14.1 % (11.5-14.5); Red Blood Cell (RBC) Count 4.74 mill/uL (4.70-6.10); White Blood Cell (WBC) Count 5.7 thou/uL (4.8-10.8)
[2021-10-19 12:58] LABS: ALT (SGPT) 8 U/L (8-55); AST (SGOT) 31 U/L (5-34); Albumin 2.8 g/dL (3.4-4.8); Alkaline Phosphatase 93 U/L (40-110); Anion Gap 20 mmol/L (10-20); BUN (Urea Nitrogen) 47 mg/dL (8.4-25.7); Bilirubin, Total 1.1 mg/dL (0.2-1.2); Calc. Creatinine Clearance 0 mL/min (70-130); Calcium 8.5 mg/dL (7.8-10.44); Carbon Dioxide 22 mmol/L (23-31); Chloride 96 mmol/L (98-107); Globulin 6.2 g/dL (2.4-3.5); Glucose 155 mg/dL (83-110); Potassium 4.5 mmol/L (3.5-5.1); Sodium 133 mmol/L (136-145)
[2021-10-19 13:06] LABS: Band 16 % (5-11); Burr Cells SLIGHT = 2-5 cells (100X) (0-1/hpf); Lymphocytes 4 % (21-51); MDiff Complete? YES; Macrocytosis SLIGHT = 6-15 cells (100X) (0-5/hpf); Mean Platelet Volume 10.8 fL (7.4-10.4); Neutrophil 80 % (42-75); Platelet Count 40 thou/uL (130-400); Platelet Morphology Comment Appears Decreased; Polychromasia SLIGHT = 2-3 cells (100X) (0-2/hpf)
[2021-10-19 13:14] LABS: ALT (SGPT) 8 U/L (8-55); AST (SGOT) 37 U/L (5-34); Albumin 2.7 g/dL (3.4-4.8); Alkaline Phosphatase 89 U/L (40-110); Anion Gap 20 mmol/L (10-20); BUN (Urea Nitrogen) 46 mg/dL (8.4-25.7); Calc. Creatinine Clearance 0 mL/min (70-130); Calcium 8.3 mg/dL (7.8-10.44); Carbon Dioxide 21 mmol/L (23-31); Chloride 97 mmol/L (98-107); Globulin 6.2 g/dL (2.4-3.5); Glucose 150 mg/dL (83-110); Lipase 16 U/L (8-78); Potassium 5.1 mmol/L (3.5-5.1); Protein, Total 8.9 g/dL (5.8-8.1); Sodium 133 mmol/L (136-145)
[2021-10-19 13:31] LABS: CKMB 0.4 ng/mL (0-6.6)
[2021-10-19 14:11] LABS: SARS-CoV-2 NAA Rapid Test Not Detected (NotDetected)
[2021-10-19 15:46] LABS: Lactic Acid 3.8 mmol/L (0.5-2.2)
== END 2021-10-19 16:17 | disposition short-term general hospital (02) ==
LOC: ERS 11:41
DX: A41.9 Sepsis, unspecified organism (principal); Z20.822 Contact with and (suspected) exposure to COVID-19; E11.22 Type 2 diabetes mellitus with diabetic chronic kidney disease; I12.0 Hypertensive chronic kidney disease with stage 5 chronic kidney disease or end stage renal disease; N18.6 End stage renal disease; Z87.891 Personal history of nicotine dependence; Z79.899 Other long term (current) drug therapy; Z79.01 Long term (current) use of anticoagulants
CPT/HCPCS: 36415; 71045; 80053; 82553; 83605; 83690; 83880; 84484; 85025; 85652; 86140; 87040; 93005; J0692; J0696; J3370

== ENCOUNTER 2022-04-09 20:15 | Emergency (ER) | payer MEDICARE, MEDICAID ==
[2022-04-09 22:13] LABS: ALT (SGPT) 15 U/L (8-55); AST (SGOT) 31 U/L (5-34); Albumin 1.5 g/dL (3.4-4.8); Alkaline Phosphatase 252 U/L (40-110); Anion Gap 8 mmol/L (10-20); BUN (Urea Nitrogen) 20 mg/dL (8.4-25.7); Bilirubin, Total 0.8 mg/dL (0.2-1.2); Calc. Creatinine Clearance 0 mL/min (70-130); Calcium 8.3 mg/dL (7.8-10.44); Carbon Dioxide 28 mmol/L (23-31); Chloride 104 mmol/L (98-107); Estimated GFR 18; Globulin 5.9 g/dL (2.4-3.5); Glucose 117 mg/dL (83-110); Potassium 3.8 mmol/L (3.5-5.1); Protein, Total 7.4 g/dL (5.8-8.1); Sodium 136 mmol/L (136-145)
[2022-04-09 22:16] LABS: #Basophils 0.1 thou/uL (0.0-0.2); #Eosinphils 0.1 thou/uL (0.0-0.7); #Monocytes 0.5 thou/uL (0.11-0.59); #Neutrophils 6.5 thou/uL (1.40-6.50); %Basophils 0.9 % (0.0-1.0); %Eosinophils 1.2 % (0.0-10.0); %Monocytes 5.9 % (0.0-10.0); %Neutrophils 80.1 % (42.0-75.0); Hemoglobin 11.1 g/dL (14.0-18.0); Mean Corpuscular HGB CONC 29.7 g/dL (32.0-36.0); Mean Corpuscular Hemoglobin 29.9 pg (27.0-31.0); Mean Platelet Volume 8.8 fL (7.4-10.4); Platelet Count 95 thou/uL (130-400); RBC Distribution Width 18.9 % (11.5-14.5); Red Blood Cell (RBC) Count 3.71 mill/uL (4.70-6.10); White Blood Cell (WBC) Count 8.1 thou/uL (4.8-10.8)
[2022-04-10] MEDS ORDERED: Ondansetron ODT 4 MG TAB ONE (00:07)
== END 2022-04-10 00:37 ==
LOC: ERS 20:15
DX: R10.30 Lower abdominal pain, unspecified (principal); I12.0 Hypertensive chronic kidney disease with stage 5 chronic kidney disease or end stage renal disease; E11.22 Type 2 diabetes mellitus with diabetic chronic kidney disease; N18.6 End stage renal disease; I25.2 Old myocardial infarction; Z99.2 Dependence on renal dialysis; Z87.891 Personal history of nicotine dependence; Z79.899 Other long term (current) drug therapy; Z79.82 Long term (current) use of aspirin
CPT/HCPCS: 36415; 74176; 80053; 83605; 85025; Q0162